=== PATIENT | female | born 1940 | race Caucasian/White ===

== ENCOUNTER → 2016-04-24 | Outpatient (CLI) | payer OTHER, BC ==
[~2016-04-24] MED LIST: ACET325T96 PO; AMLO2.5T PO; ASPCH81X PO; ASPEC81 PO; ASPI-435 PO; ATOR10TA88 PO; ATV5 PO; CALC-354 PO; CALCTAB5 PO; CTP1 PO; CTP1X PO; CTP2 PO; DOCU-94 PO; DOCU100C22 PO; LPT10 PO; METO50TA16 PO; MOML PO; MULT-411 PO; MULTTAB5 PO; OMEG10007 PO; OXYC1TAB3 PO; PANT40TA PO; SNM/25100 PO; SPR25 PO; TPRSR/100 PO
== END | disposition home or self-care (01) ==
LOC: C.LABSPEC 16:17
PROVIDERS: ATTEND Obstetrics & Gynecology
DX: N76.0 Acute vaginitis (principal)

== ENCOUNTER → 2016-04-28 | Outpatient (CLI) | payer OTHER, BC ==
[2016-04-28 18:02] LABS: BLOOD UREA NITROGEN 19 mg/dl (7-18); BUN/CREATININE RATIO 13.8 (10-20); CALCIUM 8.6 mg/dl (8.5-10.1); CARBON DIOXIDE 31 mmol/L (21-32); CHLORIDE 102 mmol/L (98-107); GLUCOSE 118 mg/dl (70-99); POTASSIUM 4.2 mmol/L (3.5-5.1); SODIUM 141 mmol/L (136-145)
[2016-04-28 18:09] LABS: URINE APPEARANCE CLEAR (CLEAR); URINE BILIRUBIN NEG (NEG); URINE COLOR YELLOW; URINE EPITHELIAL CELL AUTO >30 /lpf (0-5); URINE NITRITE NEG (NEG); URINE SPECIFIC GRAVITY 1.019 (1.000-1.030); UROBILINOGEN NEG (NEG)
[2016-04-28 18:13] LABS: MANUAL MICROSCOPIC REQUIRED? NO; REVIEW REQ? NO
== END | disposition home or self-care (01) ==
LOC: C.LABBC 14:32
PROVIDERS: ATTEND Internal Medicine
DX: R10.9 Unspecified abdominal pain (principal); R25.1 Tremor, unspecified

== ENCOUNTER → 2016-05-11 | Day surgery (SDC) | payer OTHER, BC ==
[~2016-05-11] VITALS: Ht 162.6 cm; Wt 53.5 kg
[~2016-05-11] MED LIST changes: +OPTIRAY 320 IV PRN; +SODIUM CHLORIDE 0.9% 150ML 150 ML IV SCH
[2016-05-11 09:50] VITALS: BP 154/69; PULSE 99; TEMP 36.2; O2SAT 93; Ht 162.6 cm; Wt 53.5 kg
--- NOTE | 2016-05-11 13:27 | DIAGNOSTIC IMAGING REPORT ---
CT SCAN OF THE ABDOMEN AND PELVIS COMBO PANCREAS PROTOCOL CLINICAL HISTORY: Follow-up cystic pancreatic lesion. COMPARISON STUDY: Abdominal CT scans dated 06/19/2014 and 01/24/2013. TECHNIQUE: Before and following the IV administration of 119 cc of Optiray 320, CT scan of the abdomen and pelvis is performed from the lung bases to the proximal femora. The abdominal CT is performed utilizing the pancreas protocol. Images are reviewed in the axial, sagittal, and coronal planes. IV contrast was administered without complication. Automated dose control exposure was utilized. The examination is degraded by streak artifact from the patient's arms which could not be elevated above the abdomen. CT DOSE: 1581.11 mGycm FINDINGS: Lung bases: The heart is mildly enlarged and there is trace pericardial fluid. Pacemaker leads are noted. The coronary arteries are densely calcified. Foci of scarring with tree-in-bud nodularity and mild bronchiectasis are noted in the right middle lobe and lingula. Calcified granulomas are present at both lung bases. No lobar consolidation or pleural effusion is identified. A fat-containing Bochdalek hernia is noted on the right. Liver: The contrast-enhanced liver is normal in size, contour, and attenuation. There is no intrahepatic biliary ductal dilatation. Hepatic and portal vasculature: Hepatic arterial anatomy is conventional. The hepatic veins, portal veins, superior mesenteric vein, and splenic vein are patent. Gallbladder: Unremarkable. Spleen: Normal in size and attenuation. Pancreas: There is mild glandular atrophy of the pancreas. The pancreatic duct is normal in caliber. No enhancing lesion is seen on the postcontrast images. There is unchanged appearance of a 7 mm ovoid cystic lesion the pancreatic body seen on image #119 as compared to the 06/19/2014 examination. Adrenal glands: Unremarkable. Kidneys: The contrast enhanced kidneys are atrophic. Postoperative change is suggested on the left. There is mild to moderate right-sided hydronephrosis, similar to prior studies. 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 Numerous nonobstructing calculi are noted in the right kidney, with many seen layering within the right-sided extrarenal pelvis. There are nonobstructing calculi seen in the lower pole of the left kidney. There is no left-sided hydronephrosis. The kidneys enhance symmetrically. A subcentimeter hypodensity in the right upper pole likely represents a cyst but is too small for definitive characterization. Abdominal vasculature: The abdominal aorta is normal in course and caliber noting advanced atherosclerotic calcification. Bowel: The small bowel and colon are normal in course and caliber. There is moderate colonic fecal retention. The appendix is well-visualized and normal. Peritoneum: There is no intraperitoneal free air or abdominal ascites. Lymphadenopathy: None. Pelvic viscera: The bladder is normal as visualized. There are calcified uterine fibroids. A vaginal pessary is in place. There is a 4.1 x 3.8 cm solid and cystic lesion in the right adnexa, likely related to the right ovary. This is seen on axial image #282. Skeletal structures: The skeletal structures are osteopenic. Mild lumbosacral spondylosis is observed. No lytic or blastic lesions are seen. There are healed left pubic ring fractures. IMPRESSION: 1. There is unchanged appearance of a 7 mm ovoid/cystic lesion in the body of the pancreas as compared to the 06/19/2014 examination. The appearance remains typical for a small sidebranch IPMN or less likely a mucinous cystic neoplasm. 2. A solid and cystic lesion in the right adnexa measuring up to 4.1 cm is likely related to the right ovary. The appearance is highly concerning for ovarian neoplasm; however, this has not significantly changed in size dating back to the 01/24/2013 examination. Consider gynecology follow-up. 3. There is unchanged appearance of right hydronephrosis with a UPJ type obstruction. There are bilateral nonobstructing renal calculi. 4. Again seen are postoperative changes from partial left nephrectomy. 5. Moderate colonic fecal retention. 6. There are foci of parenchymal nodularity and scarring with minimal bronchiectasis in the right middle lobe and lingula. The appearance suggests a chronic infectious process such as atypical mycobacterial infection. Consider nonemergent pulmonary follow-up. 7. Additional findings as above. Electronically signed by: Matt Arteaga M.D. 05/11/2016 1:25 PM Dictated Date/Time: 05/11/2016 1:07 PM
== END | disposition home or self-care (01) ==
LOC: EDSTATUS 04-24 10:00 → C.MTU 09:40
PROVIDERS: ATTEND Internal Medicine
DX: K86.89 Other specified diseases of pancreas (principal); N13.0 Hydronephrosis with ureteropelvic junction obstruction; N20.0 Calculus of kidney; N83.201 Unspecified ovarian cyst, right side; R10.9 Unspecified abdominal pain; Z85.528 Personal history of other malignant neoplasm of kidney; M85.80 Other specified disorders of bone density and structure, unspecified site

== ENCOUNTER 2016-05-15 11:04 | Inpatient (IN) | payer OTHER, BC ==
[~2016-05-15] VITALS: Ht 162.6 cm; Wt 53.4 kg
[~2016-05-15 11:04] MED LIST changes: -ACET325T96 PO; -ASPCH81X PO; -ASPI-435 PO; -ATOR10TA88 PO; -CALC-354 PO; -CALCTAB5 PO; -CTP1X PO; -CTP2 PO; -DOCU100C22 PO; -MOML PO; -MULT-411 PO; -OMEG10007 PO; -OPTIRAY 320 IV PRN; -OXYC1TAB3 PO; -PANT40TA PO; -SNM/25100 PO; -SODIUM CHLORIDE 0.9% 150ML 150 ML IV SCH; -SPR25 PO; -TPRSR/100 PO
[2016-05-15] MEDS ORDERED: ASPI-435 PO (11:32)
[2016-05-15] MEDS ORDERED: OMEG10007 PO (11:32)
[2016-05-15 12:16] LABS: BASO % 0.1 %; BASO ABS # 0.01 K/uL (0-0.2); COMPLETE YES; HEMATOCRIT 38.9 % (37-47); IG% 0.2 %; MEAN CELL VOLUME 86.8 fL (80-100); MEAN CORPUSCULAR HEMOGLOBIN 29.7 pg (25-34); MEAN CORPUSCULAR HGB CONC 34.2 g/dl (32-36); MEAN PLATELET VOLUME 11.1 fL (7.4-10.4); NEUT % 86.7 %; PLATELET COUNT 214 K/uL (130-400); RED BLOOD COUNT 4.48 M/uL (4.2-5.4); WHITE BLOOD COUNT 8.73 K/uL (4.8-10.8)
[2016-05-15 12:38] LABS: BUN/CREATININE RATIO 13.8 (10-20); CALCIUM 8.9 mg/dl (8.5-10.1); CREATININE 1.2 mg/dl (0.60-1.20); POTASSIUM 3.6 mmol/L (3.5-5.1); PROTHROMBIN TIME (PATIENT) 10.7 SECONDS (9.0-12.0)
--- NOTE | 2016-05-15 13:47 | DIAGNOSTIC IMAGING REPORT ---
CT OF THE HEAD WITHOUT CONTRAST CLINICAL HISTORY: Fall with head injury. COMPARISON STUDY: Head CT February 10, 2015. CT DOSE: 859.24 mGy.cm TECHNIQUE: Helical axial images of the head were obtained without IV contrast. Automated exposure control was utilized for the study. FINDINGS: No acute intracranial hemorrhage, midline shift or mass effect is present. Ventricular system is normal. Basilar cisterns are patent. There are no extra-axial collections. Diaz-white differentiation is preserved. White matter hypodensity suggests small vessel disease. There are no findings to suggest acute dural sinus thrombosis or acute territorial infarct. A subcentimeter hypodensity within the left basal ganglia is unchanged. There is no calvarial fracture. A tiny air-fluid level within the sphenoid sinuses is noted. IMPRESSION: 1. No acute intracranial findings. 2. No calvarial fracture. Electronically signed by: Akil Cervantes M.D. 05/15/2016 1:46 PM Dictated Date/Time: 05/15/2016 1:44 PM
--- NOTE | 2016-05-15 13:55 | DIAGNOSTIC IMAGING REPORT ---
CT SCAN OF THE CERVICAL SPINE CLINICAL HISTORY: Trauma. Fall. COMPARISON STUDY: CT scan of cervical spine dated 02/10/2015. TECHNIQUE: CT scan of the cervical spine is performed from the skull base to the upper thoracic spine. Images are reviewed in the axial, sagittal, and coronal planes. IV contrast was not administered for this examination. FINDINGS: Skeletal structures: The skeletal structures are osteopenic. There is no evidence of fracture or subluxation involving the cervical spine. Vertebral body height and alignment are maintained. The odontoid process and lateral masses are intact. The atlantoaxial articulation is preserved noting productive degenerative change. The spinous processes appear intact. There is mild to moderate multilevel cervical spondylosis. Facet arthropathy is noted throughout and contributes to multilevel neural foraminal stenosis. Intervertebral discs: There is moderate degenerative disc space narrowing at C5-C6. The remaining disc spaces appear well maintained. Central canal: A posterior disc osteophyte complex at C5-C6 may contribute to mild acquired compromise of the central canal. Soft tissues: The prevertebral and paraspinous soft tissues are within normal limits. There is atherosclerotic calcification of the carotid bulbs. There is a 7 mm nodule in the posterior right lobe of the thyroid gland. Calvarium: The visualized calvarium at the skull base appears intact. Brain parenchyma: Partially visualized brain parenchyma the skull base is within normal limits noting age-related involutional change. Sinuses and mastoids: Trace fluid is present within the sphenoid sinuses. There is a small left mastoid effusion. The right mastoid air cells are well pneumatized. Lung apices: Biapical scarring is observed. Partially imaged apical lung parenchyma is otherwise clear as visualized. IMPRESSION: 1. There is no evidence of fracture or subluxation involving the cervical spine. 2. Osteopenia and spondylotic change as above. Electronically signed by: Matt Arteaga M.D. 05/15/2016 1:54 PM Dictated Date/Time: 05/15/2016 1:49 PM
--- NOTE | 2016-05-15 14:34 | DIAGNOSTIC IMAGING REPORT ---
CHEST ONE VIEW PORTABLE CLINICAL HISTORY: Pain status post Trauma COMPARISON STUDY: 12/19/2014 FINDINGS: The heart is at the upper limits of normal in size. There is a left subclavian dual-chamber central venous pacemaker present. The patient is mildly hyperinflated. There is no focal pulmonary consolidation. There are no pleural effusions. No pneumothorax is visualized.[ IMPRESSION: No active disease in the chest. Electronically signed by: Mihir Woods M.D. 05/15/2016 2:32 PM Dictated Date/Time: 05/15/2016 2:30 PM
--- NOTE | 2016-05-15 14:35 | DIAGNOSTIC IMAGING REPORT ---
SINGLE VIEW PELVIS; 2 VIEWS RIGHT HIP CLINICAL HISTORY: Fall with right hip pain. FINDINGS: An AP portable pelvic radiograph with AP and frog-leg portable views of the right hip are correlated with pelvic CT dated 05/11/2016. The skeletal structures are osteopenic. There is no radiographic evidence of fracture in the hips or bony pelvis. Mild arthritic change is seen in both hips. Mild sclerotic change is noted in the sacroiliac joints. There is contour deformity from a healed left pubic ring fracture. The overlying soft tissues are within normal limits. Advanced atherosclerotic calcification is present in the femoral arteries. There is a nonobstructed abdominal bowel gas pattern noting moderate colonic fecal retention. Residual enteric contrast is noted in the rectosigmoid colon. IMPRESSION: 1. No acute bony abnormality is seen in the hips or pelvis. 2. Osteopenia and mild degenerative change as above. 3. Constipation. Electronically signed by: Matt Arteaga M.D. 05/15/2016 2:33 PM Dictated Date/Time: 05/15/2016 2:31 PM
[2016-05-15 14:59] LABS: URINE APPEARANCE CLOUDY (CLEAR); URINE BILIRUBIN NEG (NEG); URINE COLOR YELLOW; URINE NITRITE NEG (NEG); URINE SPECIFIC GRAVITY 1.014 (1.000-1.030); UROBILINOGEN NEG (NEG); ZZURINE CULT IF INDIC CATH NO
[2016-05-15 15:02] LABS: MANUAL MICROSCOPIC REQUIRED? NO; REVIEW REQ? NO
[2016-05-15] MEDS ORDERED: ACETAMINOPHEN 325 MG TAB PO PRN (15:15)
[2016-05-15] MEDS ORDERED: METOPROLOL TARTRATE 50 MG TAB PO PRN (15:15)
[2016-05-15] MEDS ORDERED: ONDANSETRON INJ 2 MG/ML 2 ML VIAL IV PRN (15:15)
[2016-05-15] MEDS ORDERED: ALUMINUM/MAGNESIUM/SIMETH (MAALOX MAX) 30 ML UDC PO PRN (15:15)
[2016-05-15] MEDS ORDERED: MAGNESIUM HYDROXIDE SUSP 30 ML UDC PO PRN (15:15)
[2016-05-15] MEDS ORDERED: POLYETHYLENE (MIRALAX) 17 GM PACK PO PRN ×2 (15:15→16:00)
--- NOTE | 2016-05-15 15:23 | History and Physical ---
History & Physical Date & Time of Service: May 15, 2016 at 15:10 Chief Complaint: FALL Primary Care Physician: RV. Briggs MD History of Present Illness Source: patient, family Patient is a pleasant 75 y/o female, with PMHx of Parkinson disease, HTN, HDL, CAD, paroxysmal a.fib, s/p pacemaker implant, and GERD, who presented to the ED because of a fall occurring the night of 05/14-05/15. Per patient, she went to bed feeling well. She does not remember falling. She denies any injuries or pain at this time. Family states that patient's Parkinson has been progressing rapidly. She has had multiple falls over the last couple of months. Her dementia has been progressing as well. They do not feel she is safe to live at home alone anymore. Patient denies any fever, chills, sweats, lightheadedness, dizziness, vision changes, CP, palpitations, edema, SOB, wheezing, cough, abdominal pain, nausea, vomiting, diarrhea, urinary symptoms, melena, numbness/tingling, weakness, muscle/joint pain, anxiety/depression, active bleeding, or new skin discoloration/changes. Past Medical/Surgical History Medical Problems: 1. Parkinson disease2 2. HTN 3. HDL 4. CAD 5. Paroxysmal a.fib 6. s/p pacemaker implant 7. GERD Family History No pertinent family history Social History Smoking Status: Former Smoker Drug Use: none Housing status: lives alone Occupational Status: retired Immunizations History of Influenza Vaccine: Yes Influenza Vaccine Date: Nov 26, 2008 History of Tetanus Vaccine?: Yes Tetanus Immunization Date: Nov 27, 2007 History of Pneumococcal: Yes Pneumococcal Date: Nov 27, 2007 History of Hepatitis B Vaccine: No Multi-Drug Resistant Organisms History of MDRO: No Allergies Coded Allergies: Diclofenac (Verified Adverse Reaction, Severe, NAUSEA, 05/15/16) Penicillins (Verified Adverse Reaction, Severe, N/V, 05/15/16) Replaces AUGMENTIN 250 Ciprofloxacin (Verified Adverse Reaction, Unknown, "i get irregular heartbeat.", 05/15/16) Home Medications Scheduled Amlodipine (Norvasc), 2.5 MG PO DAILY Aspirin (Aspirin 81), 162 MG PO DAILY Atorvastatin (Lipitor), 10 MG PO DAILY Calcium Carbonate-Cholecalcife (Caltrate 600+D), 1 TAB PEG BID Clonidine HCl (Clonidine HCl), 1 MG PO BID Clonidine HCl (Clonidine HCl), 0.2 MG PO HS Docusate Sodium (Colace), 200 MG PO QAM Fish Oil (Century-3), 2 CAP PO BID Metoprolol Succinate (Metoprolol Succinate ER), 100 MG PO BID Pantoprazole (Protonix), 40 MG PO DAILY Scheduled PRN Lorazepam (Lorazepam), 0.5 MG PO TID PRN for . Metoprolol Tartrate (Lopressor) (Lopressor), 50 MG PO DAILY PRN for PALPITATIONS Miscellaneous Medications Multiple Vitamins W/ Minerals (Centrum), PO Spironolactone (Spironolactone) Physical Exam Vital Signs Date Time Temp Pulse Resp B/P Pulse Ox O2 Delivery O2 Flow Rate FiO2 05/15/16 12:13 71 05/15/16 11:09 36.6 70 16 116/62 94 Room Air General Appearance: no apparent distress Head: normocephalic, atraumatic Eyes: normal inspection, PERRL ENT: hearing grossly normal Neck: supple Respiratory/Chest: lungs clear, no respiratory distress, no accessory muscle use Cardiovascular: regular rate, rhythm Abdomen/GI: normal bowel sounds, non tender, soft Back: normal inspection Extremities/Musculoskelatal: no calf tenderness, no pedal edema Neurologic/Psych: alert, + pertinent finding (parkinson tremor ) Skin: normal color, warm/dry, no rash Diagnostics Laboratory Results Results Past 24 Hours Test 05/15/16 12:00 05/15/16 14:25 Range/Units White Blood Count 8.73 4.8-10.8 K/uL Red Blood Count 4.48 4.2-5.4 M/uL Hemoglobin 13.3 12.0-16.0 g/dL Hematocrit 38.9 37-47 % Mean Corpuscular Volume 86.8 80-100 fL Mean Corpuscular Hemoglobin 29.7 25-34 pg Mean Corpuscular Hemoglobin Concent 34.2 32-36 g/dl Platelet Count 214 130-400 K/uL Mean Platelet Volume 11.1 7.4-10.4 fL Neutrophils (%) (Auto) 86.7 % Lymphocytes (%) (Auto) 8.0 % Monocytes (%) (Auto) 5.0 % Eosinophils (%) (Auto) 0.0 % Basophils (%) (Auto) 0.1 % Neutrophils # (Auto) 7.56 1.4-6.5 K/uL Lymphocytes # (Auto) 0.70 1.2-3.4 K/uL Monocytes # (Auto) 0.44 0.11-0.59 K/uL Eosinophils # (Auto) 0.00 0-0.5 K/uL Basophils # (Auto) 0.01 0-0.2 K/uL RDW Standard Deviation 41.8 36.4-46.3 fL RDW Coefficient of Variation 13.1 11.5-14.5 % Immature Granulocyte % (Auto) 0.2 % Immature Granulocyte # (Auto) 0.02 0.00-0.02 K/uL Prothrombin Time 10.7 9.0-12.0 SECONDS Prothromb Time International Ratio 1.0 0.9-1.1 Activated Partial Thromboplast Time 25.0 21.0-31.0 SECONDS Partial Thromboplastin Ratio 1.0 Sodium Level 137 136-145 mmol/L Potassium Level 3.6 3.5-5.1 mmol/L Chloride Level 99 98-107 mmol/L Carbon Dioxide Level 28 21-32 mmol/L Anion Gap 10.0 3-11 mmol/L Blood Urea Nitrogen 17 7-18 mg/dl Creatinine 1.20 0.60-1.20 mg/dl Est Creatinine Clear Calc Drug Dose 33.1 ml/min Estimated GFR () 50.5 Estimated GFR (Non- 43.6 BUN/Creatinine Ratio 13.8 10-20 Random Glucose 101 70-99 mg/dl Calcium Level 8.9 8.5-10.1 mg/dl Total Bilirubin 0.5 0.2-1 mg/dl Aspartate Amino Transf (AST/SGOT) 26 15-37 U/L Alanine Aminotransferase (ALT/SGPT) 31 12-78 U/L Alkaline Phosphatase 104 45-117 U/L Total Creatine Kinase 349 26-192 U/L Total Protein 7.5 6.4-8.2 gm/dl Albumin 3.7 3.4-5.0 gm/dl Globulin 3.8 2.5-4.0 gm/dl Albumin/Globulin Ratio 1.0 0.9-2 Urine Color YELLOW Urine Appearance CLOUDY CLEAR Urine pH 7.0 4.5-7.5 Urine Specific [place] 1.014 1.000-1.030 Urine Protein 1+ NEG Urine Glucose (UA) NEG NEG Urine Ketones 1+ NEG Urine Occult Blood 3+ NEG Urine Nitrite NEG NEG Urine Bilirubin NEG NEG Urine Urobilinogen NEG NEG Urine Leukocyte Esterase TRACE NEG Urine WBC (Auto) 1-5 0-5 /hpf Urine RBC (Auto) >30 0-4 /hpf Urine Hyaline Casts (Auto) 0 0-5 /lpf Urine Epithelial Cells (Auto) 5-10 0-5 /lpf Urine Bacteria (Auto) NEG NEG Diagnostic Radiology SINGLE VIEW PELVIS; 2 VIEWS RIGHT HIP CLINICAL HISTORY: Fall with right hip pain. FINDINGS: An AP portable pelvic radiograph with AP and frog-leg portable views of the right hip are correlated with pelvic CT dated 05/11/2016. The skeletal structures are osteopenic. There is no radiographic evidence of fracture in the hips or bony pelvis. Mild arthritic change is seen in both hips. Mild sclerotic change is noted in the sacroiliac joints. There is contour deformity from a healed left pubic ring fracture. The overlying soft tissues are within normal limits. Advanced atherosclerotic calcification is present in the femoral arteries. There is a nonobstructed abdominal bowel gas pattern noting moderate colonic fecal retention. Residual enteric contrast is noted in the rectosigmoid colon. IMPRESSION: 1. No acute bony abnormality is seen in the hips or pelvis. 2. Osteopenia and mild degenerative change as above. 3. Constipation. Electronically signed by: Matt Arteaga M.D. 05/15/2016 2:33 PM Dictated Date/Time: 05/15/2016 2:31 PM The status of this report is Signed. Draft = Not yet reviewed or approved by Radiologist. Signed = Reviewed and approved by Radiologist. CT OF THE HEAD WITHOUT CONTRAST CLINICAL HISTORY: Fall with head injury. COMPARISON STUDY: Head CT February 10, 2015. CT DOSE: 859.24 mGy.cm TECHNIQUE: Helical axial images of the head were obtained without IV contrast. Automated exposure control was utilized for the study. FINDINGS: No acute intracranial hemorrhage, midline shift or mass effect is present. Ventricular system is normal. Basilar cisterns are patent. There are no extra-axial collections. Diaz-white differentiation is preserved. White matter hypodensity suggests small vessel disease. There are no findings to suggest acute dural sinus thrombosis or acute territorial infarct. A subcentimeter hypodensity within the left basal ganglia is unchanged. There is no calvarial fracture. A tiny air-fluid level within the sphenoid sinuses is noted. IMPRESSION: 1. No acute intracranial findings. 2. No calvarial fracture. Electronically signed by: Akil Cervantes M.D. 05/15/2016 1:46 PM Dictated Date/Time: 05/15/2016 1:44 PM The status of this report is Signed. Draft = Not yet reviewed or approved by Radiologist. Signed = Reviewed and approved by Radiologist. CT SCAN OF THE CERVICAL SPINE CLINICAL HISTORY: Trauma. Fall. COMPARISON STUDY: CT scan of cervical spine dated 02/10/2015. TECHNIQUE: CT scan of the cervical spine is performed from the skull base to the upper thoracic spine. Images are reviewed in the axial, sagittal, and coronal planes. IV contrast was not administered for this examination. FINDINGS: Skeletal structures: The skeletal structures are osteopenic. There is no evidence of fracture or subluxation involving the cervical spine. Vertebral body height and alignment are maintained. The odontoid process and lateral masses are intact. The atlantoaxial articulation is preserved noting productive degenerative change. The spinous processes appear intact. There is mild to moderate multilevel cervical spondylosis. Facet arthropathy is noted throughout and contributes to multilevel neural foraminal stenosis. Intervertebral discs: There is moderate degenerative disc space narrowing at C5-C6. The remaining disc spaces appear well maintained. Central canal: A posterior disc osteophyte complex at C5-C6 may contribute to mild acquired compromise of the central canal. Soft tissues: The prevertebral and paraspinous soft tissues are within normal limits. There is atherosclerotic calcification of the carotid bulbs. There is a 7 mm nodule in the posterior right lobe of the thyroid gland. Calvarium: The visualized calvarium at the skull base appears intact. Brain parenchyma: Partially visualized brain parenchyma the skull base is within normal limits noting age-related involutional change. Sinuses and mastoids: Trace fluid is present within the sphenoid sinuses. There is a small left mastoid effusion. The right mastoid air cells are well pneumatized. Lung apices: Biapical scarring is observed. Partially imaged apical lung parenchyma is otherwise clear as visualized. IMPRESSION: 1. There is no evidence of fracture or subluxation involving the cervical spine. 2. Osteopenia and spondylotic change as above. Electronically signed by: Matt Arteaga M.D. 05/15/2016 1:54 PM Dictated Date/Time: 05/15/2016 1:49 PM The status of this report is Signed. Draft = Not yet reviewed or approved by Radiologist. Signed = Reviewed and approved by Radiologist. CHEST ONE VIEW PORTABLE CLINICAL HISTORY: Pain status post Trauma COMPARISON STUDY: 12/19/2014 FINDINGS: The heart is at the upper limits of normal in size. There is a left subclavian dual-chamber central venous pacemaker present. The patient is mildly hyperinflated. There is no focal pulmonary consolidation. There are no pleural effusions. No pneumothorax is visualized.[ IMPRESSION: No active disease in the chest. Electronically signed by: Mihir Woods M.D. 05/15/2016 2:32 PM Dictated Date/Time: 05/15/2016 2:30 PM The status of this report is Signed. Draft = Not yet reviewed or approved by Radiologist. Signed = Reviewed and approved by Radiologist. EKG HUERTAAugust ID:[id number] 15-MAY-2016 11:14:59 [facility] Poor data quality, interpretation may be adversely affected Atrial-paced rhythm Left axis deviation Left bundle branch block Abnormal ECG When compared with ECG of 29-SEP-2013 00:45, Electronic atrial pacemaker has replaced Sinus rhythm QT has lengthened Confirmed by MILY KENNEDY ([id number]) on 05/15/2016 2:02:13 PM 25mm/s 10mm/mV 150Hz 8.0 SP2 12SL 241 HD REBECA: 12 Referred by: Confirmed By: MILY Lucero. rate 72 BPM AR interval 206 ms QRS duration 138 ms QT/QTc 470/514 ms P-R-T axes 56 -60 88 1940 (75 yr) Female Room:C07 Loc:15 Quotation Checker:SHANNAN Lewis ind: Impression Assessment and Plan 75 y/o female, with PMHx of Parkinson disease, HTN, HDL, CAD, paroxysmal a.fib, s/p pacemaker implant, and GERD, who presented to the ED because of a fall occurring the night of 05/14-05/15, with family wanting placement. s/p fall: - Admit med/surg w/ fall precautions - IV NSS @ 80 ml/hr - Consult PT/OT - U/A dirty, pending urine culture - PRP and CPK tomorrow AM HTN: Continue Norvasc 2.5 mg, Clonidine 1 mg BID HDL: Continue Atorvastatin 10 mg A.fib: Continue Metoprolol 100 mg BID and 50 mg PRN CAD: Continue ASA 81 mg GERD: Continue Protonix daily GI Prophylaxis: Maalox PRN, IV Zofran PRN, Colace and/or Milk of Mag PRN DVT prophylaxis: Heparin 5000 units SQ q12 hrs, ANETTE and SCDs Code Status: LEVEL I, FULL Dispo: From home, lives alone- family states patient is not safe to live at home , wants placement- social media marketing specialist consulted Level of Care Med/Surg Resuscitation Status FULL RESUSCITATION VTE Prophylaxis VTE Risk Assessment Done? Y/N: Yes Risk Level: Moderate Given or contraindicated: Unfractionated heparin SQ, T.E.D. Stockings, SCD's
[2016-05-15 16:45] VITALS: BP 156/69; PULSE 77; TEMP 37.3; O2SAT 96
[2016-05-15] MEDS ORDERED: SULFAMETHOXAZOLE/TRIMETHOPRIM DS 800/160MG TAB PO ONE (17:00)
[2016-05-15] MEDS ORDERED: POLYETHYLENE (MIRALAX) 17 GM PACK PO ONE (17:00)
[2016-05-15] MEDS: SODIUM CHLORIDE 0.9% 1000ML 1,000 ML IV SCH (17:34)
[2016-05-15] MEDS: CLONIDINE HCL 0.1 MG TAB PO SCH ×2 (17:34→20:18)
--- NOTE | 2016-05-15 17:51 | EMERGENCY ROOM VISIT NOTE ---
History Report prepared by Gt: Varun Hooks Under the Supervision of: Dr. Villa England D.O. First contact with patient: 12:44 Chief Complaint: FALL Stated Complaint: FALL History of Present Illness The patient is a 75 year old female with a history of Parkinson's disease who presents to the Emergency Room with complaints of an acute fall that occurred sometime last night. The patient's neighbor noticed that her lights were still on this morning which usually indicates that something is wrong. The patient was found on the floor next to her bed this morning. The patient stated to her family that she believes it was getting dark when she fell. She now states that she remembers getting into bed, but cannot remember getting up to go to the bathroom. The patient has some trouble with remembering at baseline. She is not on any blood thinners other than aspirin. The patient complains of some intermittent leg pain, but she does not currently have the pain. Patient denies headache, neck pain, change in vision, fevers, chest pain, shortness of breath, nausea, vomiting, diarrhea, pain with urination, and melena. She does not normally wear oxygen. Her last bowel movement was several days ago, which is normal. She has a past history of cancer but is in remission. She has a pacemaker. The patient's children do not believe that the patient should be living alone. Source of History: patient, family Onset: last night Position: other (global) Quality: other (fall) Timing: other (acute) Associated Symptoms: No SOB, No chest pain, No diarrhea, No fevers, No headache, No melena, No nausea, No neck pain, No urinary symptoms, No vomiting Review of Systems See HPI for pertinent positives & negatives. A total of 10 systems reviewed and were otherwise negative. Past Medical & Surgical Medical Problems: (1) A-fib (2) Fall (3) Reflux Family History No pertinent family history Social History Smoking Status: Former Smoker Drug Use: none Housing Status: lives with family Occupation Status: retired Current/Historical Medications Scheduled Amlodipine (Norvasc), 2.5 MG PO DAILY Aspirin (Aspirin 81), 162 MG PO DAILY Atorvastatin (Lipitor), 10 MG PO DAILY Calcium Carbonate-Cholecalcife (Caltrate 600+D), 1 TAB PEG BID Clonidine HCl (Clonidine HCl), 1 MG PO BID Clonidine HCl (Clonidine HCl), 0.2 MG PO HS Docusate Sodium (Colace), 200 MG PO QAM Fish Oil (Peterson-3), 2 CAP PO BID Metoprolol Succinate (Metoprolol Succinate ER), 100 MG PO BID Pantoprazole (Protonix), 40 MG PO DAILY Scheduled PRN Lorazepam (Lorazepam), 0.5 MG PO TID PRN for . Metoprolol Tartrate (Lopressor) (Lopressor), 50 MG PO DAILY PRN for PALPITATIONS Miscellaneous Medications Multiple Vitamins W/ Minerals (Centrum), PO Spironolactone (Spironolactone) Allergies Coded Allergies: Diclofenac (Verified Adverse Reaction, Severe, NAUSEA, 05/15/16) Penicillins (Verified Adverse Reaction, Severe, N/V, 05/15/16) Replaces AUGMENTIN 250 Ciprofloxacin (Verified Adverse Reaction, Unknown, "i get irregular heartbeat.", 05/15/16) Physical Exam Vital Signs Date Time Temp Pulse Resp B/P Pulse Ox O2 Delivery O2 Flow Rate FiO2 05/15/16 14:00 64 16 122/66 94 05/15/16 12:13 71 05/15/16 11:09 36.6 70 16 116/62 94 Room Air Physical Exam GENERAL: Chronically ill appearing, sitting up in bed, no acute distress. HEAD: normal cephalic, atraumatic EYE EXAM: normal conjunctiva, PERRL and EOM's grossly intact OROPHARYNX: no exudate, no erythema, lips, buccal mucosa, and tongue normal and mucous membranes are moist EARS: TMs clear b/l NECK: supple, no nuchal rigidity, no adenopathy, mild bilateral paraspinal tenderness. CHEST: stable to compression anteriorly and posteriorly LUNGS: clear to auscultation. Normal chest wall mechanics HEART: no murmurs, S1 normal and S2 normal ABDOMEN: abdomen soft, non-tender, normo-active bowel sounds, no masses, no rebound or guarding. PELVIS: stable to compression anteriorly and posteriorly BACK: Back is symmetrical on inspection and there is no deformity, no midline tenderness, no CVA tenderness. UPPER EXTREMITIES: full active and passive range of motion of all joints without tenderness to palpation LOWER EXTREMITIES: full active and passive range of motion of all joints without tenderness to palpation NEURO EXAM: Normal sensorium, cranial nerves II-XII grossly intact, normal speech. GCS: 15. Intermittent shaking of the upper extremities. Medical Decision & Procedures ER Provider Diagnostic Interpretation: Xray results per the radiologist and my interpretation. Other results have been interpreted by the radiologist and reviewed by me. CHEST ONE VIEW PORTABLE CLINICAL HISTORY: Pain status post Trauma COMPARISON STUDY: 12/19/2014 FINDINGS: The heart is at the upper limits of normal in size. There is a left subclavian dual-chamber central venous pacemaker present. The patient is mildly hyperinflated. There is no focal pulmonary consolidation. There are no pleural effusions. No pneumothorax is visualized.[ IMPRESSION: No active disease in the chest. Electronically signed by: Mihir Woods M.D. 05/15/2016 2:32 PM Dictated Date/Time: 05/15/2016 2:[address] SCAN OF THE CERVICAL SPINE CLINICAL HISTORY: Trauma. Fall. COMPARISON STUDY: CT scan of cervical spine dated 02/10/2015. TECHNIQUE: CT scan of the cervical spine is performed from the skull base to the upper thoracic spine. Images are reviewed in the axial, sagittal, and coronal planes. IV contrast was not administered for this examination. FINDINGS: Skeletal structures: The skeletal structures are osteopenic. There is no evidence of fracture or subluxation involving the cervical spine. Vertebral body height and alignment are maintained. The odontoid process and lateral masses are intact. The atlantoaxial articulation is preserved noting productive degenerative change. The spinous processes appear intact. There is mild to moderate multilevel cervical spondylosis. Facet arthropathy is noted throughout and contributes to multilevel neural foraminal stenosis. Intervertebral discs: There is moderate degenerative disc space narrowing at C5-C6. The remaining disc spaces appear well maintained. Central canal: A posterior disc osteophyte complex at C5-C6 may contribute to mild acquired compromise of the central canal. Soft tissues: The prevertebral and paraspinous soft tissues are within normal limits. There is atherosclerotic calcification of the carotid bulbs. There is a 7 mm nodule in the posterior right lobe of the thyroid gland. Calvarium: The visualized calvarium at the skull base appears intact. Brain parenchyma: Partially visualized brain parenchyma the skull base is within normal limits noting age-related involutional change. Sinuses and mastoids: Trace fluid is present within the sphenoid sinuses. There is a small left mastoid effusion. The right mastoid air cells are well pneumatized. Lung apices: Biapical scarring is observed. Partially imaged apical lung parenchyma is otherwise clear as visualized. IMPRESSION: 1. There is no evidence of fracture or subluxation involving the cervical spine. 2. Osteopenia and spondylotic change as above. Electronically signed by: Matt Arteaga M.D. 05/15/2016 1:54 PM Dictated Date/Time: 05/15/2016 1:[address] OF THE HEAD WITHOUT CONTRAST CLINICAL HISTORY: Fall with head injury. COMPARISON STUDY: Head CT February 10, 2015. CT DOSE: 859.24 mGy.cm TECHNIQUE: Helical axial images of the head were obtained without IV contrast. Automated exposure control was utilized for the study. FINDINGS: No acute intracranial hemorrhage, midline shift or mass effect is present. Ventricular system is normal. Basilar cisterns are patent. There are no extra-axial collections. Diaz-white differentiation is preserved. White matter hypodensity suggests small vessel disease. There are no findings to suggest acute dural sinus thrombosis or acute territorial infarct. A subcentimeter hypodensity within the left basal ganglia is unchanged. There is no calvarial fracture. A tiny air-fluid level within the sphenoid sinuses is noted. IMPRESSION: 1. No acute intracranial findings. 2. No calvarial fracture. Electronically signed by: Akil Cervantes M.D. 05/15/2016 1:46 PM Dictated Date/Time: 05/15/2016 1:44 PM SINGLE VIEW PELVIS; 2 VIEWS RIGHT HIP CLINICAL HISTORY: Fall with right hip pain. FINDINGS: An AP portable pelvic radiograph with AP and frog-leg portable views of the right hip are correlated with pelvic CT dated 05/11/2016. The skeletal structures are osteopenic. There is no radiographic evidence of fracture in the hips or bony pelvis. Mild arthritic change is seen in both hips. Mild sclerotic change is noted in the sacroiliac joints. There is contour deformity from a healed left pubic ring fracture. The overlying soft tissues are within normal limits. Advanced atherosclerotic calcification is present in the femoral arteries. There is a nonobstructed abdominal bowel gas pattern noting moderate colonic fecal retention. Residual enteric contrast is noted in the rectosigmoid colon. IMPRESSION: 1. No acute bony abnormality is seen in the hips or pelvis. 2. Osteopenia and mild degenerative change as above. 3. Constipation. Electronically signed by: Matt Arteaga M.D. 05/15/2016 2:33 PM Dictated Date/Time: 05/15/2016 2:31 PM Laboratory Results 05/15/16 12:00 Red Blood Count 4.48, Mean Corpuscular Volume 86.8, Mean Corpuscular Hemoglobin 29.7, Mean Corpuscular Hemoglobin Concent 34.2, Mean Platelet Volume 11.1, Neutrophils (%) (Auto) 86.7, Lymphocytes (%) (Auto) 8.0, Monocytes (%) (Auto) 5.0, Eosinophils (%) (Auto) 0.0, Basophils (%) (Auto) 0.1, Neutrophils # (Auto) 7.56, Lymphocytes # (Auto) 0.70, Monocytes # (Auto) 0.44, Eosinophils # (Auto) 0.00, Basophils # (Auto) 0.01 05/15/16 12:00 Test 05/15/16 12:00 05/15/16 14:25 White Blood Count 8.73 K/uL (4.8-10.8) Red Blood Count 4.48 M/uL (4.2-5.4) Hemoglobin 13.3 g/dL (12.0-16.0) Hematocrit 38.9 % (37-47) Mean Corpuscular Volume 86.8 fL (80-100) Mean Corpuscular Hemoglobin 29.7 pg (25-34) Mean Corpuscular Hemoglobin Concent 34.2 g/dl (32-36) Platelet Count 214 K/uL (130-400) Mean Platelet Volume 11.1 fL (7.4-10.4) Neutrophils (%) (Auto) 86.7 % Lymphocytes (%) (Auto) 8.0 % Monocytes (%) (Auto) 5.0 % Eosinophils (%) (Auto) 0.0 % Basophils (%) (Auto) 0.1 % Neutrophils # (Auto) 7.56 K/uL (1.4-6.5) Lymphocytes # (Auto) 0.70 K/uL (1.2-3.4) Monocytes # (Auto) 0.44 K/uL (0.11-0.59) Eosinophils # (Auto) 0.00 K/uL (0-0.5) Basophils # (Auto) 0.01 K/uL (0-0.2) RDW Standard Deviation 41.8 fL (36.4-46.3) RDW Coefficient of Variation 13.1 % (11.5-14.5) Immature Granulocyte % (Auto) 0.2 % Immature Granulocyte # (Auto) 0.02 K/uL (0.00-0.02) Prothrombin Time 10.7 SECONDS (9.0-12.0) Prothromb Time International Ratio 1.0 (0.9-1.1) Activated Partial Thromboplast Time 25.0 SECONDS (21.0-31.0) Partial Thromboplastin Ratio 1.0 Anion Gap 10.0 mmol/L (3-11) Est Creatinine Clear Calc Drug Dose 33.1 ml/min Estimated GFR () 50.5 Estimated GFR (Non- 43.6 BUN/Creatinine Ratio 13.8 (10-20) Calcium Level 8.9 mg/dl (8.5-10.1) Total Bilirubin 0.5 mg/dl (0.2-1) Aspartate Amino Transf (AST/SGOT) 26 U/L (15-37) Alanine Aminotransferase (ALT/SGPT) 31 U/L (12-78) Alkaline Phosphatase 104 U/L (45-117) Total Creatine Kinase 349 U/L (26-192) Total Protein 7.5 gm/dl (6.4-8.2) Albumin 3.7 gm/dl (3.4-5.0) Globulin 3.8 gm/dl (2.5-4.0) Albumin/Globulin Ratio 1.0 (0.9-2) Urine Color YELLOW Urine Appearance CLOUDY (CLEAR) Urine pH 7.0 (4.5-7.5) Urine Specific [place] 1.014 (1.000-1.030) Urine Protein 1+ (NEG) Urine Glucose (UA) NEG (NEG) Urine Ketones 1+ (NEG) Urine Occult Blood 3+ (NEG) Urine Nitrite NEG (NEG) Urine Bilirubin NEG (NEG) Urine Urobilinogen NEG (NEG) Urine Leukocyte Esterase TRACE (NEG) Urine WBC (Auto) 1-5 /hpf (0-5) Urine RBC (Auto) >30 /hpf (0-4) Urine Hyaline Casts (Auto) 0 /lpf (0-5) Urine Epithelial Cells (Auto) 5-10 /lpf (0-5) Urine Bacteria (Auto) NEG (NEG) Laboratory results per my review. ECG Indication: other (fall) Rate (beats per minute): 72 Rhythm: other (atrial paced rhythm) Findings: LBBB, left axis deviation ED Course ED COURSE: Vital signs were reviewed and were normal. The patients medical record was reviewed The above diagnostic studies were performed and reviewed. ED treatments and interventions as stated above. 1250: The patient was evaluated in room C7. A complete history and physical examination was performed. 1440: [facility] The [facility] will be evaluated. 1445: Upon reevaluation, the patient is stable.I discussed my findings with the patient and she understands and agrees with the treatment plan. Based on the patients age, coexisting illnesses, exam and lab findings the decision to treat as an inpatient was made. The patient remained stable while under my care. The patient will be evaluated for further management. Medical Decision Differential diagnoses include major intracranial, cervical, spinal, thoracic, abdominal, pelvic and neurologic injury. Fracture, contusion, sprain, strain, laceration, abrasions included as well. Patient is a 75-year-old female who presents the ER for recurrent falls and unable to care for self at home. Labs show no significant leukocytosis or anemia. BMP along with LFTs and CK are unremarkable. UA was unremarkable. CT head and cervical spine show no acute fractures. Chest x-ray along with x-ray of the hip and pelvis were unremarkable. Multiple discussions with family and they are unable to take her home. Pacemaker interrogation shows A. fib but otherwise unremarkable. At this time she was discussed with internal medicine for a ambulatory dysfunction. Consults Time Called: 1425 Consulting Physician[facility] Returned Call: [phone]: Spoke with Dr. Willoughby [facility]. The patient will be evaluated. Impression Primary Impression: Ambulatory dysfunction Additional Impression: Fall Scribe Attestation The scribe's documentation has been prepared under my direction and personally reviewed by me in its entirety. I confirm that the note above accurately reflects all work, treatment, procedures, and medical decision making performed by me. Departure Information Dispostion Being Evaluated By Hospitalist Referrals RV. Briggs MD (PCP) Patient Instructions My [facility] Problem Qualifiers Additional Impression: Fall Encounter type: initial encounter Qualified Codes: W19.XXXA - Unspecified fall, initial encounter
[2016-05-15 18:16] VITALS: BP 156/69; PULSE 77; TEMP 37.3; O2SAT 94; Ht 162.6 cm; Wt 53.4 kg
[2016-05-15] MEDS: CEFTRIAXONE SOD INJ 1 GM in DEXTROSE 5% ADD-VANTAGE 50ML 50 ML IV SCH (20:03)
[2016-05-15 20:13] VITALS: BP 139/72; PULSE 72; TEMP 36.8; O2SAT 93
[2016-05-15] MEDS: LORAZEPAM 0.5 MG TAB PO PRN (20:15)
[2016-05-15] MEDS: METOPROLOL SUCC 50MG EXT REL TAB PO SCH (20:16)
[2016-05-15] MEDS: HEPARIN SOD 5000 UNIT/0.5 ML CARP SQ SCH (20:18)
[2016-05-15] MEDS ORDERED: SULFAMETHOXAZOLE/TRIMETHOPRIM DS 800/160MG TAB PO SCH (21:00)
[2016-05-15 23:27] VITALS: BP 121/67; PULSE 64; TEMP 36.8; O2SAT 94
[2016-05-16] MEDS: SODIUM CHLORIDE 0.9% 1000ML 1,000 ML IV SCH ×2 (03:55→16:17)
[2016-05-16 07:17] LABS: HEMATOCRIT 36.7 % (37-47); MEAN CORPUSCULAR HEMOGLOBIN 28.9 pg (25-34); MEAN CORPUSCULAR HGB CONC 33.2 g/dl (32-36); MEAN PLATELET VOLUME 11.7 fL (7.4-10.4); PLATELET COUNT 199 K/uL (130-400); RED BLOOD COUNT 4.22 M/uL (4.2-5.4); WHITE BLOOD COUNT 8.56 K/uL (4.8-10.8)
[2016-05-16 07:47] VITALS: BP 121/76; PULSE 124; TEMP 37.7; O2SAT 90
[2016-05-16 07:53] LABS: BUN/CREATININE RATIO 16.2 (10-20); CALCIUM 8.5 mg/dl (8.5-10.1); CREATININE 1.2 mg/dl (0.60-1.20); POTASSIUM 3.8 mmol/L (3.5-5.1)
[2016-05-16] MEDS: ATORVASTATIN 10 MG TAB PO SCH ×3 (07:55→20:21)
[2016-05-16] MEDS: AMLODIPINE BESYLATE 5 MG TAB PO SCH ×3 (07:56→16:17)
[2016-05-16] MEDS: ASPIRIN 81 MG ECTAB PO SCH (07:56)
[2016-05-16] MEDS: CLONIDINE HCL 0.1 MG TAB PO SCH ×3 (07:58→20:21)
[2016-05-16] MEDS: CEROVITE ADV FORMULA TAB PO SCH (07:58)
[2016-05-16] MEDS: METOPROLOL SUCC 50MG EXT REL TAB PO SCH ×2 (07:59→20:22)
[2016-05-16] MEDS: PANTOprazole SOD 40 MG TAB PO SCH (08:00)
[2016-05-16] MEDS: HEPARIN SOD 5000 UNIT/0.5 ML CARP SQ SCH ×2 (08:02→09:00)
[2016-05-16] MEDS: LORAZEPAM 0.5 MG TAB PO PRN ×3 (08:21→22:59)
[2016-05-16] MEDS ORDERED: SPIRONOLACTONE 25 MG TAB PO SCH (09:00)
[2016-05-16] MEDS ORDERED: NURSING VERBAL MED ORDER ONE (09:30)
[2016-05-16] MEDS ORDERED: ENOXAPARIN 40 MG/0.4 ML SYR SQ ONE (11:00)
--- NOTE | 2016-05-16 11:36 | Hospitalist Progress Note ---
Hospitalist Progress Note Date of Service May 16, 2016. Subjective Pt evaluation today including: conversation w/ patient, conversation w/ family , physical exam, chart review, lab review, review of inpatient medication list Pt has c/o proximal thigh pain, otherwise denies any problems. She cannot recall what happened as far as her fall or being on the floor prior to admission. CK and troponin elevated this AM. Family reports she has had multiple falls over the last year, once required praveen to the posterior head. Constitutional: No fever Cardiovascular: No chest pain Abdomen: No nausea, No pain Musculoskeletal: + muscle pain (thighs) Neurologic: + balance problems (multiple falls), + memory loss, + weakness Skin: No rash All Other Systems: Reviewed and Negative Objective Vital Signs Date Time Temp Pulse Resp B/P Pulse Ox O2 Delivery O2 Flow Rate FiO2 05/16/16 07:47 37.7 124 20 121/76 90 Room Air 05/16/16 00:00 Room Air 05/15/16 23:27 36.8 64 18 121/67 94 Room Air 05/15/16 20:13 36.8 72 20 139/72 93 Room Air 05/15/16 20:00 Room Air 05/15/16 18:16 37.3 77 20 156/69 94 Room Air 05/15/16 16:45 37.3 77 20 156/69 96 Room Air 05/15/16 16:45 64 16 104/64 94 05/15/16 14:00 64 16 122/66 94 05/15/16 12:13 71 Physical Exam General Appearance: no apparent distress, + thin Eyes: normal inspection, sclerae normal Neck: trachea midline Respiratory/Chest: lungs clear, normal breath sounds, no respiratory distress, no accessory muscle use Cardiovascular: no edema, no gallop, no murmur, + irregularly irregular Abdomen: normal bowel sounds, non tender, soft Extremities: non-tender (no ttp over prox thighs but is +TTP over left greater trochanter), normal inspection, no pedal edema, no calf tenderness Neurologic/Psychiatric: alert, oriented x 3, + pertinent finding (masked facies , +cogwheel rigidity arms and legs, gait not tested) Skin: normal color, warm/dry, no rash Laboratory Results Last 24 Hours Test 05/15/16 12:00 05/15/16 14:25 05/16/16 06:45 White Blood Count 8.73 K/uL 8.56 K/uL Red Blood Count 4.48 M/uL 4.22 M/uL Hemoglobin 13.3 g/dL 12.2 g/dL Hematocrit 38.9 % 36.7 % Mean Corpuscular Volume 86.8 fL 87.0 fL Mean Corpuscular Hemoglobin 29.7 pg 28.9 pg Mean Corpuscular Hemoglobin Concent 34.2 g/dl 33.2 g/dl Platelet Count 214 K/uL 199 K/uL Mean Platelet Volume 11.1 fL 11.7 fL Neutrophils (%) (Auto) 86.7 % Lymphocytes (%) (Auto) 8.0 % Monocytes (%) (Auto) 5.0 % Eosinophils (%) (Auto) 0.0 % Basophils (%) (Auto) 0.1 % Neutrophils # (Auto) 7.56 K/uL Lymphocytes # (Auto) 0.70 K/uL Monocytes # (Auto) 0.44 K/uL Eosinophils # (Auto) 0.00 K/uL Basophils # (Auto) 0.01 K/uL RDW Standard Deviation 41.8 fL 43.4 fL RDW Coefficient of Variation 13.1 % 13.6 % Immature Granulocyte % (Auto) 0.2 % Immature Granulocyte # (Auto) 0.02 K/uL Prothrombin Time 10.7 SECONDS Prothromb Time International Ratio 1.0 Activated Partial Thromboplast Time 25.0 SECONDS Partial Thromboplastin Ratio 1.0 Sodium Level 137 mmol/L 140 mmol/L Potassium Level 3.6 mmol/L 3.8 mmol/L Chloride Level 99 mmol/L 104 mmol/L Carbon Dioxide Level 28 mmol/L 28 mmol/L Anion Gap 10.0 mmol/L 8.0 mmol/L Blood Urea Nitrogen 17 mg/dl 19 mg/dl Creatinine 1.20 mg/dl 1.20 mg/dl Est Creatinine Clear Calc Drug Dose 33.1 ml/min 33.1 ml/min Estimated GFR () 50.5 50.5 Estimated GFR (Non- 43.6 43.6 BUN/Creatinine Ratio 13.8 16.2 Random Glucose 101 mg/dl 86 mg/dl Calcium Level 8.9 mg/dl 8.5 mg/dl Total Bilirubin 0.5 mg/dl Aspartate Amino Transf (AST/SGOT) 26 U/L Alanine Aminotransferase (ALT/SGPT) 31 U/L Alkaline Phosphatase 104 U/L Total Creatine Kinase 349 U/L 1334 U/L Total Protein 7.5 gm/dl Albumin 3.7 gm/dl Globulin 3.8 gm/dl Albumin/Globulin Ratio 1.0 Urine Color YELLOW Urine Appearance CLOUDY Urine pH 7.0 Urine Specific [place] 1.014 Urine Protein 1+ Urine Glucose (UA) NEG Urine Ketones 1+ Urine Occult Blood 3+ Urine Nitrite NEG Urine Bilirubin NEG Urine Urobilinogen NEG Urine Leukocyte Esterase TRACE Urine WBC (Auto) 1-5 /hpf Urine RBC (Auto) >30 /hpf Urine Hyaline Casts (Auto) 0 /lpf Urine Epithelial Cells (Auto) 5-10 /lpf Urine Bacteria (Auto) NEG Troponin I 0.279 ng/ml Assessment and Plan 75 y/o female, with PMHx of Parkinson's disease, HTN, HL, CAD, paroxysmal a.fib , s/p pacemaker implant, chronic LBBB, osteoporosis, and GERD, who presented to the ED because of a fall occurring the night of 05/14-05/15, with family wanting placement. Parkinson's disease, multiple falls, ambulatory dysfunction, rhabdomyolysis CK 1100 s/p fall mechanical vs syncope, no recollection of event. CT head/Neck, CXR, Hip /pelvis xrays all neg for acute process - Admit med/surg w/ fall precautions - IV NSS @ 80 ml/hr - Consult PT/OT - U/A dirty, pending urine culture - PRP and CPK tomorrow AM HTN, CAD, elevated troponin suspect demand ischemia, Chronic LBBB, h/o pacer, PAF, HL--> asymptomatic but may have had syncope causing fall. Pacer interrogated in ER and A-fib. Not on anticoagulation presumably for high fall risk. 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 Bai for further eval DVT prophylaxis: Lovenox-she is agreeable to this. refusing TEDs and SCDs Code Status: LEVEL I, FULL Dispo: From home, lives alone- family states patient is not safe to live at home , wants placement and I am in full agreement- social media marketing manager consulted for SNF or rehab placement
[2016-05-16 14:02] LABS: CKMB/CK RATIO 0.3 (0-3.0)
--- NOTE | 2016-05-16 14:10 | ECHOCARDIOGRAM REPORT ---
*NOTICE TO RECEIVING CONSTITUTION PARTY AGENCY This information is strictly Confidential and protected under [place] law. [place] law prohibits you from making any further disclosure of this information unless further disclosure is expressly permitted by the written consent of the person to whom it pertains or is authorized by law. A general authorization for the release of medical or other information is not sufficient for this purpose. Hospital accepts no responsibility if the information is made available to any other person, INCLUDING THE PATIENT. Interpretation Summary * Name: CLARITA HUERTA Study Date: 05/16/2016 02:16 PM BP: 121/76 mmHg * Patient Location: .MS2W\S\W255\S\2 HR: 124 * : 1940 (M/d/yyyy) Gender: Female Height: 64 in * Age: 75 yrs Ethnicity: CA Weight: 117 lb * Ordering Physician: Edie Haider * Performed By: Sarah Harrison * * Reason For Study: SYNCOPE * BSA: 1.6 m2 * -- Conclusions -- * Left ventricular systolic function is normal. * No regional wall motion abnormalities noted. * Ejection Fraction = 55-60%. * There is mild concentric left ventricular hypertrophy. * Aortic valve sclerosis mild, without significant aortic valvular stenosis. * There is mild mitral regurgitation. Procedure Details * A complete two-dimensional transthoracic echocardiogram was performed (2D, M-mode, Doppler and color flow Doppler). Left Ventricle * The left ventricle is normal in size. * There is mild concentric left ventricular hypertrophy. * Ejection Fraction = 55-60%. * Left ventricular systolic function is normal. * No regional wall motion abnormalities noted. Right Ventricle * The right ventricle is normal size. * The right ventricular systolic function is normal as assessed by tricuspid annular plane systolic excursion (TAPSE) (normal >1.5 cm). Atria * Borderline left atrial enlargement. * Right atrium not well visualized. * No ASD detected; PFO is not assessed. Mitral Valve * The mitral valve is grossly normal. * There is no mitral valve stenosis. * There is mild mitral regurgitation. Tricuspid Valve * The tricuspid valve is not well visualized. * There is no tricuspid stenosis. * Significant tricuspid regurgitation is absent. Aortic Valve * The aortic valve is tricuspid. The leaflet thickness if normal. There is no aortic stenosis, and no significant insufficiency. * Aortic valve sclerosis mild, without significant aortic valvular stenosis. * There is no significant aortic regurgitation. Pulmonic Valve * The pulmonic valve is not well visualized. Great Vessels * The aortic root is normal size. * The pulmonary is not well visualized. Pericardium/Pleural * There is no pericardial effusion. Great Vessels * IVC not well seen. MMode 2D Measurements and Calculations IVSd 1.6 cm IVSs 1.9 cm LVIDd 3.5 cm LVIDs 2.5 cm LVPWd 1.0 cm LVPWs 2.1 cm IVS/LVPW 1.5 FS 29.1 % EDV(Teich) 52.5 ml ESV(Teich) 22.7 ml EF(Teich) 56.8 % EDV(cubed) 44.6 ml ESV(cubed) 15.9 ml EF(cubed) 64.3 % % IVS thick 20.1 % % LVPW thick 104.8 % LV mass(C)d 158.6 grams LV mass(C)dI 101.8 grams/m\S\2 LV mass(C)s 220.7 grams LV mass(C)sI 141.7 grams/m\S\2 SV(Teich) 29.8 ml SI(Teich) 19.2 ml/m\S\2 SV(cubed) 28.7 ml SI(cubed) 18.4 ml/m\S\2 ACS 1.5 cm LA dimension 2.8 cm asc Aorta Diam 3.3 cm LVOT diam 1.9 cm LVOT area 2.9 cm\S\2 LVAd ap4 23.5 cm\S\2 LVLd ap4 6.3 cm EDV(MOD-sp4) 71.9 ml EDV(sp4-el) 74.5 ml LVAs ap4 15.0 cm\S\2 LVLs ap4 5.8 cm ESV(MOD-sp4) 32.1 ml ESV(sp4-el) 32.9 ml EF(MOD-sp4) 55.4 % EF(sp4-el) 55.8 % LVAd ap2 21.6 cm\S\2 LVLd ap2 6.2 cm EDV(MOD-sp2) 60.5 ml EDV(sp2-el) 64.0 ml LVAs ap2 12.8 cm\S\2 LVLs ap2 5.3 cm ESV(MOD-sp2) 26.2 ml ESV(sp2-el) 26.0 ml EF(MOD-sp2) 56.7 % EF(sp2-el) 59.4 % LVLd %diff -2.15 % EDV(MOD-bp) 66.4 ml LVLs %diff -9.07 % ESV(MOD-bp) 30.3 ml EF(MOD-bp) 54.4 % SV(MOD-sp4) 39.8 ml SI(MOD-sp4) 25.6 ml/m\S\2 SV(MOD-sp2) 34.3 ml SI(MOD-sp2) 22.0 ml/m\S\2 SV(MOD-bp) 36.1 ml SI(MOD-bp) 23.2 ml/m\S\2 SV(sp4-el) 41.6 ml SI(sp4-el) 26.7 ml/m\S\2 SV(sp2-el) 38.0 ml SI(sp2-el) 24.4 ml/m\S\2 Doppler Measurements and Calculations MV E max annemarie 92.7 cm/sec MV dec time 0.18 sec Ao V2 max 136.1 cm/sec Ao max PG 7.4 mmHg Ao max PG (full) 4.3 mmHg JAME(V,A) 1.9 cm\S\2 JAME(V,D) 1.9 cm\S\2 LV V1 max PG 3.1 mmHg LV V1 mean PG 1.3 mmHg LV V1 max 88.6 cm/sec LV V1 mean 49.4 cm/sec LV V1 VTI 16.0 cm MR max annemarie 211.2 cm/sec MR max PG 17.8 mmHg SV(LVOT) 45.7 ml SI(LVOT) 29.3 ml/m\S\2 PA V2 max 100.0 cm/sec PA max PG 4.1 mmHg TR max annemarie 260.7 cm/sec
[2016-05-16 15:23] VITALS: BP 165/69; PULSE 108; TEMP 37.6; O2SAT 94
[2016-05-16] MEDS: CEFTRIAXONE SOD INJ 1 GM in DEXTROSE 5% ADD-VANTAGE 50ML 50 ML IV SCH (16:15)
[2016-05-16 20:19] VITALS: BP 155/65; PULSE 115
--- NOTE | 2016-05-16 22:56 | CARDIOLOGY CONSULTATION ---
DATE OF CONSULTATION: 05/16/2016 PERTINENT HISTORY: Mrs. Manzo is a 75-year-old white female, admitted yesterday after an apparent fall. This consultation was ordered to assist in her cardiac management. The patient was in her usual state of health until the evening of May 14. She apparently fell to the floor as it was just getting dark. She was found by her son the following morning at approximately 9:30 a.m. She was brought to the Emergency Room for further care. Her pacemaker was interrogated while in the Emergency Room and it noted appropriate pacing and occasional paroxysms of atrial fibrillation. The patient does not experience any recent chest discomfort or dyspnea. She further denies syncope, presyncope, PND, orthopnea, lower extremity edema, and claudication. The patient does carry a history of coronary artery disease and apparently suffered an AL in the remote past. No wall motion abnormalities have been identified on echocardiograms or Persantine stress tests previously. The patient also carries a history of tachycardia/bradycardia syndrome. She had a permanent pacemaker placed in 2009. She has not been on long-term anticoagulation therapy due to her high risk and frequent falls. Currently, the patient is resting comfortably in the bedside chair without complaints. Her family is at the bedside. PAST MEDICAL HISTORY: 1. Possible coronary artery disease -- possible remote AL. 2. Hypertension. 3. Hypercholesterolemia. 4. Tachycardia/bradycardia syndrome. 5. Paroxysmal atrial fibrillation. 6. DDD pacemaker -- 2009. 7. Symptomatic PVCs. 8. Parkinson disease. 9. Dementia. 10. GERD. 11. Left partial nephrectomy -- renal cell carcinoma. 12. Right ovarian mass -- stable. 13. History of bronchiectasis. 14. History of multinodular goiter. 15. Peripheral vascular disease. MEDICATIONS: 1. Toprol-XL 100 mg b.i.d. 2. Norvasc 2.5 mg daily. 3. Aspirin 162 mg daily. 4. Lipitor 10 mg at bedtime. 5. Lovenox 40 mg subQ daily. 6. Clonidine 0.1 mg b.i.d. 7. Protonix 40 mg daily. 8. Ceftriaxone 1 g IV daily. 9. Clonidine 0.2 mg at bedtime. 10. Multivitamin daily. ALLERGIES: 1. PENICILLIN. 2. CIPROFLOXACIN. SOCIAL HISTORY: The patient is a and lives alone. She is a retired nurse. Remote history of tobacco use. Does not use alcohol. FAMILY HISTORY: Noncontributory. REVIEW OF SYSTEMS: A 10-point review of systems is negative except for that described above. PHYSICAL EXAMINATION: GENERAL: This is a thin elderly white female, seated in the bedside chair without complaints. VITAL SIGNS: Blood pressure is 120/76 with a regular pulse of 64. Respiratory rate is 20 and the patient is afebrile at 36.8 degrees Celsius. Saturation is 90% on room air. HEENT: Negative. NECK: Supple with full carotid upstrokes. There are no carotid bruits. Jugular venous pressure is flat at 90 degrees. There is no thyromegaly. CARDIOVASCULAR: Reveals irregular rhythm with normal S1 and fixed split S2. No obvious murmurs. CHEST: Reveals a palpable pacemaker in the left subclavicular region. LUNGS: Clear without rales, rhonchi, or wheeze. ABDOMEN: Soft without bruits. EXTREMITIES: Reveal intact radial artery pulses bilaterally. There is no peripheral edema. LABORATORY DATA: CBC notes hemoglobin 12.2, hematocrit 36.7, white count 8.5, platelet count 199,000. Electrolytes note a sodium of 140, potassium 3.8, chloride 104, bicarb 28, BUN 19, creatinine 1.2, glucose 86. Troponin I level is mildly elevated at 0.279. Initial CK was 349 with followup value of 1334. EKG notes atrial pacing with left bundle branch block and a left axis deviation. Chest x-ray shows no acute disease. IMPRESSION: Mrs. Manzo was admitted after a fall and a prolonged period of time on the floor. Pacemaker interrogation noted only paroxysmal atrial fibrillation. The patient has had no cardiac symptoms and simply suffered a mechanical fall. She has had no recent exertional angina pectoris. PLAN: 1. Continue usual outpatient cardiac medications. 2. Await echocardiogram. 3. Further recommendation depending on her clinical course.
[2016-05-17] VITALS: O2SAT 94
[2016-05-17 00:15] VITALS: BP 132/73; PULSE 79; TEMP 36.5; O2SAT 94
[2016-05-17] MEDS: SODIUM CHLORIDE 0.9% 1000ML 1,000 ML IV SCH ×2 (03:50→16:28)
[2016-05-17 07:27] LABS: HEMATOCRIT 36.9 % (37-47); MEAN CELL VOLUME 87.9 fL (80-100); MEAN CORPUSCULAR HEMOGLOBIN 29.5 pg (25-34); MEAN CORPUSCULAR HGB CONC 33.6 g/dl (32-36); MEAN PLATELET VOLUME 10.9 fL (7.4-10.4); PLATELET COUNT 182 K/uL (130-400); WHITE BLOOD COUNT 7.33 K/uL (4.8-10.8)
[2016-05-17 07:55] LABS: BUN/CREATININE RATIO 17.3 (10-20); CREATININE 1.1 mg/dl (0.60-1.20); POTASSIUM 3.7 mmol/L (3.5-5.1)
[2016-05-17 08:00] VITALS: BP 143/83; PULSE 93; TEMP 37.8; O2SAT 90
[2016-05-17] MEDS ORDERED: ENOXAPARIN 40 MG/0.4 ML SYR SQ SCH (09:00)
[2016-05-17] MEDS: ENOXAPARIN 30 MG/0.3 ML SYR SQ SCH ×2 (09:00→09:11)
[2016-05-17] MEDS: ASPIRIN 81 MG ECTAB PO SCH (09:11)
[2016-05-17] MEDS: CEROVITE ADV FORMULA TAB PO SCH (09:11)
[2016-05-17] MEDS: CLONIDINE HCL 0.1 MG TAB PO SCH ×3 (09:12→20:16)
[2016-05-17] MEDS: METOPROLOL SUCC 50MG EXT REL TAB PO SCH ×2 (09:12→20:16)
[2016-05-17] MEDS: PANTOprazole SOD 40 MG TAB PO SCH (09:12)
--- NOTE | 2016-05-17 11:53 | CARDIOLOGY PROGRESS NOTE ---
DATE: 05/17/2016 SUBJECTIVE: Mrs. Manzo is resting comfortably at the bedside without complaints of chest pain, dyspnea, or palpitations. OBJECTIVE: VITAL SIGNS: Blood pressure is 140/83 with an irregular pulse of 80. Respiratory rate is 18. The patient is afebrile at 36.5 degrees Celsius. Saturation is 94% on room air. NECK: Supple with full carotid upstrokes. There are no carotid bruits. Jugular venous pressure is flat at 90 degrees. There is no thyromegaly. CARDIOVASCULAR: Reveals a regular rhythm with distant heart sounds. S1 is normal with a fixed split S2. No obvious murmurs. CHEST: Reveals palpable pacemaker in the left subclavicular region. LUNGS: Clear without rales, rhonchi, or wheezes. ABDOMEN: Soft without bruits. EXTREMITIES: Reveal intact radial artery pulses bilaterally. There is no peripheral edema. DATA: CBC notes hemoglobin of 12.4, hematocrit 36.9, white count 7.3, platelet count 82,000. Electrolytes note a sodium of 140, potassium 3.7, chloride 105, bicarb 25, BUN 19, creatinine 1.1, glucose 85. Troponin I level down to 0.215. CK peaked at 1355. Echocardiogram noted normal left ventricular systolic function with an ejection fraction of 65%. There is mild left ventricular hypertrophy and mild mitral regurgitation. IMPRESSION AND PLAN: 1. Status post mechanical fall -- with mild rhabdomyolysis. 2. Increased troponin -- likely secondary to her left ventricular hypertrophy with resultant demand ischemia. Minor elevation is trending down. No further evaluation necessary except to continue her beta live, calcium channel live. 3. Possible coronary artery disease -- quiescent. 4. Hypertension -- controlled. 5. Hypercholesterolemia. 6. Tachycardia/bradycardia syndrome -- status post DDD pacemaker in 2009. 7. Paroxysmal atrial fibrillation, no long-term anticoagulants due to her high risk of falling. 8. Parkinson disease.
[2016-05-17 15:33] VITALS: BP 170/75; PULSE 86; TEMP 37.3; O2SAT 90
[2016-05-17] MEDS ORDERED: AMLODIPINE BESYLATE 5 MG TAB PO SCH (16:00)
[2016-05-17 16:10] VITALS: O2SAT 90
[2016-05-17] MEDS: CEFTRIAXONE SOD INJ 1 GM in DEXTROSE 5% ADD-VANTAGE 50ML 50 ML IV SCH (16:26)
[2016-05-17] MEDS: LORAZEPAM 0.5 MG TAB PO PRN ×2 (16:33→22:49)
--- NOTE | 2016-05-17 19:29 | Hospitalist Progress Note ---
Hospitalist Progress Note Date of Service May 17, 2016. Subjective Pt evaluation today including: conversation w/ patient, physical exam, lab review, review of studies, conversation w/ new home sales consultant (Cardiology), review of inpatient medication list Pt has no complaints today. Denies CP or SOB, no more pain in legs or hips. Is rishi po, making urine. All Other Systems: Reviewed and Negative Objective Vital Signs Date Time Temp Pulse Resp B/P Pulse Ox O2 Delivery O2 Flow Rate FiO2 05/17/16 15:33 37.3 86 18 170/75 90 Room Air 05/17/16 08:00 37.8 93 18 143/83 90 Room Air 05/17/16 08:00 90 Room Air 05/17/16 00:15 36.5 79 18 132/73 94 Room Air 05/17/16 00:00 94 Room Air 05/16/16 20:19 115 155/65 05/16/16 20:00 Room Air Physical Exam General Appearance: no apparent distress, + thin Eyes: normal inspection, sclerae normal ENT: hearing grossly normal Neck: trachea midline Respiratory/Chest: lungs clear, normal breath sounds, no respiratory distress, no accessory muscle use Cardiovascular: no edema, no murmur, + irregularly irregular Abdomen: normal bowel sounds, non tender, soft Extremities: normal inspection, no calf tenderness Neurologic/Psychiatric: alert, normal mood/affect, + pertinent finding (masked facies, +cogwheel rigidity arms and legs, gait not tested)) Skin: normal color, warm/dry, no rash Laboratory Results Last 24 Hours Test 05/17/16 07:05 White Blood Count 7.33 K/uL Red Blood Count 4.20 M/uL Hemoglobin 12.4 g/dL Hematocrit 36.9 % Mean Corpuscular Volume 87.9 fL Mean Corpuscular Hemoglobin 29.5 pg Mean Corpuscular Hemoglobin Concent 33.6 g/dl RDW Standard Deviation 45.0 fL RDW Coefficient of Variation 13.9 % Platelet Count 182 K/uL Mean Platelet Volume 10.9 fL Sodium Level 140 mmol/L Potassium Level 3.7 mmol/L Chloride Level 105 mmol/L Carbon Dioxide Level 25 mmol/L Anion Gap 10.0 mmol/L Blood Urea Nitrogen 19 mg/dl Creatinine 1.10 mg/dl Est Creatinine Clear Calc Drug Dose 36.1 ml/min Estimated GFR () 56.1 Estimated GFR (Non- 48.4 BUN/Creatinine Ratio 17.3 Random Glucose 85 mg/dl Calcium Level 8.0 mg/dl Total Creatine Kinase 1043 U/L Assessment and Plan 75 y/o female, with PMHx of Parkinson's disease, HTN, HL, CAD, paroxysmal a.fib , s/p pacemaker implant, chronic LBBB, osteoporosis, and GERD, who presented to the ED because of a fall occurring the night of 05/14-05/15, with family wanting placement. Parkinson's disease, multiple falls, ambulatory dysfunction, rhabdomyolysis CK 1355--> 1043 s/p fall mechanical vs syncope, no recollection of event, was down on the ground potentialy for all night. CT head/Neck, CXR, Hip/pelvis xrays all neg for acute process Interrogation of pacer shows A-fib but no other significant events that could cause syncope. Has had multiple falls over the last year, once requiring praveen to the scalp. Lives alone. - IV NSS @ 80 ml/hr given x 2 days for rhabdo, now stop - Consult PT/OT - U/A dirty, urine culture mixed organisms--> stop Rocephin - PRP and CPK tomorrow AM -plan for [facility] and then transition to AL there HTN, CAD, elevated troponin suspect demand ischemia, Chronic LBBB, h/o pacer, PAF, HL--> asymptomatic but may have had syncope causing fall. Pacer interrogated in ER and A-fib. Not on anticoagulation presumably for high fall risk. Trop trended downward slightly and stable at 0.21 ECHO with mild MR, EF 55-60%, mild LVH, no wall motion abnormalities -Consult to Cardiology appreciated--> no further eval needed - Continue Norvasc 2.5 mg, Clonidine, metoprolol - Continue Atorvastatin 10 mg -continue ASA GERD: Continue Protonix daily Osteoporosis- Vit D 47 on 12/2015 -continue MVI H/o left partial nephrectomy for RCC, Chronic right mild-mod hydronephrosis, Nephrolithiasis- seen on recent CT scan as outpt -stable, follows with Urology routinely Pancreatic cyst/Sidebranch IPMN 7 mm-stable on recent CT Right ovarian solid mass 4.1 cm -stable from previous -is routinely followed by [facility] as per patient Bronchiectasis in RML, lingula on recent CT abd/pel-pt does report today she has been coughing lately -has outpt Pulm appt scheduled with Dr. Bai for further eval -could be from chronic aspiration given Parkinson's -Speech Tx consult and may need Video Swallow DVT prophylaxis: Lovenox Code Status: LEVEL I, FULL Dispo: From home, lives alone- family states patient is not safe to live at home , wants placement and I am in full agreement- social media content manager consulted for SNF or rehab placement
[2016-05-17] MEDS: ATORVASTATIN 10 MG TAB PO SCH (20:16)
[2016-05-18 00:38] VITALS: BP 110/70; PULSE 91; TEMP 37; O2SAT 94
[2016-05-18 06:41] LABS: HEMATOCRIT 36.4 % (37-47); MEAN CELL VOLUME 87.5 fL (80-100); MEAN CORPUSCULAR HEMOGLOBIN 28.6 pg (25-34); MEAN CORPUSCULAR HGB CONC 32.7 g/dl (32-36); PLATELET COUNT 170 K/uL (130-400); RED BLOOD COUNT 4.16 M/uL (4.2-5.4); WHITE BLOOD COUNT 4.76 K/uL (4.8-10.8)
[2016-05-18 07:16] LABS: BUN/CREATININE RATIO 16.6 (10-20); CALCIUM 7.8 mg/dl (8.5-10.1); CREATININE 0.97 mg/dl (0.60-1.20); POTASSIUM 3.7 mmol/L (3.5-5.1)
[2016-05-18 07:52] VITALS: BP 158/74; PULSE 94; TEMP 37.1; O2SAT 93
[2016-05-18] MEDS: ASPIRIN 81 MG ECTAB PO SCH (08:04)
[2016-05-18] MEDS: PANTOprazole SOD 40 MG TAB PO SCH (08:04)
[2016-05-18] MEDS: CLONIDINE HCL 0.1 MG TAB PO SCH (08:05)
[2016-05-18] MEDS: METOPROLOL SUCC 50MG EXT REL TAB PO SCH (08:05)
[2016-05-18] MEDS: ENOXAPARIN 30 MG/0.3 ML SYR SQ SCH (08:06)
[2016-05-18] MEDS: CEROVITE ADV FORMULA TAB PO SCH (08:06)
[2016-05-18] MEDS: LORAZEPAM 0.5 MG TAB PO PRN (08:14)
[2016-05-18 10:10] VITALS: O2SAT 93
--- NOTE | 2016-05-18 10:24 | Hospitalist Progress Note ---
Hospitalist Progress Note Date of Service May 18, 2016. Subjective Pt evaluation today including: conversation w/ patient, conversation w/ family , physical exam, chart review, lab review, review of inpatient medication list Voiding: no voiding problems, no incontinence Patient states she is feeling well. +non-productive cough. Patient denies any fever, chills, sweats, lightheadedness, dizziness, vision changes, CP, palpitations, edema, SOB, wheezing, abdominal pain, nausea, vomiting, diarrhea, urinary symptoms, melena, numbness/tingling, weakness, muscle/joint pain, anxiety/depression, active bleeding, or new skin discoloration/changes. Medications Current Inpatient Medications Medications (Trade) Dose Ordered Sig/Oscar Route Start Time Stop Time Status Last Admin Dose Admin Acetaminophen (Tylenol Tab) 650 mg Q4H PRN PO 05/15/16 15:15 06/14/16 15:14 Al Hydrox/Mg Hydrox/Simethicone (Maalox Max Susp) 15 ml Q4H PRN PO 05/15/16 15:15 06/14/16 15:14 Magnesium Hydroxide (Milk Of Magnesia Susp) 30 ml Q6H PRN PO 05/15/16 15:15 06/14/16 15:14 Polyethylene (Miralax Powder Packet) 17 gm DAILY PRN PO 05/15/16 15:15 06/14/16 15:14 Ondansetron HCl (Zofran Inj) 4 mg Q6H PRN IV 05/15/16 15:15 06/14/16 15:14 Aspirin (Ecotrin Tab) 162 mg DAILY PO 05/16/16 09:00 06/15/16 08:59 05/18/16 08:04 162 MG Clonidine HCl (Catapres Tab) 0.1 mg BID@0900,1700 PO 05/15/16 17:00 06/14/16 16:59 05/18/16 08:05 0.1 MG Lorazepam (Ativan Tab) 0.5 mg TID PRN PO 05/15/16 15:15 06/14/16 15:14 05/18/16 08:14 0.5 MG Metoprolol Tartrate (Lopressor Tab) 50 mg DAILY PRN PO 05/15/16 15:15 06/14/16 15:14 Multivitamins/ Minerals (Multivitamin W/ Minerals Tab) 1 tab DAILY PO 05/16/16 09:00 06/15/16 08:59 05/18/16 08:06 1 TAB Pantoprazole Sodium (Protonix Tab) 40 mg DAILY PO 05/16/16 09:00 06/15/16 08:59 05/18/16 08:04 40 MG Clonidine HCl (Catapres Tab) 0.2 mg HS PO 05/15/16 21:00 06/14/16 20:59 05/17/16 20:16 0.2 MG Metoprolol Succinate (Toprol Xl Tab) 100 mg BID PO 05/15/16 21:00 06/14/16 20:59 05/18/16 08:05 100 MG Atorvastatin Calcium (Lipitor Tab) 10 mg HS PO 05/16/16 21:00 06/15/16 20:59 05/17/16 20:16 10 MG Enoxaparin Sodium (Lovenox Inj) 30 mg DAILY SQ 05/17/16 09:00 06/16/16 08:59 Amlodipine Besylate (Norvasc Tab) 2.5 mg DAILY@1600 PO 05/17/16 16:00 06/16/16 15:59 05/17/16 16:26 2.5 MG Objective Vital Signs Date Time Temp Pulse Resp B/P Pulse Ox O2 Delivery O2 Flow Rate FiO2 05/18/16 10:10 93 Nasal Cannula 2.0 05/18/16 07:52 37.1 94 19 158/74 93 Nasal Cannula 2.0 05/18/16 07:45 Room Air 05/18/16 00:38 37.0 91 18 110/70 94 2.0 05/18/16 00:20 Nasal Cannula 2.0 05/18/16 00:05 Room Air 05/17/16 16:10 90 Room Air 05/17/16 15:33 37.3 86 18 170/75 90 Room Air Physical Exam General Appearance: no apparent distress, + thin Eyes: normal inspection, PERRL ENT: hearing grossly normal Neck: supple Respiratory/Chest: lungs clear, no respiratory distress, no accessory muscle use Cardiovascular: + irregularly irregular Abdomen: normal bowel sounds, non tender, soft Extremities: no pedal edema, no calf tenderness Neurologic/Psychiatric: alert, oriented x 3, + pertinent finding (+tremor ) Skin: normal color, warm/dry, no rash Laboratory Results Last 24 Hours Test 05/18/16 06:31 White Blood Count 4.76 K/uL Red Blood Count 4.16 M/uL Hemoglobin 11.9 g/dL Hematocrit 36.4 % Mean Corpuscular Volume 87.5 fL Mean Corpuscular Hemoglobin 28.6 pg Mean Corpuscular Hemoglobin Concent 32.7 g/dl RDW Standard Deviation 44.5 fL RDW Coefficient of Variation 13.8 % Platelet Count 170 K/uL Mean Platelet Volume 11.0 fL Sodium Level 140 mmol/L Potassium Level 3.7 mmol/L Chloride Level 104 mmol/L Carbon Dioxide Level 27 mmol/L Anion Gap 9.0 mmol/L Blood Urea Nitrogen 16 mg/dl Creatinine 0.97 mg/dl Est Creatinine Clear Calc Drug Dose 40.9 ml/min Estimated GFR () 65.3 Estimated GFR (Non- 56.3 BUN/Creatinine Ratio 16.6 Random Glucose 82 mg/dl Calcium Level 7.8 mg/dl Total Creatine Kinase 572 U/L Assessment and Plan 75 y/o female, with PMHx of Parkinson disease, HTN, HDL, CAD, paroxysmal a.fib, s/p pacemaker implant, and GERD, who presented to the ED because of a fall occurring the night of 05/14-05/15, with family wanting placement. s/p fall, with mild rhabdo, improving: - Admit med/surg w/ fall precautions - CT head/Neck, CXR, Hip/pelvis x-rays all neg for acute process - Interrogation of pacer shows a-fib but no other significant events that could cause syncope - Treat with IV NSS @ 80 ml/hr - Consult PT/OT - U/A dirty, urine culture with +3 organisms--> Rocephin IV x1 dose - PRP and CPK followed HTN: Continue Norvasc 2.5 mg, Clonidine 1 mg BID HDL: Continue Atorvastatin 10 mg A.fib/CAD: - Continue Metoprolol 100 mg BID and 50 mg PRN - Continue ASA 81 mg - ECHO with mild MR, EF 55-60%, mild LVH, no wall motion abnormalities - Consulted cardiology due to mild elevation in troponin, like secondary to demand ischemia GERD: Continue Protonix daily Osteoporosis- Vit D 47 on 12/2015: Continue MVI H/o left partial nephrectomy for RCC, Chronic right mild-mod hydronephrosis, Nephrolithiasis- seen on recent CT scan as outpt - Stable, follows with Urology routinely Pancreatic cyst/Sidebranch IPMN 7 mm-stable on recent CT Right ovarian solid mass 4.1 cm -stable from previous: - Routinely followed by [facility] as per patient Bronchiectasis in RML, lingula on recent CT abd/pel-pt does report today she has been coughing lately: - Has outpt Pulm appt scheduled with Dr. Bai for further eval - Could be from chronic aspiration given Parkinson's - Speech therapy consult, ??may need video swallow GI Prophylaxis: Maalox PRN, IV Zofran PRN, Colace and/or Milk of Mag PRN DVT prophylaxis: Heparin 5000 units SQ q12 hrs, ANETTE and SCDs Code Status: LEVEL I, FULL Dispo: Waiting placement at ?[facility]
--- NOTE | 2016-05-18 10:45 | Clinical Documentation Query ---
CLINICAL DOCUMENTATION QUERY Dr. KIM, In your clinical opinion is this patient being managed for: ( x ) Traumatic rhabdomyolysis , POA ( ) Traumatic rhabdomyolysis , not POA ( ) Other explanation of clinical findings (Please Explain) ( ) Unable to determine (Please Define) ( ) Need to Discuss ( ) Not Agree The medical record reflects the following clinical findings, treatment, and risk factors. Clinical Indicators: 75 yo female presented after a fall. Reportedly spent unknown period of time, perhaps overnight, on the floor. Serial CK's CK 349/1334/1355/1043. Rhabdomyolysis not originally documented in the H/P. Treatment: IV fluids, serial CPK's, PT/OT Risk Factors: fall with unknown period of time on floor Please clarify and document your clinical opinion in the progress notes and discharge summary. Terms such as "probable", "suspected", "likely", "questionable", "possible", or "still to be ruled out" are acceptable. IF IN AGREEMENT, YOU MUST DOCUMENT ABOVE DIAGNOSTIC STATEMENT IN DAILY PROGRESS NOTES AND DISCHARGE SUMMARY. This document is not part of the patient's record. Thank You, Noemi Ackerman RN [phone]
--- NOTE | 2016-05-18 11:46 | Discharge Instructions ---
Discharge Instructions Date of Service May 18, 2016. Admission Reason for Admission: FALL Discharge Discharge Diagnosis / Problem: Fall Discharge Goals Goal(s): Decrease discomfort, Improve function, Increase independence, Therapeutic intervention, Prevent Disease Progression Activity Recommendations Activity Limitations: resume your previous activity . Instructions / Follow-Up Instructions / Follow-Up Resume all home medications as prescribed Please follow-up with [facility] provider within 24-48 hrs Please follow-up/keep all of your subspecialty appointments Speech therapy recommendations: 1. Regular diet 2. Aspiration precautions, straws OK. Fully upright for meals and for 30-60 minutes after meal is completed 3. Pills crushed or whole in a carrier such as applesauce or pudding. Current Hospital Diet Patient's current hospital diet: AHA Diet (Heart Healthy) Discharge Diet Recommended Diet: AHA Diet (Heart Healthy) Procedures Procedures Performed: 1. CXR 2. Cervical spine CT 3. Head CT 4. Hip/pelvic x-ray 5. Echocardiogram 6. Pacemaker interrogation Pending Studies Studies pending at discharge: no Laboratory Results Last 24 Hours Test 05/18/16 06:31 White Blood Count 4.76 K/uL Red Blood Count 4.16 M/uL Hemoglobin 11.9 g/dL Hematocrit 36.4 % Mean Corpuscular Volume 87.5 fL Mean Corpuscular Hemoglobin 28.6 pg Mean Corpuscular Hemoglobin Concent 32.7 g/dl RDW Standard Deviation 44.5 fL RDW Coefficient of Variation 13.8 % Platelet Count 170 K/uL Mean Platelet Volume 11.0 fL Sodium Level 140 mmol/L Potassium Level 3.7 mmol/L Chloride Level 104 mmol/L Carbon Dioxide Level 27 mmol/L Anion Gap 9.0 mmol/L Blood Urea Nitrogen 16 mg/dl Creatinine 0.97 mg/dl Est Creatinine Clear Calc Drug Dose 40.9 ml/min Estimated GFR () 65.3 Estimated GFR (Non- 56.3 BUN/Creatinine Ratio 16.6 Random Glucose 82 mg/dl Calcium Level 7.8 mg/dl Total Creatine Kinase 572 U/L Medical Emergencies . Who to Call and When: Medical Emergencies: If at any time you feel your situation is an emergency, please call 911 immediately. . Non-Emergent Contact Non-Emergency issues call your: Primary Care Provider Call Non-Emergent contact if: you have a fever, your pain is unusual for you, your pain is concerning you, you have any medication questions . . "Provider Documentation" section prepared by Abi Bowles. VTE Core Measure Inpt VTE Proph given/why not?: Unfractionated heparin TOSHA, T.E.Kirsten. Stockings, SCD 's
--- NOTE | 2016-05-18 11:56 | Discharge Summary ---
Discharge Summary Date of Service May 18, 2016. Discharge Summary Admission Date: May 15, 2016 at 15:09 Discharge Date: May 18, 2016 Discharge Disposition: detention facility Principal Diagnosis: Fall Problems/Secondary Diagnoses: 1. Mild rhabdomyolysis 2. HTN 3. HDL 4. A.fib 5. CAD 6. GERD 7. Osteoporosis 8. H/o left partial nephrectomy for RCC 9. Pancreatic cyst/Side branch IPMN 10. Right ovarian solid mass 11. Bronchiectasis Immunizations: Have You Had Influenza Vaccine: Yes Influenza Vaccine Date: Nov 26, 2008 History of Tetanus Vaccine?: Yes Tetanus Immunization Date: Nov 27, 2007 History of Pneumococcal: Yes Pneumococcal Date: Nov 27, 2007 History of Hepatitis B Vaccine: No Procedures: SINGLE VIEW PELVIS; 2 VIEWS RIGHT HIP CLINICAL HISTORY: Fall with right hip pain. FINDINGS: An AP portable pelvic radiograph with AP and frog-leg portable views of the right hip are correlated with pelvic CT dated 05/11/2016. The skeletal structures are osteopenic. There is no radiographic evidence of fracture in the hips or bony pelvis. Mild arthritic change is seen in both hips. Mild sclerotic change is noted in the sacroiliac joints. There is contour deformity from a healed left pubic ring fracture. The overlying soft tissues are within normal limits. Advanced atherosclerotic calcification is present in the femoral arteries. There is a nonobstructed abdominal bowel gas pattern noting moderate colonic fecal retention. Residual enteric contrast is noted in the rectosigmoid colon. IMPRESSION: 1. No acute bony abnormality is seen in the hips or pelvis. 2. Osteopenia and mild degenerative change as above. 3. Constipation. Electronically signed by: Matt Arteaga M.D. 05/15/2016 2:33 PM Dictated Date/Time: 05/15/2016 2:31 PM The status of this report is Signed. Draft = Not yet reviewed or approved by Radiologist. Signed = Reviewed and approved by Radiologist. CT OF THE HEAD WITHOUT CONTRAST CLINICAL HISTORY: Fall with head injury. COMPARISON STUDY: Head CT February 10, 2015. CT DOSE: 859.24 mGy.cm TECHNIQUE: Helical axial images of the head were obtained without IV contrast. Automated exposure control was utilized for the study. FINDINGS: No acute intracranial hemorrhage, midline shift or mass effect is present. Ventricular system is normal. Basilar cisterns are patent. There are no extra-axial collections. Diaz-white differentiation is preserved. White matter hypodensity suggests small vessel disease. There are no findings to suggest acute dural sinus thrombosis or acute territorial infarct. A subcentimeter hypodensity within the left basal ganglia is unchanged. There is no calvarial fracture. A tiny air-fluid level within the sphenoid sinuses is noted. IMPRESSION: 1. No acute intracranial findings. 2. No calvarial fracture. Electronically signed by: Akil Cervantes M.D. 05/15/2016 1:46 PM Dictated Date/Time: 05/15/2016 1:44 PM The status of this report is Signed. Draft = Not yet reviewed or approved by Radiologist. Signed = Reviewed and approved by Radiologist. CT SCAN OF THE CERVICAL SPINE CLINICAL HISTORY: Trauma. Fall. COMPARISON STUDY: CT scan of cervical spine dated 02/10/2015. TECHNIQUE: CT scan of the cervical spine is performed from the skull base to the upper thoracic spine. Images are reviewed in the axial, sagittal, and coronal planes. IV contrast was not administered for this examination. FINDINGS: Skeletal structures: The skeletal structures are osteopenic. There is no evidence of fracture or subluxation involving the cervical spine. Vertebral body height and alignment are maintained. The odontoid process and lateral masses are intact. The atlantoaxial articulation is preserved noting productive degenerative change. The spinous processes appear intact. There is mild to moderate multilevel cervical spondylosis. Facet arthropathy is noted throughout and contributes to multilevel neural foraminal stenosis. Intervertebral discs: There is moderate degenerative disc space narrowing at C5-C6. The remaining disc spaces appear well maintained. Central canal: A posterior disc osteophyte complex at C5-C6 may contribute to mild acquired compromise of the central canal. Soft tissues: The prevertebral and paraspinous soft tissues are within normal limits. There is atherosclerotic calcification of the carotid bulbs. There is a 7 mm nodule in the posterior right lobe of the thyroid gland. Calvarium: The visualized calvarium at the skull base appears intact. Brain parenchyma: Partially visualized brain parenchyma the skull base is within normal limits noting age-related involutional change. Sinuses and mastoids: Trace fluid is present within the sphenoid sinuses. There is a small left mastoid effusion. The right mastoid air cells are well pneumatized. Lung apices: Biapical scarring is observed. Partially imaged apical lung parenchyma is otherwise clear as visualized. IMPRESSION: 1. There is no evidence of fracture or subluxation involving the cervical spine. 2. Osteopenia and spondylotic change as above. Electronically signed by: Matt Arteaga M.D. 05/15/2016 1:54 PM Dictated Date/Time: 05/15/2016 1:49 PM The status of this report is Signed. Draft = Not yet reviewed or approved by Radiologist. Signed = Reviewed and approved by Radiologist. CHEST ONE VIEW PORTABLE CLINICAL HISTORY: Pain status post Trauma COMPARISON STUDY: 12/19/2014 FINDINGS: The heart is at the upper limits of normal in size. There is a left subclavian dual-chamber central venous pacemaker present. The patient is mildly hyperinflated. There is no focal pulmonary consolidation. There are no pleural effusions. No pneumothorax is visualized.[ IMPRESSION: No active disease in the chest. Electronically signed by: Mihir Woods M.D. 05/15/2016 2:32 PM Dictated Date/Time: 05/15/2016 2:30 PM The status of this report is Signed. Draft = Not yet reviewed or approved by Radiologist. Signed = Reviewed and approved by Radiologist. ECHOCARDIOGRAM: Interpretation Summary * Name: CLARITA HUERTA Study Date: 05/16/2016 02:16 PM BP: 121/76 mmHg * [facility] HR: 124 * : 1940 (M/d/yyyy) Gender: Female Height: 64 in * Age: 75 yrs Ethnicity: SD Weight: 117 lb * Ordering Physician: Edie Haider * Performed By: Sarah Harrison * * Reason For Study: SYNCOPE * BSA: 1.6 m2 * -- Conclusions -- * Left ventricular systolic function is normal. * No regional wall motion abnormalities noted. * Ejection Fraction = 55-60%. * There is mild concentric left ventricular hypertrophy. * Aortic valve sclerosis mild, without significant aortic valvular stenosis. * There is mild mitral regurgitation. Procedure Details * A complete two-dimensional transthoracic echocardiogram was performed (2D, M- mode, Doppler and color flow Doppler). Left Ventricle * The left ventricle is normal in size. * There is mild concentric left ventricular hypertrophy. * Ejection Fraction = 55-60%. * Left ventricular systolic function is normal. * No regional wall motion abnormalities noted. Right Ventricle * The right ventricle is normal size. * The right ventricular systolic function is normal as assessed by tricuspid annular plane systolic excursion (TAPSE) (normal >1.5 cm). Atria * Borderline left atrial enlargement. * Right atrium not well visualized. * No ASD detected; PFO is not assessed. Mitral Valve * The mitral valve is grossly normal. * There is no mitral valve stenosis. * There is mild mitral regurgitation. Tricuspid Valve * The tricuspid valve is not well visualized. * There is no tricuspid stenosis. * Significant tricuspid regurgitation is absent. Aortic Valve * The aortic valve is tricuspid. The leaflet thickness if normal. There is no aortic stenosis, and no significant insufficiency. * Aortic valve sclerosis mild, without significant aortic valvular stenosis. * There is no significant aortic regurgitation. Pulmonic Valve * The pulmonic valve is not well visualized. Great Vessels * The aortic root is normal size. * The pulmonary is not well visualized. Pericardium/Pleural * There is no pericardial effusion. Great Vessels * IVC not well seen. MMode 2D Measurements and Calculations IVSd 1.6 cm IVSs 1.9 cm LVIDd 3.5 cm LVIDs 2.5 cm LVPWd 1.0 cm LVPWs 2.1 cm IVS/LVPW 1.5 FS 29.1 % EDV(Teich) 52.5 ml ESV(Teich) 22.7 ml EF(Teich) 56.8 % EDV(cubed) 44.6 ml ESV(cubed) 15.9 ml EF(cubed) 64.3 % % IVS thick 20.1 % % LVPW thick 104.8 % LV mass(C)d 158.6 grams LV mass(C)dI 101.8 grams/m\S\2 LV mass(C)s 220.7 grams LV mass(C)sI 141.7 grams/m\S\2 SV(Teich) 29.8 ml SI(Teich) 19.2 ml/m\S\2 SV(cubed) 28.7 ml SI(cubed) 18.4 ml/m\S\2 ACS 1.5 cm LA dimension 2.8 cm asc Aorta Diam 3.3 cm LVOT diam 1.9 cm LVOT area 2.9 cm\S\2 LVAd ap4 23.5 cm\S\2 LVLd ap4 6.3 cm EDV(MOD-sp4) 71.9 ml EDV(sp4-el) 74.5 ml LVAs ap4 15.0 cm\S\2 LVLs ap4 5.8 cm ESV(MOD-sp4) 32.1 ml ESV(sp4-el) 32.9 ml EF(MOD-sp4) 55.4 % EF(sp4-el) 55.8 % LVAd ap2 21.6 cm\S\2 LVLd ap2 6.2 cm EDV(MOD-sp2) 60.5 ml EDV(sp2-el) 64.0 ml LVAs ap2 12.8 cm\S\2 LVLs ap2 5.3 cm ESV(MOD-sp2) 26.2 ml ESV(sp2-el) 26.0 ml EF(MOD-sp2) 56.7 % EF(sp2-el) 59.4 % LVLd %diff -2.15 % EDV(MOD-bp) 66.4 ml LVLs %diff -9.07 % ESV(MOD-bp) 30.3 ml EF(MOD-bp) 54.4 % SV(MOD-sp4) 39.8 ml SI(MOD-sp4) 25.6 ml/m\S\2 SV(MOD-sp2) 34.3 ml SI(MOD-sp2) 22.0 ml/m\S\2 SV(MOD-bp) 36.1 ml SI(MOD-bp) 23.2 ml/m\S\2 SV(sp4-el) 41.6 ml SI(sp4-el) 26.7 ml/m\S\2 SV(sp2-el) 38.0 ml SI(sp2-el) 24.4 ml/m\S\2 Doppler Measurements and Calculations MV E max annemarie 92.7 cm/sec MV dec time 0.18 sec Ao V2 max 136.1 cm/sec Ao max PG 7.4 mmHg Ao max PG (full) 4.3 mmHg JAME(V,A) 1.9 cm\S\2 JAME(V,D) 1.9 cm\S\2 LV V1 max PG 3.1 mmHg LV V1 mean PG 1.3 mmHg LV V1 max 88.6 cm/sec LV V1 mean 49.4 cm/sec LV V1 VTI 16.0 cm MR max annemarie 211.2 cm/sec MR max PG 17.8 mmHg SV(LVOT) 45.7 ml SI(LVOT) 29.3 ml/m\S\2 PA V2 max 100.0 cm/sec PA max PG 4.1 mmHg TR max annemarie 260.7 cm/sec Created: Initialized: 05/16/16; 1410 <Electronically signed by Joby Mcneil M.D.> Signed: 05/17/16 1000 Joby Mcneil M.D. The status of this report is Signed. Draft = Not yet reviewed or approved by Apartment Rental Clerk. Signed = Reviewed and approved by Apartment Rental Clerk. Consultations: Cardiology- Dr. Mcneil Medication Reconciliation Continued Medications: Amlodipine (Norvasc) 2.5 Mg Tab 2.5 MG PO DAILY, TAB DAILY AT 1600 Aspirin (Aspirin 81) 81 Mg Tab 162 MG PO DAILY Atorvastatin (Lipitor) 10 Mg Tab 10 MG PO DAILY, TAB Calcium Carbonate-Cholecalcife (Caltrate 600+D) 1 Tab Tab 1 TAB PEG BID Clonidine HCl (Clonidine HCl) 0.1 Mg Tab 1 MG PO BID 1 TAB IN AM, 1 TAB AT 5:00 P.M. Clonidine HCl (Clonidine HCl) 0.2 Mg Tab 0.2 MG PO HS Docusate Sodium (Colace) 100 Mg Cap 200 MG PO QAM, #2 Fish Oil ([place]-3) 1 Ea Cap 2 CAP PO BID, CAP Lorazepam (Lorazepam) 0.5 Mg Tab 0.5 MG PO TID PRN for . Metoprolol Succinate (Metoprolol Succinate ER) 100 Mg Tabcr 100 MG PO BID, #180 ONE TAB BID Metoprolol Tartrate (Lopressor) (Lopressor) 50 Mg Tab 50 MG PO DAILY PRN for PALPITATIONS, 0 Refills CAN TAKE 1-2 TBS PO DAILY IFNEEDEF FOR PALPITATIONS Multiple Vitamins W/ Minerals (Centrum) 1 Tab Tab PO, #1 Pantoprazole (Protonix) 40 Mg Tab 40 MG PO DAILY, #30 0 Refills Spironolactone (Spironolactone) 25 Mg Tab #90 TAKE WITH FOOD ONE DAILY Discharge Exam Review of Systems: Constitutional: No chills, No fatigue, No fever, No sweats, No weakness ENT: No hearing loss Respiratory: + cough, No hemoptysis, No shortness of breath, No sputum Cardiovascular: No chest pain, No edema, No palpitations Abdomen: No constipation, No diarrhea, No nausea, No pain, No vomiting Musculoskeletal: No calf pain, No joint pain, No muscle pain, No swelling Genitourinary - Female: No dysuria, No hematuria Neurologic: No numbness/tingling, No weakness Psychiatric: No anxiety, No depression symptoms Hematologic / Lymphatic: No abnormal bleeding/bruising Integumentary: No itch, No new/changing skin lesions, No rash Physical Exam: General Appearance: no apparent distress, + thin Eyes: normal inspection, PERRL ENT: hearing grossly normal Neck: supple Respiratory/Chest: lungs clear, no respiratory distress, no accessory muscle use Cardiovascular: + irregularly irregular (rate controlled) Abdomen / GI: normal bowel sounds, non tender, soft Extremities: no calf tenderness, no pedal edema Neurologic/Psychiatric: alert, normal mood/affect, oriented x 3, + pertinent finding (tremor ) Skin: normal color, warm/dry, no rash Hospital Course 75 y/o female, with PMHx of Parkinson disease, HTN, HDL, CAD, paroxysmal a.fib, s/p pacemaker implant, and GERD, who presented to the ED because of a fall occurring the night of 05/14-05/15, with family wanting placement. s/p fall, with mild rhabdo, improving: - Admit med/surg w/ fall precautions - CT head/Neck, CXR, Hip/pelvis x-rays all neg for acute process - Interrogation of pacer shows a-fib but no other significant events that could cause syncope - Treat with IV NSS @ 80 ml/hr - Consulted PT/OT - U/A dirty, urine culture with +3 organisms--> Rocephin IV x1 dose - PRP and CPK followed HTN: Continue Norvasc 2.5 mg, Clonidine 1 mg BID HDL: Continue Atorvastatin 10 mg A.fib/CAD: - Continue Metoprolol 100 mg BID and 50 mg PRN - Continue ASA 81 mg - ECHO with mild MR, EF 55-60%, mild LVH, no wall motion abnormalities - Consulted cardiology due to mild elevation in troponin, like secondary to demand ischemia. Peak trop 0.279 GERD: Continue Protonix daily Osteoporosis- Vit D 47 on 12/2015: Continue MVI H/o left partial nephrectomy for RCC, Chronic right mild-mod hydronephrosis, Nephrolithiasis- seen on recent CT scan as outpt - Stable, follows with Urology routinely Pancreatic cyst/Sidebranch IPMN 7 mm-stable on recent CT Right ovarian solid mass 4.1 cm -stable from previous: - Routinely followed by [facility] as per patient Bronchiectasis in RML, lingula on recent CT abd/pel-pt does report today she has been coughing lately: - Has outpt Pulm appt scheduled with Dr. Bai for further eval - Could be from chronic aspiration given Parkinson's - Speech therapy consult GI Prophylaxis: Maalox PRN, IV Zofran PRN, Colace and/or Milk of Mag PRN DVT prophylaxis: Heparin 5000 units SQ q12 hrs, ANETTE and SCDs Code Status: LEVEL I, FULL Dispo: Discharge to [facility] Total Time Spent: Greater than 30 minutes This includes examination of the patient, discharge planning, medication reconciliation, and communication with other providers. Discharge Instructions Please refer to the electronic Patient Visit Report (Discharge Instructions) for additional information. Follow-Up Please follow-up with [facility] provider within 5-7 days Please follow-up/keep all of your subspecialty appointments Additional Copies To RV. Briggs MD
[2016-05-18 12:10] VITALS: BP 158/74; PULSE 94; TEMP 37.1; O2SAT 93
[2016-07-22] MEDS ORDERED: TPRSR/100 PO (03:23)
[2016-07-22] MEDS ORDERED: SPR25 PO (03:23)
[2016-07-22] MEDS ORDERED: PANT40TA PO (07:48)
[2016-07-22] MEDS ORDERED: CALC-354 PO (10:12)
[2016-07-22] MEDS ORDERED: ATOR10TA88 PO (11:32)
[2016-07-22] MEDS ORDERED: ATV5 PO (11:32)
[2016-07-22] MEDS ORDERED: CTP1X PO (11:32)
[2016-07-22] MEDS ORDERED: CTP2 PO (11:32)
[2016-07-26] MEDS ORDERED: OXYC1TAB3 PO (13:24)
[2016-07-26] MEDS ORDERED: ATV5 PO (13:24)
[2016-07-26] MEDS ORDERED: SNM/25100 PO (13:24)
== END 2016-05-18 14:37 | DRG 558 ==
LOC: ENRESERVTM → ENRESERVDT → EDBD 11:04 → C.EDC 11:07 → C.MS2W 15:09
PROVIDERS: ADMIT Hospitalist; ATTEND Internal Medicine
DX: M62.82 Rhabdomyolysis (principal); N39.0 Urinary tract infection, site not specified; N13.30 Unspecified hydronephrosis; G20 Parkinson's disease; K21.9 Gastro-esophageal reflux disease without esophagitis; Z87.891 Personal history of nicotine dependence; I10 Essential (primary) hypertension; E78.00 Pure hypercholesterolemia, unspecified; I25.10 Atherosclerotic heart disease of native coronary artery without angina pectoris; Z95.0 Presence of cardiac pacemaker; Y92.009 Unspecified place in unspecified non-institutional (private) residence as the place of occurrence of the external cause; R33.9 Retention of urine, unspecified; M85.80 Other specified disorders of bone density and structure, unspecified site; K59.00 Constipation, unspecified; Z85.528 Personal history of other malignant neoplasm of kidney; Z90.5 Acquired absence of kidney; W19.XXXA Unspecified fall, initial encounter; I44.7 Left bundle-branch block, unspecified

== ENCOUNTER → 2016-06-19 | Outpatient (CLI) | payer OTHER, BC ==
[~2016-06-19] MED LIST changes: +ACET325T96 PO; +ASPCH81X PO; -ASPEC81 PO; +ASPI-435 PO; +ATOR10TA82 PO; +CALC-354 PO; -CTP1 PO; +CTP1X PO; +CTP2 PO; +DOCU100C22 PO; -LPT10 PO; +MOML PO; +MULT-411 PO; +OMEG10007 PO; +OXYC1TAB3 PO; +PANT40TA PO; +SNM/25100 PO; +SPR25 PO; +TPRSR/100 PO
== END | disposition home or self-care (01) ==
LOC: C.LABSPEC 16:25
PROVIDERS: ATTEND Obstetrics & Gynecology
DX: N81.11 Cystocele, midline (principal); N76.0 Acute vaginitis

== ENCOUNTER 2016-07-22 18:08 | Inpatient (IN) | payer OTHER ==
[~2016-07-22] VITALS: Ht 162.6 cm; Wt 48.7 kg
[~2016-07-22 18:08] MED LIST changes: -ACET325T96 PO; -ASPCH81X PO; -DOCU100C22 PO; -MOML PO; -MULT-411 PO; -OXYC1TAB3 PO; -SNM/25100 PO
[2016-07-22 19:17] LABS: BASO % 0.2 %; BASO ABS # 0.02 K/uL (0-0.2); COMPLETE YES; EOS % 1.4 %; HEMATOCRIT 35.6 % (37-47); IG% 0.3 %; LYMPH % 14.3 %; LYMPH ABS # 1.29 K/uL (1.2-3.4); MEAN CELL VOLUME 89.4 fL (80-100); MEAN CORPUSCULAR HEMOGLOBIN 28.6 pg (25-34); MONO % 8.8 %; PLATELET COUNT 273 K/uL (130-400); RED BLOOD COUNT 3.98 M/uL (4.2-5.4)
[2016-07-22 19:18] LABS: URINE APPEARANCE CLOUDY (CLEAR); URINE BILIRUBIN NEG (NEG); URINE COLOR YELLOW; URINE NITRITE NEG (NEG); URINE SPECIFIC GRAVITY 1.016 (1.000-1.030); UROBILINOGEN NEG (NEG)
[2016-07-22 19:21] LABS: MANUAL MICROSCOPIC REQUIRED? NO; REVIEW REQ? YES
--- NOTE | 2016-07-22 19:22 | DIAGNOSTIC IMAGING REPORT ---
HEAD CT NONCONTRAST CT DOSE: 638.56 mGycm HISTORY: Trauma fall TECHNIQUE: Multiaxial CT images of the head were performed without the use of intravenous contrast. Comparison: None. Findings: The paranasal sinuses and mastoid air cells are clear. The calvarium and skull base are intact. The ventricles and sulci are within normal limits. There is no mass, hematoma, midline shift, or acute infarct. Impression: No acute intracranial abnormality. Electronically signed by: Popeye Klein M.D. 07/22/2016 7:20 PM Dictated Date/Time: 07/22/2016 7:19 PM
--- NOTE | 2016-07-22 19:25 | DIAGNOSTIC IMAGING REPORT ---
CERVICAL SPINE CT CT DOSE: 340.84 mGycm HISTORY: Trauma fall TECHNIQUE: Multiaxial CT images of the cervical spine were performed and reformatted in the sagittal and coronal plane without the use of contrast. COMPARISON: None. FINDINGS: No fractures. No subluxation. Prevertebral soft tissues and the C1-C2 interval are intact. No pneumothorax. IMPRESSION: No fractures within the cervical spine. Moderate degenerative change. Electronically signed by: Popeye Klein M.D. 07/22/2016 7:24 PM Dictated Date/Time: 07/22/2016 7:22 PM
[2016-07-22] MEDS ORDERED: MULT-411 PO (19:30)
[2016-07-22] MEDS ORDERED: ASPCH81X PO (19:30)
[2016-07-22] MEDS ORDERED: DOCU100C22 PO (19:30)
[2016-07-22] MEDS ORDERED: MOML PO (19:32)
[2016-07-22] MEDS ORDERED: ACET325T96 PO (19:32)
[2016-07-22 19:35] LABS: ALT/SGPT 31 U/L (12-78); AST/SGOT 20 U/L (15-37); BLOOD UREA NITROGEN 14 mg/dl (7-18); BUN/CREATININE RATIO 13.2 (10-20); CALCIUM 9.2 mg/dl (8.5-10.1); CARBON DIOXIDE 31 mmol/L (21-32); CHLORIDE 103 mmol/L (98-107); GLUCOSE 113 mg/dl (70-99); POTASSIUM 4.1 mmol/L (3.5-5.1); SODIUM 139 mmol/L (136-145)
[2016-07-22] MEDS ORDERED: OXYCODONE HCL IR 5 MG TAB (IMMEDIATE RELEASE) PO STA ×3 (19:37→21:02)
[2016-07-22] MEDS ORDERED: ACETAMINOPHEN 500 MG TAB PO STA (19:37)
[2016-07-22 19:38] LABS: ALKALINE PHOSPHATASE 85 U/L (45-117)
[2016-07-22 19:47] LABS: URINE MUCUS PRESENT (NONE PRSENT)
[2016-07-22 19:48] LABS: ZZURINE CULT IF INDIC CATH YES
--- NOTE | 2016-07-22 20:25 | DIAGNOSTIC IMAGING REPORT ---
LUMBAR SPINE 2 OR 3 VIEWS CLINICAL HISTORY: fall lower back pain trauma. Pain. COMPARISON STUDY: 12/06/2012 FINDINGS: Degenerative change. No acute compression deformity. Generalized osteopenia. IMPRESSION: Degenerative change. Osteopenia. No acute process. Electronically signed by: Popeye Klein M.D. 07/22/2016 8:24 PM Dictated Date/Time: 07/22/2016 8:23 PM
--- NOTE | 2016-07-22 20:26 | DIAGNOSTIC IMAGING REPORT ---
CHEST ONE VIEW PORTABLE CLINICAL HISTORY: fall trauma COMPARISON STUDY: 05/15/2016 FINDINGS: Bipolar cardiac pacemaker. Diaphragms smooth. Lungs are clear. Mild emphysematous change. IMPRESSION: Chronic change. No acute process. Electronically signed by: Popeye Klein M.D. 07/22/2016 8:25 PM Dictated Date/Time: 07/22/2016 8:24 PM
--- NOTE | 2016-07-22 20:28 | DIAGNOSTIC IMAGING REPORT ---
SACRUM COCCYX MIN 2 VIEWS CLINICAL HISTORY: fall trauma COMPARISON STUDY: None FINDINGS: No acute process IMPRESSION: No acute process Electronically signed by: Popeye Klein M.D. 07/22/2016 8:27 PM Dictated Date/Time: 07/22/2016 8:25 PM
--- NOTE | 2016-07-22 20:30 | DIAGNOSTIC IMAGING REPORT ---
PELVIS 1 OR 2 VIEW ROUTINE CLINICAL HISTORY: fall trauma COMPARISON: None. DISCUSSION: The bones and joint spaces appear intact. There is no evidence of fracture, dislocation or bony disease. Moderate generalized degenerative change IMPRESSION: Moderate degenerative change. No acute process. Electronically signed by: Popeye Klein M.D. 07/22/2016 8:28 PM Dictated Date/Time: 07/22/2016 8:28 PM
[2016-07-22] MEDS ORDERED: OXYC1TAB3 PO (21:06)
[2016-07-22] MEDS ORDERED: OXYCODONE IR HOME PACK PO ONE (21:15)
[2016-07-22] MEDS ORDERED: OPTIRAY 320 IV PRN (22:15)
[2016-07-22] MEDS ORDERED: ACETAMINOPHEN 325 MG TAB PO PRN ×2 (22:15→22:45)
[2016-07-22 22:21] LABS: VEN BLOOD GAS BASE EXCESS 4.4 mmol/L; VENOUS BLOOD GAS PCO2 41 mmHg (38.0-50.0); VENOUS BLOOD GAS PO2 59 mmHg
[2016-07-22] MEDS ORDERED: MAGNESIUM HYDROXIDE SUSP 30 ML UDC PO PRN (22:45)
--- NOTE | 2016-07-22 22:58 | DIAGNOSTIC IMAGING REPORT ---
CHEST CTA for PULMONARY ARTERIES CT DOSE: 349.69 mGy.cm HISTORY: Chest pain dyspnea TECHNIQUE: Multiaxial CT images of the chest were performed following the intravenous administration of contrast to evaluate the pulmonary arteries. Maximal intensity projection images were also obtained. COMPARISON STUDY: 02/28/2009 FINDINGS: Moderate atherosclerotic change thoracic aorta. Pulmonary vasculature enhances appropriately. There are no significant filling defects. The peripheral pleura vessels are not well seen due to overlying respiratory artifact. Moderate bibasilar atelectatic change. Several old rib fractures. IMPRESSION: 1. No evidence for pulmonary embolus. 2. Mild bibasilar atelectasis. 3. Moderate cardiomegaly. 4. Moderate degenerative change thoracic spine. Electronically signed by: Popeye Klein M.D. 07/22/2016 10:56 PM Dictated Date/Time: 07/22/2016 10:52 PM
--- NOTE | 2016-07-22 23:01 | History and Physical ---
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 She presented to the ER after falling earlier in the day using her walker and stumbling backwards onto the carpet. She denies any chest pain, shortness of breath or dizziness before the fall but lost her balance. She describes some coccyx area pain after falling. She denies any hip pain or pain in other joints or muscles. She feels she is currently back to her normal self except for the pain in her back and denies any confusion. She reportedly has a diagnosis of Parkinson's disease for over a decade but has always been resistant to taking medication for this as she has been scared about the side effects. She is under Dr Tucker who the family report has been advocating for medications to treat her Parkinson's for quite some time. She now appears more open to the concept of medications given the large risk of falling and potentially breaking a hip (she has fallen multiple times recently). In the ER she had a XR of pelvis, lumbar spine, coccyx, CT head and c spine which showed no acute pathology. She was hypoxic to 85% on room air and therefore had a d-dimer > [address] for PE was negative for PE but does show moderate cardiomegaly, moderate bibasal atelectasis and several old rib fractures. Past Medical/Surgical History Medical Problems: GERD Coronary Artery Disease Cardiac pacemaker for sick sinus syndrome Chronic constipation CKD stage 3 Cystocele History of basal cell carcinoma History of squamous cell carcinoma in situ Hyperlipidemia Hypertension Left bundle-branch block Nephrolithiasis Nontoxic multinodular goiter Osteoporosis PAD (peripheral artery disease) - Intermittent claudication Pancreatic cysts Parkinson's disease Paroxysmal atrial fibrillation Rectocele Hx of renal cell carcinoma s/p partial nephrectomy Family History No pertinent family history Social History Smoking Status: Never Smoker Drug Use: none Housing status: lives alone Occupational Status: retired Immunizations History of Influenza Vaccine: Yes Influenza Vaccine Date: Nov 26, 2008 History of Tetanus Vaccine?: Yes Tetanus Immunization Date: Nov 27, 2007 History of Pneumococcal: Yes Pneumococcal Date: Nov 27, 2007 History of Hepatitis B Vaccine: No Multi-Drug Resistant Organisms History of MDRO: No Allergies Coded Allergies: Diclofenac (Verified Adverse Reaction, Severe, NAUSEA, 05/15/16) Penicillins (Verified Adverse Reaction, Severe, N/V, 05/15/16) Replaces AUGMENTIN 250 Ciprofloxacin (Verified Adverse Reaction, Unknown, "i get irregular heartbeat.", 05/15/16) Home Medications Scheduled Aspirin (Aspirin Chewable), 162 MG PO DAILY Atorvastatin (Lipitor), 10 MG PO Q2D Calcium Carbonate-Cholecalcife (Caltrate 600+D), 1 TAB PO BID Clonidine HCl (Clonidine HCl), 0.1 MG PO BID Clonidine HCl (Clonidine HCl), 0.2 MG PO HS Docusate Sodium (Docqlace), 200 MG PO QAM Levodopa/Carbidopa (Sinemet 25MG/100MG), 0.5 TAB PO BID Lorazepam (Lorazepam), 0.5 MG PO BID Metoprolol Succinate (Metoprolol Succinate ER), 100 MG PO BID Multiple Vitamin (Daily Lauro), 1 TAB PO DAILY Pantoprazole (Protonix), 40 MG PO DAILY Spironolactone (Spironolactone), 25 MG PO Q2D Scheduled PRN Acetaminophen Tab (Tylenol), 650 MG PO Q4H PRN for Pain Magnesium Hydroxide (Milk Of Magnesia), 30 ML PO UD PRN for Constipation Oxycodone Immediate Rel Tab (Roxicodone Ir), 5 MG PO Q6H PRN for Pain Review of Systems Constitutional: + weight loss, No chills, No fever Eyes: No worsening of vision ENT: No hearing loss, No sore throat Respiratory: + cough (with eating), No hemoptysis, No shortness of breath, No wheezing Cardiovascular: No PND, No chest pain, No claudication, No edema, No orthopnea , No palpitations Abdomen: + constipation (chronic), No GI bleeding, No diarrhea, No nausea, No pain, No vomiting Musculoskeletal: + joint pain (back), + muscle pain, No calf pain, No swelling Genitourinary - Female: No dysuria, No urinary frequency Hematologic / Lymphatic: No abnormal bleeding/bruising Integumentary: No itch, No rash Physical Exam Vital Signs Date Time Temp Pulse Resp B/P Pulse Ox O2 Delivery O2 Flow Rate FiO2 07/22/16 21:09 97 Nasal Cannula 2.0 5/10/17 21:09 85 Room Air 07/22/16 21:09 76 18 177/83 97 Nasal Cannula 2.0 07/22/16 20:34 74 168/97 07/22/16 18:15 36.8 184/78 Room Air General Appearance: WD/WN, no apparent distress, + pertinent finding (obvious resting tremor which improves) Head: normocephalic, atraumatic Eyes: PERRL, EOMI (nystagmus present) Neck: trachea midline Respiratory/Chest: chest non-tender, no respiratory distress, no accessory muscle use, + crackles (bibasal) Cardiovascular: regular rate, rhythm, no edema, normal peripheral pulses, + systolic murmur (LUSB soft) Abdomen/GI: normal bowel sounds, non tender, soft Back: no CVA tenderness Extremities/Musculoskelatal: no calf tenderness, normal capillary refill, no pedal edema, + pertinent finding (right leg 1-2 cm shorter than left, no pain on active movement but she has some groin pain on passive internal/external hip rotation and palpation over her right, no central spinal tenderness, no other bone tenderness on palpation) Neurologic/Psych: no motor/sensory deficits (No focal. Obvious resting pin wheeling tremor. Cogwheel rigidity present. Flat facies.), alert, oriented x 3, + depressed affect (flat) Skin: normal color, warm/dry, no rash Diagnostics Laboratory Results Results Past 24 Hours Test 07/22/16 18:55 07/22/16 22:09 Range/Units White Blood Count 9.00 4.8-10.8 K/uL Red Blood Count 3.98 4.2-5.4 M/uL Hemoglobin 11.4 12.0-16.0 g/dL Hematocrit 35.6 37-47 % Mean Corpuscular Volume 89.4 80-100 fL Mean Corpuscular Hemoglobin 28.6 25-34 pg Mean Corpuscular Hemoglobin Concent 32.0 32-36 g/dl Platelet Count 273 130-400 K/uL Mean Platelet Volume 11.0 7.4-10.4 fL Neutrophils (%) (Auto) 75.0 % Lymphocytes (%) (Auto) 14.3 % Monocytes (%) (Auto) 8.8 % Eosinophils (%) (Auto) 1.4 % Basophils (%) (Auto) 0.2 % Neutrophils # (Auto) 6.74 1.4-6.5 K/uL Lymphocytes # (Auto) 1.29 1.2-3.4 K/uL Monocytes # (Auto) 0.79 0.11-0.59 K/uL Eosinophils # (Auto) 0.13 0-0.5 K/uL Basophils # (Auto) 0.02 0-0.2 K/uL RDW Standard Deviation 45.8 36.4-46.3 fL RDW Coefficient of Variation 13.9 11.5-14.5 % Immature Granulocyte % (Auto) 0.3 % Immature Granulocyte # (Auto) 0.03 0.00-0.02 K/uL D-Dimer 04853 0-500 ug/L FEU Urine Color YELLOW Urine Appearance CLOUDY CLEAR Urine pH 8.0 4.5-7.5 Urine Specific [place] 1.016 1.000-1.030 Urine Protein NEG NEG Urine Glucose (UA) NEG NEG Urine Ketones NEG NEG Urine Occult Blood NEG NEG Urine Nitrite NEG NEG Urine Bilirubin NEG NEG Urine Urobilinogen NEG NEG Urine Leukocyte Esterase NEG NEG Urine WBC (Auto) 1-5 0-5 /hpf Urine RBC (Auto) 0-4 0-4 /hpf Urine Hyaline Casts (Auto) 1-5 0-5 /lpf Urine Epithelial Cells (Auto) 5-10 0-5 /lpf Urine Bacteria (Auto) 1+ NEG Urine Crystals AMORPHOUS SEDIMENT NONE PRSENT Urine Mucus PRESENT NONE PRSENT Sodium Level 139 136-145 mmol/L Potassium Level 4.1 3.5-5.1 mmol/L Chloride Level 103 98-107 mmol/L Carbon Dioxide Level 31 21-32 mmol/L Anion Gap 5.0 3-11 mmol/L Blood Urea Nitrogen 14 7-18 mg/dl Creatinine 1.10 0.60-1.20 mg/dl Estimated GFR () 55.7 Estimated GFR (Non- 48.1 BUN/Creatinine Ratio 13.2 10-20 Random Glucose 113 70-99 mg/dl Calcium Level 9.2 8.5-10.1 mg/dl Total Bilirubin 0.3 0.2-1 mg/dl Direct Bilirubin 0.1 0-0.2 mg/dl Aspartate Amino Transf (AST/SGOT) 20 15-37 U/L Alanine Aminotransferase (ALT/SGPT) 31 12-78 U/L Alkaline Phosphatase 85 45-117 U/L Troponin I 0.079 0-0.045 ng/ml Total Protein 7.1 6.4-8.2 gm/dl Albumin 3.2 3.4-5.0 gm/dl Lipase 123 73-393 U/L Venous Blood pH 7.46 7.36-7.41 Venous Blood Partial Pressure CO2 41 38.0-50.0 mmHg Venous Blood Partial Pressure O2 59 mmHg Venous Blood HCO3 29 meq/L Venous Blood Oxygen Saturation 89.0 % Venous Blood Base Excess 4.4 mmol/L Microbiology Results 07/22/16 Urine Culture, Received Pending Diagnostic Radiology CHEST CTA for PULMONARY ARTERIES FINDINGS: Moderate atherosclerotic change thoracic aorta. Pulmonary vasculature enhances appropriately. There are no significant filling defects. The peripheral pleura vessels are not well seen due to overlying respiratory artifact. Moderate bibasilar atelectatic change. Several old rib fractures. IMPRESSION: 1. No evidence for pulmonary embolus 2. Mild bibasilar atelectasis. 3. Moderate cardiomegaly. 4. Moderate degenerative change thoracic spine. Electronically signed by: Popeye Klein M.D. 07/22/2016 10:56 PM Dictated Date/Time: 07/22/2016 10:[address] FINDINGS: No fractures. No subluxation. Prevertebral soft tissues and the C1-C2 interval are intact. No pneumothorax. IMPRESSION: No fractures within the cervical spine. Moderate degenerative change. Electronically signed by: Popeye Klein M.D. 07/22/2016 7:24 PM Dictated Date/Time: 07/22/2016 7:22 PM CHEST ONE VIEW PORTABLE FINDINGS: Bipolar cardiac pacemaker. Diaphragms smooth. Lungs are clear. Mild emphysematous change. IMPRESSION: Chronic change. No acute process. Electronically signed by: Popeye Klein M.D. 07/22/2016 8:25 PM Dictated Date/Time: 07/22/2016 8:24 PM SACRUM COCCYX MIN 2 VIEWS FINDINGS: No acute process IMPRESSION: No acute process Electronically signed by: Popeye Klein M.D. 07/22/2016 8:27 PM Dictated Date/Time: 07/22/2016 8:[address] NONCONTRAST Findings: The paranasal sinuses and mastoid air cells are clear. The calvarium and skull base are intact. The ventricles and sulci are within normal limits. There is no mass, hematoma, midline shift, or acute infarct. Impression: No acute intracranial abnormality. Electronically signed by: Popeye Klein M.D. 07/22/2016 7:20 PM Dictated Date/Time: 07/22/2016 7:19 PM EKG Difficult to interpret EKG given underlying tremor but appears sinus with LBBB present. Appears similar to previous EKG on 05/15/16 but no longer atrial paced Impression Assessment and Plan 76 year old female with untreated Parkinson's disease presents with fall. Fall - due to poor balance and immobility secondary to untreated Parkinson's disease. No current infective cause found. - no substantial injuries from the fall although her right leg is minimally shorter than her left she does not appear to have pain on active movement. If she is unable to mobilize on this leg however have a low tolerance to consider additional imaging (CT/MRI) Hypoxia - possible aspiration pneumonitis vs. atelectasis post fall vs. chronic bronchiectasis - CT chest clear of infection or PE - known diagnosis of bronchiectasis and suspected aspirations - incentive spirometry - NPO with IVF and Speech consult - aim sats O2 >92% Elevated troponin - coronary artery disease (ASA, atorvastatin, metoprolol) - trend overnight - will get echo if dynamic EKG changes - no chest pain or shortness of breath to suggest ACS - troponin lower than when she had a previous fall back in May Parkinsons Disease - Consult neurology - Dr Tucker Constipation - after cleared to eat and drink I would try some milk of magnesia which has helped her in the past. VTE Prophylaxis - heparin 5000 units Q12H Code - DNR as per patient wishes Disposition - Admit to telemetry Level of Care Telemetry Advanced Directives Existing Advance Directive: Yes Existing Living Will: Yes Resuscitation Status FULL RESUSCITATION VTE Prophylaxis VTE Risk Assessment Done? Y/N: Yes Risk Level: Moderate Resident Tracking Resident Involvement: Resident Care Provided Care Provided: Adult Hospital Medicine Assessment and Plan Attending Addendum: I have physically seen and examined this patient, have directed their medical care, have supervised the medical residents activities, and agree with the H&P as noted above, with the following changes: NONE
[2016-07-22 23:45] VITALS: BP 208/81; PULSE 87; TEMP 36.9; O2SAT 94; Ht 162.6 cm; Wt 48.7 kg
--- NOTE | 2016-07-23 00:19 | EMERGENCY ROOM VISIT NOTE ---
History Report prepared by Gt: Francisca Nichols Under the Supervision of: Dr. Villa England D.O. First contact with patient: 18:21 Chief Complaint: FALL Stated Complaint: FELL THIS MORNING, HURT HEAD AND LOWER BACK History of Present Illness The patient is a 76 year old female who presents to the Emergency Room with complaints of a sudden fall this morning occurring 8 hours [employer] SOFTWARE [employer]. The patient states that when she was walking with her walker today she fell backwards and hit her head. She states that she does not think she lost consciousness. She states that she yelled for help and once the ambulance arrived she was helped up and was seen to make sure she could walk. The patient states she did not go to the ED after being initially evaluated. The patient states that currently she has head pain in the back of her head, and buttock pain, back pain and hip pain. The patient states that she had a fall 5 days ago but does not remember how it occurred. The patient denies any burning or pain with urination, shortness of breath or chest pain. The patient's family states that the patient has been experiencing falls since July 15, 2016. They states that they are not sure why the patient has been falling more often and are not sure if it is related to her Parkinson's. They state that the patient has had more of a mental status change recently and is not as sharp in her memory as usual. They state that the patient was also grouchier today than usual as well as has slower speech since the fall. Source of History: patient, family Onset: 8 hours [employer] SOFTWARE ENGINE[employer] Position: other (global) Timing: other (sudden) Associated Symptoms: + back pain, No LOC, No SOB, No chest pain Note: Associated symptoms: change in mental status, not as sharp in memory, grouchier , slower speech, buttock pain, hip pain, head pain in back of head. Patient denies pain or burning with urination. Review of Systems See HPI for pertinent positives & negatives. A total of 10 systems reviewed and were otherwise negative. Past Medical & Surgical Medical Problems: (1) A-fib (2) Fall (3) Hypoxia (4) Parkinson disease (5) Reflux Family History No pertinent family history Social History Smoking Status: Never Smoker Drug Use: none Housing Status: lives with family Occupation Status: retired Current/Historical Medications Scheduled Aspirin (Aspirin Chewable), 162 MG PO DAILY Atorvastatin (Lipitor), 10 MG PO Q2D Calcium Carbonate-Cholecalcife (Caltrate 600+D), 1 TAB PO BID Clonidine HCl (Clonidine HCl), 0.1 MG PO BID Clonidine HCl (Clonidine HCl), 0.2 MG PO HS Docusate Sodium (Docqlace), 200 MG PO QAM Lorazepam (Lorazepam), 0.5 MG PO BID Metoprolol Succinate (Metoprolol Succinate ER), 100 MG PO BID Multiple Vitamin (Daily Lauro), 1 TAB PO DAILY Pantoprazole (Protonix), 40 MG PO DAILY Spironolactone (Spironolactone), 25 MG PO Q2D Scheduled PRN Acetaminophen Tab (Tylenol), 650 MG PO Q4H PRN for Pain Magnesium Hydroxide (Milk Of Magnesia), 30 ML PO UD PRN for Constipation Oxycodone Immediate Rel Tab (Roxicodone Ir), 5 MG PO Q6H PRN for Pain Allergies Coded Allergies: Diclofenac (Verified Adverse Reaction, Severe, NAUSEA, 05/15/16) Penicillins (Verified Adverse Reaction, Severe, N/V, 05/15/16) Replaces AUGMENTIN 250 Ciprofloxacin (Verified Adverse Reaction, Unknown, "i get irregular heartbeat.", 05/15/16) Physical Exam Vital Signs Date Time Temp Pulse Resp B/P Pulse Ox O2 Delivery O2 Flow Rate FiO2 07/22/16 23:54 83 18 173/95 96 07/22/16 22:37 91 18 177/81 96 Room Air 07/22/16 21:09 97 Nasal Cannula 2.0 07/22/16 21:09 85 Room Air 07/22/16 21:09 76 18 177/83 97 Nasal Cannula 2.0 07/22/16 20:34 74 168/97 07/22/16 18:15 36.8 184/78 Room Air Physical Exam GENERAL: Sitting up in bed, disheveled, malnourished and cachectic HEAD: normal cephalic, atraumatic EYE EXAM: normal conjunctiva, PERRL and EOM's grossly intact OROPHARYNX: no exudate, no erythema, lips, buccal mucosa, and tongue normal and mucous membranes are moist NOSE: no septal hematoma EARS: TMs clear b/l NECK: supple, no nuchal rigidity, no adenopathy, non-tender CHEST: stable to compression anteriorly and posteriorly LUNGS: clear to auscultation. Normal chest wall mechanics HEART: no murmurs, S1 normal and S2 normal ABDOMEN: abdomen soft, non-tender, normo-active bowel sounds, no masses, no rebound or guarding. PELVIS: stable to compression anteriorly and posteriorly, pain at sacrum tracing to coccyx. BACK: Back is symmetrical on inspection and there is no deformity, no midline tenderness, no CVA tenderness. UPPER EXTREMITIES: full active and passive range of motion of all joints without tenderness to palpation LOWER EXTREMITIES: full active and passive range of motion of all joints without tenderness to palpation SKIN: faint abrasion over bilateral knees. NEURO EXAM: Alert, orbited to person, place and time. Resting tremor in upper extremities with rigidity. no gross weakness of arms, no gross weakness of legs. GCS: 15. Medical Decision & Procedures ER Provider Diagnostic Interpretation: CT:Per my review, radiologist interpretation. HEAD CT NONCONTRAST CT DOSE: 638.56 mGycm HISTORY: Trauma fall TECHNIQUE: Multiaxial CT images of the head were performed without the use of intravenous contrast. Comparison: None. Findings: The paranasal sinuses and mastoid air cells are clear. The calvarium and skull base are intact. The ventricles and sulci are within normal limits. There is no mass, hematoma, midline shift, or acute infarct. Impression: No acute intracranial abnormality. Electronically signed by: Popeye Klein M.D. 07/22/2016 7:20 PM Dictated Date/Time: 07/22/2016 7:[address] DOSE: 340.84 mGycm HISTORY: Trauma fall TECHNIQUE: Multiaxial CT images of the cervical spine were performed and reformatted in the sagittal and coronal plane without the use of contrast. COMPARISON: None. FINDINGS: No fractures. No subluxation. Prevertebral soft tissues and the C1-C2 interval are intact. No pneumothorax. IMPRESSION: No fractures within the cervical spine. Moderate degenerative change. Electronically signed by: Popeye Klein M.D. 07/22/2016 7:24 PM Dictated Date/Time: 07/22/2016 7:22 PM Laboratory Results 07/22/16 18:55 Red Blood Count 3.98, Mean Corpuscular Volume 89.4, Mean Corpuscular Hemoglobin 28.6, Mean Corpuscular Hemoglobin Concent 32.0, Mean Platelet Volume 11.0, Neutrophils (%) (Auto) 75.0, Lymphocytes (%) (Auto) 14.3, Monocytes (%) (Auto) 8.8, Eosinophils (%) (Auto) 1.4, Basophils (%) (Auto) 0.2, Neutrophils # (Auto) 6.74, Lymphocytes # (Auto) 1.29, Monocytes # (Auto) 0.79, Eosinophils # (Auto) 0.13, Basophils # (Auto) 0.02 07/22/16 18:55 Test 07/22/16 18:55 07/22/16 22:09 07/23/16 00:00 White Blood Count 9.00 K/uL (4.8-10.8) Red Blood Count 3.98 M/uL (4.2-5.4) Hemoglobin 11.4 g/dL (12.0-16.0) Hematocrit 35.6 % (37-47) Mean Corpuscular Volume 89.4 fL (80-100) Mean Corpuscular Hemoglobin 28.6 pg (25-34) Mean Corpuscular Hemoglobin Concent 32.0 g/dl (32-36) Platelet Count 273 K/uL (130-400) Mean Platelet Volume 11.0 fL (7.4-10.4) Neutrophils (%) (Auto) 75.0 % Lymphocytes (%) (Auto) 14.3 % Monocytes (%) (Auto) 8.8 % Eosinophils (%) (Auto) 1.4 % Basophils (%) (Auto) 0.2 % Neutrophils # (Auto) 6.74 K/uL (1.4-6.5) Lymphocytes # (Auto) 1.29 K/uL (1.2-3.4) Monocytes # (Auto) 0.79 K/uL (0.11-0.59) Eosinophils # (Auto) 0.13 K/uL (0-0.5) Basophils # (Auto) 0.02 K/uL (0-0.2) RDW Standard Deviation 45.8 fL (36.4-46.3) RDW Coefficient of Variation 13.9 % (11.5-14.5) Immature Granulocyte % (Auto) 0.3 % Immature Granulocyte # (Auto) 0.03 K/uL (0.00-0.02) D-Dimer 14056 ug/L FEU (0-500) Urine Color YELLOW Urine Appearance CLOUDY (CLEAR) Urine pH 8.0 (4.5-7.5) Urine Specific [place] 1.016 (1.000-1.030) Urine Protein NEG (NEG) Urine Glucose (UA) NEG (NEG) Urine Ketones NEG (NEG) Urine Occult Blood NEG (NEG) Urine Nitrite NEG (NEG) Urine Bilirubin NEG (NEG) Urine Urobilinogen NEG (NEG) Urine Leukocyte Esterase NEG (NEG) Urine WBC (Auto) 1-5 /hpf (0-5) Urine RBC (Auto) 0-4 /hpf (0-4) Urine Hyaline Casts (Auto) 1-5 /lpf (0-5) Urine Epithelial Cells (Auto) 5-10 /lpf (0-5) Urine Bacteria (Auto) 1+ (NEG) Urine Crystals AMORPHOUS SEDIMENT (NONE Urine Mucus PRESENT (NONE PRSENT) Anion Gap 5.0 mmol/L (3-11) Estimated GFR () 55.7 Estimated GFR (Non- 48.1 BUN/Creatinine Ratio 13.2 (10-20) Calcium Level 9.2 mg/dl (8.5-10.1) Total Bilirubin 0.3 mg/dl (0.2-1) Direct Bilirubin 0.1 mg/dl (0-0.2) Aspartate Amino Transf (AST/SGOT) 20 U/L (15-37) Alanine Aminotransferase (ALT/SGPT) 31 U/L (12-78) Alkaline Phosphatase 85 U/L (45-117) Total Protein 7.1 gm/dl (6.4-8.2) Albumin 3.2 gm/dl (3.4-5.0) Lipase 123 U/L (73-393) Venous Blood pH 7.46 (7.36-7.41) Venous Blood Partial Pressure CO2 41 mmHg (38.0-50.0) Venous Blood Partial Pressure O2 59 mmHg Venous Blood HCO3 29 meq/L Venous Blood Oxygen Saturation 89.0 % Venous Blood Base Excess 4.4 mmol/L Laboratory results per my review. Medications Administered Medications (Trade) Dose Ordered Sig/Oscar Route Start Time Stop Time Status Last Admin Dose Admin Oxycodone HCl (Roxicodone Immediate Rel Tab) 5 mg NOW STAT PO 07/22/16 19:37 07/22/16 19:38 DC 07/22/16 19:37 5 MG Acetaminophen (Tylenol Tab) 500 mg NOW STAT PO 07/22/16 19:37 07/22/16 19:38 DC 07/22/16 19:37 500 MG ECG Indication: other (fall ) Rate (beats per minute): 82 Rhythm: sinus rhythm Findings: LBBB, PVC (multiple), Q waves (Septal), left axis deviation, other ( Poor baseline) Comparison ECG Date: May 15, 2016 Change: no significant change ED Course ED COURSE: Vital signs were reviewed and showed hypertensive and hypoxic The patients medical record was reviewed The above diagnostic studies were performed and reviewed. ED treatments and interventions as stated above. 1823: The patient was evaluated in room C1B. A complete history and physical examination was performed. 1904: I revaluated the patient and she was going to have her CT scan. 1936: Ordered Tylenol Tab 500 mg PO, Oxycodone HCl 5 mg PO. 1958: I spoke to Florentino from retirement and he states that the patient has been having more tremors recently and believes her falls are related to her progressing Parkinson's. 2001: I updated the family regarding the results for the patient. 2100: Ordered Oxycodone HCl 5 mg PO. 2110: I reevaluated the patient and she was hypoxic on room and but denies any chest pain or shortness of breath. 2119: I discussed the case with Dr. Ventura [facility]. He agreed to evaluate the patient for further management and care. 2057: Upon reevaluation, the patient is resting comfortably.I discussed my findings with the patient and her family and they understand and agree with the treatment plan. Based on the patients age, coexisting illnesses, exam and lab findings the decision to treat as an inpatient was made.The patient remained stable while under my care.The patient will be evaluated for further management Medical Decision Differential diagnoses include major intracranial, cervical, spinal, thoracic, abdominal, pelvic and neurologic injury. Fracture, contusion, sprain, strain, laceration, abrasions included as well. Patient is a 76-year-old female who presents the ER for recurrent falls from the retirement. She has no complaints with the exception of pain on her coccyx and denies any chest pain or shortness of breath. CT of the head and neck were negative. X-rays of the lumbar spine, pelvis and sacrum and coccyx were negative. Labs including CBC, BMP, LFTs and lipase were negative. Pulse ox did reveal that she was hypoxic and troponin and d-dimer were added on. She had a of a troponin 0.079. D-dimer was elevated and CT PE was performed which showed atelectasis but no PEs. Patient/family were updated at bedside. She was placed on nasal cannula and admitted to internal medicine for further workup. Consults Time Called: 2114 Consulting Physician: Dr. Audrey JOENS Hospitalist Returned Call: [phone] I discussed the case with Dr. Audrey JONES Hospitalist. He agreed to evaluate the patient for further management and care. Impression Primary Impression: Hypoxic Additional Impression: Recurrent falls Scribe Attestation The scribe's documentation has been prepared under my direction and personally reviewed by me in its entirety. I confirm that the note above accurately reflects all work, treatment, procedures, and medical decision making performed by me. Departure Information Dispostion Being Evaluated By Hospitalist Prescriptions Oxycodone Immediate Rel Tab (ROXICODONE IR) 5 Mg Tab 5 MG PO Q6H Y for Pain, #20 TAB Prov: Villa England, DO 07/22/16 Referrals No Doctor, Assigned (PCP) Patient Instructions My [facility] Problem Qualifiers
[2016-07-23] MEDS: METOPROLOL TARTRATE 1 MG/ML VIAL IV. SCH ×5 (01:00→16:55)
[2016-07-23] MEDS: OXYCODONE HCL IR 5 MG TAB (IMMEDIATE RELEASE) PO PRN ×3 (02:08→14:44)
[2016-07-23 04:15] VITALS: BP 170/78; PULSE 68; TEMP 36.7; O2SAT 99
[2016-07-23] MEDS ORDERED: SODIUM CHLORIDE 0.9% 1000ML 1,000 ML IV SCH (06:15)
[2016-07-23] MEDS: CLONIDINE HCL 0.1 MG TAB PO SCH ×3 (06:41→20:38)
[2016-07-23 06:51] LABS: BASO % 0.5 %; BASO ABS # 0.04 K/uL (0-0.2); COMPLETE YES; EOS % 6.8 %; HEMATOCRIT 35.7 % (37-47); IG% 0.2 %; LYMPH % 14.5 %; LYMPH ABS # 1.19 K/uL (1.2-3.4); MEAN CELL VOLUME 89.5 fL (80-100); MEAN CORPUSCULAR HEMOGLOBIN 28.8 pg (25-34); MEAN CORPUSCULAR HGB CONC 32.2 g/dl (32-36); MEAN PLATELET VOLUME 11.2 fL (7.4-10.4); MONO % 12.6 %; NEUT % 65.4 %; PLATELET COUNT 259 K/uL (130-400); RED BLOOD COUNT 3.99 M/uL (4.2-5.4); WHITE BLOOD COUNT 8.18 K/uL (4.8-10.8)
[2016-07-23 07:25] LABS: BUN/CREATININE RATIO 10.1 (10-20); CALCIUM 8.5 mg/dl (8.5-10.1); CREATININE 1.1 mg/dl (0.60-1.20); POTASSIUM 3.7 mmol/L (3.5-5.1)
[2016-07-23 07:34] VITALS: BP 189/72; PULSE 64; TEMP 36.7; O2SAT 96
[2016-07-23] MEDS: MULTIVITAMIN TAB PO SCH (08:16)
[2016-07-23] MEDS: PANTOprazole SOD 40 MG TAB PO SCH (08:16)
[2016-07-23] MEDS: CALCIUM 600MG + VIT D 400 IU TAB PO SCH ×2 (08:16→20:38)
[2016-07-23] MEDS: DOCUSATE SODIUM 100 MG CAP PO SCH (08:16)
[2016-07-23] MEDS ORDERED: ASPIRIN 81 MG ECTAB PO SCH (09:00)
[2016-07-23 10:40] LABS: PARTIAL THROMBOPLASTIN RATIO 1.1; PROTHROMBIN TIME (PATIENT) 11.1 SECONDS (9.0-12.0)
[2016-07-23] MEDS: HEPARIN SOD 5000 UNIT/0.5 ML CARP SQ SCH ×2 (11:00→20:35)
[2016-07-23 11:43] VITALS: BP 187/67; PULSE 80; TEMP 36.8; O2SAT 95
--- NOTE | 2016-07-23 14:20 | Neurology Consultation ---
Neurology Consultation Date of Consultation: July 23, 2016. 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 She presented to the ER after falling earlier in the day using her walker and stumbling backwards onto the carpet. She has some coccyx area pain after falling. She states she made an appointment with Dr Tucker for July 28 because she wanted to talk to him about starting Sinemet. He had recommended this in the past but she was worried about the side effects. She states she is much worse than previous and having more falls and would like to start medications. She is currently walking from the commode to the bed. She has 2 person assistance and is unsteady but car pick up driver her feet when asked to. She was diagnosed with tremor 20-25 years ago but as she aged it became clear it was Parkinson's tremor denies CP, SOB, abdominal pain, one sided numbness tingling weakness, swallow difficulties, occasional food stuck in throat, able to take her pills with applesauce. + constipation, denies incontinence with bladder accept when she is too slow getting to the bathroom. No hallucinations, weight loss. Past Medical/Surgical History Medical Problems: (1) Ambulatory dysfunction Status: Acute (2) Contusion of buttock Status: Acute (3) Hypoxic Status: Acute (4) Recurrent falls Status: Acute Social History Drug Use: none Housing Status: lives with family Occupation Status: retired Allergies Coded Allergies: Diclofenac (Verified Adverse Reaction, Severe, NAUSEA, 05/15/16) Penicillins (Verified Adverse Reaction, Severe, N/V, 05/15/16) Replaces AUGMENTIN 250 Ciprofloxacin (Verified Adverse Reaction, Unknown, "i get irregular heartbeat.", 05/15/16) Current Inpatient Medications Current Inpatient Medications Medications (Trade) Dose Ordered Sig/Oscar Route Start Time Stop Time Status Last Admin Dose Admin Ioversol (Optiray 320) 111 ml UD PRN IV 07/22/16 22:15 07/26/16 22:14 Acetaminophen (Tylenol Tab) 650 mg Q4H PRN PO 07/22/16 22:15 08/21/16 22:14 Aspirin (Ecotrin Tab) 81 mg QAM PO 07/23/16 09:00 08/22/16 08:59 07/23/16 08:16 81 MG Atorvastatin Calcium (Lipitor Tab) 10 mg Q2D PO 07/24/16 09:00 08/23/16 08:59 Clonidine HCl (Catapres Tab) 0.1 mg BID@0700,1600 PO 07/23/16 07:00 08/22/16 06:59 07/23/16 06:41 0.1 MG Docusate Sodium (coLACE CAP) 200 mg QAM PO 07/23/16 09:00 08/22/16 08:59 07/23/16 08:16 200 MG Magnesium Hydroxide (Milk Of Magnesia Susp) 30 ml UD PRN PO 07/22/16 22:45 08/21/16 22:44 Multivitamins (Multivitamin Tab) 1 tab DAILY PO 07/23/16 09:00 08/22/16 08:59 07/23/16 08:16 1 TAB Oxycodone HCl (Roxicodone Immediate Rel Tab) 5 mg Q6H PRN PO 07/22/16 22:45 08/05/16 22:44 07/23/16 06:49 5 MG Pantoprazole Sodium (Protonix Tab) 40 mg DAILY PO 07/23/16 09:00 08/22/16 08:59 07/23/16 08:16 40 MG Spironolactone (Aldactone Tab) 25 mg Q2D PO 07/24/16 09:00 08/23/16 08:59 Calcium/Vitamin D (Caltrate Plus Tab) 1 tab BID PO 07/23/16 09:00 08/22/16 08:59 07/23/16 08:16 1 TAB Clonidine HCl (Catapres Tab) 0.2 mg QPM PO 07/23/16 21:00 08/22/16 20:59 Metoprolol Succinate (Toprol Xl Tab) 100 mg BID PO 07/23/16 09:00 08/22/16 08:59 Future Hold Metoprolol Tartrate (Lopressor Iv) 5 mg Q4 IV. 07/23/16 00:45 08/22/16 00:44 07/23/16 12:26 5 MG Heparin Sodium (Porcine) 5000 unit 5,000 unit Q12 SQ 07/23/16 11:00 08/22/16 10:59 Sodium Chloride (Nss 1000ml) 1,000 ml @ 75 mls/hr [id number] IV 07/23/16 06:15 08/22/16 06:14 07/23/16 06:48 75 MLS/HR Physical Exam Vital Signs (Past 24 Hrs): Date Time Temp Pulse Resp B/P Pulse Ox O2 Delivery O2 Flow Rate FiO2 07/23/16 12:26 70 187/70 07/23/16 12:00 Room Air 07/23/16 11:43 36.8 80 18 187/67 95 Nasal Cannula 2.0 07/23/16 08:15 64 189/70 07/23/16 08:00 Nasal Cannula 1.0 07/23/16 07:34 36.7 64 18 189/72 96 Nasal Cannula 2.0 07/23/16 04:18 82 170/78 07/23/16 04:15 36.7 68 18 170/78 99 Nasal Cannula 2.0 07/23/16 04:00 Nasal Cannula 1.5 07/23/16 01:00 84 179/83 07/23/16 00:00 Nasal Cannula 2.0 07/22/16 23:54 83 18 173/95 96 07/22/16 23:45 36.9 87 20 208/81 94 Nasal Cannula 2.0 07/22/16 22:37 91 18 177/81 96 Room Air 07/22/16 21:09 97 Nasal Cannula 2.0 07/22/16 21:09 85 Room Air 07/22/16 21:09 76 18 177/83 97 Nasal Cannula 2.0 07/22/16 20:34 74 168/97 07/22/16 18:15 36.8 184/78 Room Air Physical Exam: Constitutional: appearance pale ill appearing, mask facies Ears, Nose, Mouth and Throat: mucous membranes moist, no injection and skin normal, eyes normal Cardiovascular: regular Respiratory: clear to auscultation (CTA) and no rales, rhonchi or wheeze Musculoskeletal: no peripheral edema and good distal pulses Skin: no stigmata of neurocutaneous disease noted and normal and intact Eyes: extraocular muscles intact (EOMI) and pupils equal, round and reactive to light (PERRL) NEUROLOGIC EXAMINATION: Mental status: Alert and interactive Oriented location Oriented to person Speech fluent with no evidence of aphasia, weak voice projection Cranial Nerves smile and eye brow raise symmetric, tongue midline Reflexes: Deep tendon reflexes were symmetrical and graded 2/5. Plantar responses were flexor. Sensory: intact to light, cool and vibration Coordination: finger to nose without bipass, spill over essential tremor, resting tremor and cogwheeling Gait/Stance: Posture lying in bed, was transferred from commode to bed. large coccus wound from fall, difficulty positioning self in bed Motor: Negative for pronator drift of out stretched arms with eyes closed. Strength: generalize weakness 4/5 hand refueler, biceps triceps bilaterally, hip flex against gravity not resistance, plantar flex ext bilaterally 5/5 Laboratory Results Past 24 Hours: 07/23/16 06:21 Red Blood Count 3.99, Mean Corpuscular Volume 89.5, Mean Corpuscular Hemoglobin 28.8, Mean Corpuscular Hemoglobin Concent 32.2, Mean Platelet Volume 11.2, Neutrophils (%) (Auto) 65.4, Lymphocytes (%) (Auto) 14.5, Monocytes (%) (Auto) 12.6, Eosinophils (%) (Auto) 6.8, Basophils (%) (Auto) 0.5, Neutrophils # (Auto ) 5.34, Lymphocytes # (Auto) 1.19, Monocytes # (Auto) 1.03, Eosinophils # (Auto ) 0.56, Basophils # (Auto) 0.04 07/23/16 06:21 Test 07/22/16 18:55 07/22/16 22:09 07/23/16 06:21 07/23/16 10:15 D-Dimer 40452 ug/L FEU (0-500) Urine Color YELLOW Urine Appearance CLOUDY (CLEAR) Urine pH 8.0 (4.5-7.5) Urine Specific [place] 1.016 (1.000-1.030) Urine Protein NEG (NEG) Urine Glucose (UA) NEG (NEG) Urine Ketones NEG (NEG) Urine Occult Blood NEG (NEG) Urine Nitrite NEG (NEG) Urine Bilirubin NEG (NEG) Urine Urobilinogen NEG (NEG) Urine Leukocyte Esterase NEG (NEG) Urine WBC (Auto) 1-5 /hpf (0-5) Urine RBC (Auto) 0-4 /hpf (0-4) Urine Hyaline Casts (Auto) 1-5 /lpf (0-5) Urine Epithelial Cells (Auto) 5-10 /lpf (0-5) Urine Bacteria (Auto) 1+ (NEG) Urine Crystals AMORPHOUS SEDIMENT (NONE Urine Mucus PRESENT (NONE PRSENT) Total Bilirubin 0.3 mg/dl (0.2-1) Direct Bilirubin 0.1 mg/dl (0-0.2) Aspartate Amino Transf (AST/SGOT) 20 U/L (15-37) Alanine Aminotransferase (ALT/SGPT) 31 U/L (12-78) Alkaline Phosphatase 85 U/L (45-117) Total Protein 7.1 gm/dl (6.4-8.2) Albumin 3.2 gm/dl (3.4-5.0) Lipase 123 U/L (73-393) Venous Blood pH 7.46 (7.36-7.41) Venous Blood Partial Pressure CO2 41 mmHg (38.0-50.0) Venous Blood Partial Pressure O2 59 mmHg Venous Blood HCO3 29 meq/L Venous Blood Oxygen Saturation 89.0 % Venous Blood Base Excess 4.4 mmol/L White Blood Count 8.18 K/uL (4.8-10.8) Red Blood Count 3.99 M/uL (4.2-5.4) Hemoglobin 11.5 g/dL (12.0-16.0) Hematocrit 35.7 % (37-47) Mean Corpuscular Volume 89.5 fL (80-100) Mean Corpuscular Hemoglobin 28.8 pg (25-34) Mean Corpuscular Hemoglobin Concent 32.2 g/dl (32-36) Platelet Count 259 K/uL (130-400) Mean Platelet Volume 11.2 fL (7.4-10.4) Neutrophils (%) (Auto) 65.4 % Lymphocytes (%) (Auto) 14.5 % Monocytes (%) (Auto) 12.6 % Eosinophils (%) (Auto) 6.8 % Basophils (%) (Auto) 0.5 % Neutrophils # (Auto) 5.34 K/uL (1.4-6.5) Lymphocytes # (Auto) 1.19 K/uL (1.2-3.4) Monocytes # (Auto) 1.03 K/uL (0.11-0.59) Eosinophils # (Auto) 0.56 K/uL (0-0.5) Basophils # (Auto) 0.04 K/uL (0-0.2) RDW Standard Deviation 45.8 fL (36.4-46.3) RDW Coefficient of Variation 13.9 % (11.5-14.5) Immature Granulocyte % (Auto) 0.2 % Immature Granulocyte # (Auto) 0.02 K/uL (0.00-0.02) Anion Gap 4.0 mmol/L (3-11) Est Creatinine Clear Calc Drug Dose 32.3 ml/min Estimated GFR () 55.7 Estimated GFR (Non- 48.1 BUN/Creatinine Ratio 10.1 (10-20) Calcium Level 8.5 mg/dl (8.5-10.1) Troponin I 0.055 ng/ml (0-0.045) Prothrombin Time 11.1 SECONDS (9.0-12.0) Prothromb Time International Ratio 1.0 (0.9-1.1) Activated Partial Thromboplast Time 28.9 SECONDS (21.0-31.0) Partial Thromboplastin Ratio 1.[address]- No fractures within the cervical spine. Moderate degenerative change. CT head- Findings: The paranasal sinuses and mastoid air cells are clear. The calvarium and skull base are intact. The ventricles and sulci are within normal limits. There is no mass, hematoma, midline shift, or acute infarct. Impression 76 year old female s/p fall from tripping on carpet- baseline walker with parkinson's disease not on medications Plan 1. no fracture noted on plan film imaging or PE on CT chest 2. CT head and neck no fracture or hemorrhage 3. cardiology -patient request that cardiology is notified if Sinemet is started 4. will need to start very slowly if Sinemet is offered 5. primary team for increased troponin and d dimmer 6. PT/OT/speech -will need eval 7. may benefit from [facility] 8. further recommendations to follow I have seen and discussed above patient with Dr Araceli Mcmillan, neurology Pt of Dr Tucker's with hx of ET then longstanding sx of PD for which pt was reluctant to take meds. Etiology of fall unknown but likely related to PD. Daughter does confirm there are some cognitive issues. Pt awake alert, mildly cognitively slow. Typical masked facies, prominent resting tremor R>L also with intention tremor. Pt is very bradykinetic, with tendency to turn en bloc. Gait is shuffling with postural instability. Imp PD with ET, start Sinemet with meals , monitor for increased confusion, hallucinations. Pt already admits to nausea so will need to monitor. Dr Tucker will see pt tomorrow. MEAGHAN Mcmillan MD
[2016-07-23 15:30] VITALS: BP 159/62; PULSE 82; TEMP 36.9; O2SAT 90
[2016-07-23] MEDS ORDERED: ONDANSETRON INJ 2 MG/ML 2 ML VIAL ONE (16:52)
[2016-07-23] MEDS ORDERED: NURSING VERBAL MED ORDER ONE ×2 (17:00→20:00)
[2016-07-23] MEDS ORDERED: ONDANSETRON INJ 2 MG/ML 2 ML VIAL IV PRN (17:00)
[2016-07-23 18:50] VITALS: BP 165/73; PULSE 84; TEMP 37.2; O2SAT 92
--- NOTE | 2016-07-23 19:27 | Family Medicine Progress Note ---
Progress Note Date of Service July 23, 2016. Subjective 76-year-old female with past medical history of untreated Parkinson disease presented to the ER with after she fell while using her walker . She had denied any palpitations, dizziness or chest pain prior to the fall In the ER she had a XR of pelvis, lumbar spine, coccyx, CT head and c spine which showed no acute pathology. She was hypoxic to 85% on room air and therefore had a d-dimer > [address] for PE was negative for PE but does show moderate cardiomegaly, moderate bibasal atelectasis and several old rib fractures. Complains about pain in the sacral area but denies any confusion, chest pain, shortness of breath, palpitations Constitutional: No chills, No fever Eyes: No worsening of vision Respiratory: No cough, No shortness of breath, No sputum, No wheezing Cardiovascular: No chest pain Abdomen: No pain Musculoskeletal: + joint pain (sacral area) Female : No dysuria Psychiatric: No depression symptoms Heme: No abnormal bleeding/bruising Medications Current Inpatient Medications Medications (Trade) Dose Ordered Sig/Oscar Route Start Time Stop Time Status Last Admin Dose Admin Ioversol (Optiray 320) 111 ml UD PRN IV 07/22/16 22:15 07/26/16 22:14 Acetaminophen (Tylenol Tab) 650 mg Q4H PRN PO 07/22/16 22:15 08/21/16 22:14 Atorvastatin Calcium (Lipitor Tab) 10 mg Q2D PO 07/24/16 09:00 08/23/16 08:59 07/24/16 07:36 10 MG Clonidine HCl (Catapres Tab) 0.1 mg BID@0700,1600 PO 07/23/16 07:00 08/22/16 06:59 07/24/16 16:10 0.1 MG Docusate Sodium (coLACE CAP) 200 mg QAM PO 07/23/16 09:00 08/22/16 08:59 07/24/16 07:35 200 MG Magnesium Hydroxide (Milk Of Magnesia Susp) 30 ml UD PRN PO 07/22/16 22:45 08/21/16 22:44 Multivitamins (Multivitamin Tab) 1 tab DAILY PO 07/23/16 09:00 08/22/16 08:59 07/24/16 07:33 1 TAB Oxycodone HCl (Roxicodone Immediate Rel Tab) 5 mg Q6H PRN PO 07/22/16 22:45 08/05/16 22:44 07/23/16 14:44 5 MG Pantoprazole Sodium (Protonix Tab) 40 mg DAILY PO 07/23/16 09:00 08/22/16 08:59 07/24/16 07:36 40 MG Spironolactone (Aldactone Tab) 25 mg Q2D PO 07/24/16 09:00 08/23/16 08:59 07/24/16 07:34 25 MG Calcium/Vitamin D (Caltrate Plus Tab) 1 tab BID PO 07/23/16 09:00 08/22/16 08:59 07/24/16 07:32 1 TAB Clonidine HCl (Catapres Tab) 0.2 mg QPM PO 07/23/16 21:00 08/22/16 20:59 07/23/16 20:38 0.2 MG Metoprolol Succinate (Toprol Xl Tab) 100 mg BID PO 07/23/16 09:00 08/22/16 08:59 Future hold 07/24/16 07:32 100 MG Heparin Sodium (Porcine) (Heparin Sq 5000 Unit/0.5ml) 5,000 unit Q12 SQ 07/23/16 11:00 08/22/16 10:59 Ondansetron HCl (Zofran Inj) 4 mg Q8H PRN IV 07/23/16 17:00 08/22/16 16:59 Aspirin (Ecotrin Tab) 162 mg QAM PO 07/24/16 09:00 08/23/16 08:59 07/24/16 07:35 162 MG Lorazepam (Ativan Tab) 0.5 mg BID PO 07/23/16 21:00 08/22/16 20:59 07/24/16 07:42 0.5 MG Carbidopa/Levodopa (Sinemet 25/ 100MG Tab) 1 tab BIDM PO 07/23/16 19:30 08/22/16 19:29 Objective Vital Signs Date Time Temp Pulse Resp B/P Pulse Ox O2 Delivery O2 Flow Rate FiO2 07/24/16 16:36 Room Air 07/24/16 15:12 37.2 69 20 185/87 99 Nasal Cannula 2.0 07/24/16 12:00 Room Air 07/24/16 11:29 94 Room Air 07/24/16 11:21 37.0 60 18 95 2.0 07/24/16 08:00 93 Room Air 07/24/16 07:42 37.1 60 20 168/64 95 Nasal Cannula 2.0 07/24/16 04:10 92 Room Air 07/24/16 03:57 37.0 85 22 186/85 92 Nasal Cannula 2.0 07/24/16 00:00 100 Room Air 07/23/16 23:33 36.9 69 20 125/65 100 Nasal Cannula 2.0 07/23/16 20:00 Room Air 07/23/16 18:50 37.2 84 18 165/73 92 Nasal Cannula 2.0 Physical Exam General Appearance: WD/WN, no apparent distress Eyes: normal inspection ENT: normal ENT inspection, hearing grossly normal Neck: supple Respiratory/Chest: chest non-tender, lungs clear, normal breath sounds, no respiratory distress, no accessory muscle use Cardiovascular: regular rate, rhythm, no edema Abdomen: normal bowel sounds, non tender Neurologic/Psychiatric: + pertinent finding (tremor) Skin: normal color Laboratory Results 07/24/16 10:38 Test 07/24/16 10:38 Red Blood Count 4.27 M/uL (4.2-5.4) Mean Corpuscular Volume 90.2 fL (80-100) Mean Corpuscular Hemoglobin 28.8 pg (25-34) Mean Corpuscular Hemoglobin Concent 31.9 g/dl (32-36) RDW Standard Deviation 46.1 fL (36.4-46.3) RDW Coefficient of Variation 14.0 % (11.5-14.5) Mean Platelet Volume 10.2 fL (7.4-10.4) Troponin I 0.039 ng/ml (0-0.045) Assessment and Plan 76 year old female with untreated Parkinson's disease presents with fall. Fall - Likely secondary to untreated Parkinson's disease - Pelvis x-ray:IMPRESSION: Moderate degenerative change. No acute process. - Lumbar spine x-ray: : Degenerative change. Osteopenia. No acute process. - Coccyx x-ray: no acute changes - Chest x-ray: no acute changes - Head CT: Negative - Lumbar spine CT:No fractures within the cervical spine. Moderate degenerative change. - PT/OT - Neurology consult for untreated Parkinson's Hypoxia: - D-dimer elevated - Chest CTA: . No evidence for pulmonary embolus. 2. Mild bibasilar atelectasis. 3. Moderate cardiomegaly. - Speech consult Coronary artery disease: - Troponins trended overnight with downward trend - Continue aspirin, atorvastatin, metoprolol Parkinsons Disease - Consult neurology - Dr Tucker VTE Prophylaxis - heparin 5000 units Q12H DO NOT RESUSCITATE Disposition: Telemetry Reviewed: Pt Seen/Exam by Me History Resident Physician Supervision Note: I interviewed and examined the patient. Discussed with Dr. Wu and agree with findings and plan as documented in the note. Any exceptions or clarifications are listed here: Patient states she is feeling better. No complaints of pain. She is willing to start on treatment for Parkinson's nail needs placement at rehabilitation. She is open to going to [facility] as her first choice. Seen by speech and recommending video swallow to be arranged for tomorrow. She is off oxygen and no longer hypoxic Telemetry and vitals reviewed No acute distress, thin elderly female Regular rate and rhythm, 1/6 systolic murmur heard best at the left lower sternal border Abdomen soft nontender positive bowel sounds Extremities no edema 76-year-old female with history of Parkinson's disease, paroxysmal A. fib, pacemaker in situ, HTN, HL, CAD, chronic LBBB, osteoporosis, and GERD, who presented to the ED because of a fall and found to have acute hypoxemic respiratory failure in the ER. The fall is mechanical secondary to ambulatory dysfunction from Parkinson's disease. Parkinson's disease, multiple falls, ambulatory dysfunction- PT OT evaluations and SNF placement, appreciate neurology input as far as beginning treatment for Parkinson's Acute hypoxemic respiratory failure-brief, likely related to atelectasis with possible underlying lung disease although CT of the chest fairly unremarkable- resolved HTN, CAD, elevated troponin suspect demand ischemia, Chronic LBBB, h/o pacer, PAF, HL--> asymptomatic, Not on anticoagulation presumably for high fall risk. -trended cardiac markers and mildly elevated but stable - ECHO is from May 2016 with preserved ejection fraction and no wall motion abnormalities - Continue Clonidine, metoprolol, spironolactone - Continue Atorvastatin 10 mg -continue ASA GERD: Continue Protonix daily Osteoporosis- Vit D 47 on 12/2015 -continue MVI H/o left partial nephrectomy for RCC, Chronic right mild-mod hydronephrosis, Nephrolithiasis- seen on recent CT scan as outpt -stable, follows with Urology routinely Pancreatic cyst/Sidebranch IPMN 7 mm-stable on recent CT Right ovarian solid mass 4.1 cm -stable from previous -Is followed by [facility] Bronchiectasis in RML, lingula on recent CT abd/pel earlier this year- asymptomatic -Followed by pulmonary supposedly as an outpatient DVT prophylaxis: Heparin subcutaneous Dispo: SNF placement Documented By: Edie Haider Resident Tracking Resident Involvement: Resident Care Provided Care Provided: Adult Hospital Medicine
[2016-07-23] MEDS: CARBIDOPA/LEVODOPA 25/100MG TAB PO SCH (19:30)
[2016-07-23] MEDS: LORAZEPAM 0.5 MG TAB PO SCH (20:38)
[2016-07-23] MEDS: METOPROLOL SUCC 50MG EXT REL TAB PO SCH (21:51)
[2016-07-23 23:33] VITALS: BP 125/65; PULSE 69; TEMP 36.9; O2SAT 100
[2016-07-24] VITALS (12 sets, daily range): BP systolic 147–186; BP diastolic 64–87; PULSE 60–85; TEMP 36.2–37.2; O2SAT 92–100
[2016-07-24] MEDS: CARBIDOPA/LEVODOPA 25/100MG TAB PO SCH ×3 (07:30→16:11)
[2016-07-24] MEDS: METOPROLOL SUCC 50MG EXT REL TAB PO SCH ×2 (07:32→20:21)
[2016-07-24] MEDS: CALCIUM 600MG + VIT D 400 IU TAB PO SCH ×2 (07:32→20:20)
[2016-07-24] MEDS: MULTIVITAMIN TAB PO SCH (07:33)
[2016-07-24] MEDS: CLONIDINE HCL 0.1 MG TAB PO SCH ×3 (07:33→20:21)
[2016-07-24] MEDS: SPIRONOLACTONE 25 MG TAB PO SCH (07:34)
[2016-07-24] MEDS: ASPIRIN 81 MG ECTAB PO SCH (07:35)
[2016-07-24] MEDS: DOCUSATE SODIUM 100 MG CAP PO SCH (07:35)
[2016-07-24] MEDS: ATORVASTATIN 10 MG TAB PO SCH (07:36)
[2016-07-24] MEDS: PANTOprazole SOD 40 MG TAB PO SCH (07:36)
[2016-07-24] MEDS: HEPARIN SOD 5000 UNIT/0.5 ML CARP SQ SCH ×3 (07:38→20:20)
[2016-07-24] MEDS: LORAZEPAM 0.5 MG TAB PO SCH ×2 (07:42→20:21)
--- NOTE | 2016-07-24 08:33 | Clinical Documentation Query ---
[facility] : CLINICAL DOCUMENTATION QUERY Patient is a 76 year old female admitted for evaluation and treatment of untreated Parkinson's disease and repeated falls. ED provider exam notes patient is "malnourished and cachectic". Attending physician documented "weight loss". She has lost 4.9 Kg representing 9.2% of original body weight since 05/18/16. BMI is only 18.4 Kg/m*m. Intake < 50% at meals per census taker consultation. She is to be provided supplements, MVI & Ca++ w/Vitamin D, feeding assistance as needed, and daily weights. Per provided clinical indicators, as appropriate, please consider documentation as suggested below as this directly impacts DRG assignment. Thank you. In your clinical opinion is this patient being managed for: ( x ) Severe protein-calorie malnutrition ( ) Other explanation of clinical findings (Please Explain) ( ) Unable to determine (Please Define) ( ) Need to Discuss ( ) Not Agree The medical record reflects the following clinical findings, treatment, and risk factors. Clinical Indicators: As above, ED provider exam notes patient is "malnourished and cachectic". Attending physician documented "weight loss". She has lost 4.9 Kg representing 9.2% of original body weight since 05/18/16. BMI is only 18.4 Kg/m*m. Intake < 50% at meals per census taker consultation. Treatment: She is to be provided supplements, MVI & Ca++ w/Vitamin D, feeding assistance as needed, and daily weights Risk Factors: Age, Parkinson's disease Please clarify and document your clinical opinion in the progress notes and discharge summary. Terms such as "probable", "suspected", "likely", "questionable", "possible", or "still to be ruled out" are acceptable. IF IN AGREEMENT, YOU MUST DOCUMENT ABOVE DIAGNOSTIC STATEMENT IN DAILY PROGRESS NOTES AND DISCHARGE SUMMARY. This document is not part of the patient's record. Thank You, Onel Dunne, SADE [phone]
--- NOTE | 2016-07-24 08:34 | Clinical Documentation Query ---
Dr. [facility] : CLINICAL DOCUMENTATION QUERY Patient is a 76 year old female admitted for evaluation and treatment of untreated Parkinson's disease and repeated falls. ED provider exam notes patient is "malnourished and cachectic". Attending physician documented "weight loss". She has lost 4.9 Kg representing 9.2% of original body weight since 05/18/16. BMI is only 18.4 Kg/m*m. Intake < 50% at meals per inseminator consultation. She is to be provided supplements, MVI & Ca++ w/Vitamin D, feeding assistance as needed, and daily weights. Per provided clinical indicators, as appropriate, please consider documentation as suggested below as this directly impacts DRG assignment. Thank you. In your clinical opinion is this patient being managed for: ( ) Severe protein-calorie malnutrition ( ) Other explanation of clinical findings (Please Explain) ( ) Unable to determine (Please Define) ( ) Need to Discuss ( ) Not Agree The medical record reflects the following clinical findings, treatment, and risk factors. Clinical Indicators: As above, ED provider exam notes patient is "malnourished and cachectic". Attending physician documented "weight loss". She has lost 4.9 Kg representing 9.2% of original body weight since 05/18/16. BMI is only 18.4 Kg/m*m. Intake < 50% at meals per inseminator consultation. Treatment: She is to be provided supplements, MVI & Ca++ w/Vitamin D, feeding assistance as needed, and daily weights Risk Factors: Age, Parkinson's disease Please clarify and document your clinical opinion in the progress notes and discharge summary. Terms such as "probable", "suspected", "likely", "questionable", "possible", or "still to be ruled out" are acceptable. IF IN AGREEMENT, YOU MUST DOCUMENT ABOVE DIAGNOSTIC STATEMENT IN DAILY PROGRESS NOTES AND DISCHARGE SUMMARY. This document is not part of the patient's record. Thank You, Onel Dunne, RN [phone]
[2016-07-24 10:46] LABS: HEMATOCRIT 38.5 % (37-47); MEAN CELL VOLUME 90.2 fL (80-100); MEAN CORPUSCULAR HEMOGLOBIN 28.8 pg (25-34); MEAN CORPUSCULAR HGB CONC 31.9 g/dl (32-36); MEAN PLATELET VOLUME 10.2 fL (7.4-10.4); PLATELET COUNT 295 K/uL (130-400); RED BLOOD COUNT 4.27 M/uL (4.2-5.4); WHITE BLOOD COUNT 8.89 K/uL (4.8-10.8)
--- NOTE | 2016-07-24 11:56 | DIAGNOSTIC IMAGING REPORT ---
VIDEO SWALLOW HISTORY: Parkinson's disease. Dysphagia. TECHNIQUE: Video fluoroscopic evaluation of swallowing was performed in the AP and lateral projections by the speech pathology staff. The patient is fed nectar-thick and thin liquid barium, a barium coated wafer, and barium pudding. FLUOROSCOPY TIME: 3.1 minutes. COMPARISON STUDY: None. FINDINGS: With swallowing thin liquid barium, there is delayed initiation of swallow and piriform sinus retention. There is no aspiration or penetration. There is no aspiration or penetration with slight nectar thick liquids. When swallowing pudding there was no aspiration but there is heavy vallecular retention. When swallowing a cracker with paste, there was no aspiration or penetration. There is disordered esophageal motility. IMPRESSION: 1. No aspiration or penetration identified. Disordered esophageal motility. Vallecular and piriform sinus retention 2. Please see the speech pathologist report for detailed findings and recommendations. Electronically signed by: Mihir Woods M.D. 07/24/2016 11:55 AM Dictated Date/Time: 07/24/2016 11:53 AM
--- NOTE | 2016-07-24 14:21 | Neurology Progress Notes ---
Neurology Progress Note Date of Service July 24, 2016. 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 She presented to the ER after falling earlier in the day using her walker and stumbling backwards onto the carpet. She has some coccyx area pain after falling. She states she made an appointment with Dr Tucker for July 28 because she wanted to talk to him about starting Sinemet. He had recommended this in the past but she was worried about the side effects. She states she is much worse than previous and having more falls and would like to start medications. She is currently walking from the commode to the bed. She has 2 person assistance and is unsteady but grape picker her feet when asked to. She was diagnosed with tremor 20-25 years ago but as she aged it became clear it was Parkinson's tremor denies CP, SOB, abdominal pain, one sided numbness tingling weakness, swallow difficulties, occasional food stuck in throat, able to take her pills with applesauce. + constipation, She stated she would start Sinemet when seen yesterday but today she states she refused it. She wants to talk to Dr Tucker and her cardiology first. Her son is in the room and concerned about her falls. he thinks she should start the medications but discussed it is up to her. denies incontinence with bladder accept when she is too slow getting to the bathroom. No hallucinations, weight loss. Objective Date Time Temp Pulse Resp B/P Pulse Ox O2 Delivery O2 Flow Rate FiO2 07/24/16 11:29 94 Room Air 07/24/16 11:21 37.0 60 18 95 2.0 07/24/16 08:00 93 Room Air 07/24/16 07:42 37.1 60 20 168/64 95 Nasal Cannula 2.0 07/24/16 04:10 92 Room Air 07/24/16 03:57 37.0 85 22 186/85 92 Nasal Cannula 2.0 07/24/16 00:00 100 Room Air 07/23/16 23:33 36.9 69 20 125/65 100 Nasal Cannula 2.0 07/23/16 20:00 Room Air 07/23/16 18:50 37.2 84 18 165/73 92 Nasal Cannula 2.0 07/23/16 16:55 82 159/62 07/23/16 16:00 Room Air 07/23/16 15:30 36.9 82 18 159/62 90 Room Air Last 24 Hours Test 07/24/16 10:38 White Blood Count 8.89 K/uL Red Blood Count 4.27 M/uL Hemoglobin 12.3 g/dL Hematocrit 38.5 % Mean Corpuscular Volume 90.2 fL Mean Corpuscular Hemoglobin 28.8 pg Mean Corpuscular Hemoglobin Concent 31.9 g/dl RDW Standard Deviation 46.1 fL RDW Coefficient of Variation 14.0 % Platelet Count 295 K/uL Mean Platelet Volume 10.2 fL Troponin I 0.039 ng/ml Imaging: no new imaging Exam: Physical Exam: Constitutional: appearance thin pale Ears, Nose, Mouth and Throat: mucous membranes moist, no injection and skin normal, eyes decrease blink, mask facies Cardiovascular: irregular irregular Respiratory: clear to auscultation (CTA) and no rales, rhonchi or wheeze Musculoskeletal: no peripheral edema Skin: no stigmata of neurocutaneous disease noted and normal and intact Eyes: extraocular muscles intact (EOMI) and pupils equal, round and reactive to light (PERRL) NEUROLOGIC EXAMINATION: Mental status: Alert and interactive Oriented to full date and location Oriented to person Speech fluent with no evidence of aphasia Cranial Nerves smile eye brow raise symmetric, tongue midline coordination: finger to nose without bi pass, resting tremor bi laterally right > left Gait/Stance: Posture sitting bedside Motor: Negative for pronator drift of out stretched arms with eyes closed. Strength: biceps triceps hand hearing aid fitter 5/5 bilaterally, hip flex 4+/5 Current Inpatient Medications Medications (Trade) Dose Ordered Sig/Oscar Route Start Time Stop Time Status Last Admin Dose Admin Ioversol (Optiray 320) 111 ml UD PRN IV 07/22/16 22:15 07/26/16 22:14 Acetaminophen (Tylenol Tab) 650 mg Q4H PRN PO 07/22/16 22:15 08/21/16 22:14 Atorvastatin Calcium (Lipitor Tab) 10 mg Q2D PO 07/24/16 09:00 08/23/16 08:59 07/24/16 07:36 10 MG Clonidine HCl (Catapres Tab) 0.1 mg BID@0700,1600 PO 07/23/16 07:00 08/22/16 06:59 07/24/16 07:33 0.1 MG Docusate Sodium (coLACE CAP) 200 mg QAM PO 07/23/16 09:00 08/22/16 08:59 07/24/16 07:35 200 MG Magnesium Hydroxide (Milk Of Magnesia Susp) 30 ml UD PRN PO 07/22/16 22:45 08/21/16 22:44 Multivitamins (Multivitamin Tab) 1 tab DAILY PO 07/23/16 09:00 08/22/16 08:59 07/24/16 07:33 1 TAB Oxycodone HCl (Roxicodone Immediate Rel Tab) 5 mg Q6H PRN PO 07/22/16 22:45 08/05/16 22:44 07/23/16 14:44 5 MG Pantoprazole Sodium (Protonix Tab) 40 mg DAILY PO 07/23/16 09:00 08/22/16 08:59 07/24/16 07:36 40 MG Spironolactone (Aldactone Tab) 25 mg Q2D PO 07/24/16 09:00 08/23/16 08:59 07/24/16 07:34 25 MG Calcium/Vitamin D (Caltrate Plus Tab) 1 tab BID PO 07/23/16 09:00 08/22/16 08:59 07/24/16 07:32 1 TAB Clonidine HCl (Catapres Tab) 0.2 mg QPM PO 07/23/16 21:00 08/22/16 20:59 07/23/16 20:38 0.2 MG Metoprolol Succinate (Toprol Xl Tab) 100 mg BID PO 07/23/16 09:00 08/22/16 08:59 Future hold 07/24/16 07:32 100 MG Heparin Sodium (Porcine) (Heparin Sq 5000 Unit/0.5ml) 5,000 unit Q12 SQ 07/23/16 11:00 08/22/16 10:59 Ondansetron HCl (Zofran Inj) 4 mg Q8H PRN IV 07/23/16 17:00 08/22/16 16:59 Aspirin (Ecotrin Tab) 162 mg QAM PO 07/24/16 09:00 08/23/16 08:59 07/24/16 07:35 162 MG Lorazepam (Ativan Tab) 0.5 mg BID PO 07/23/16 21:00 08/22/16 20:59 07/24/16 07:42 0.5 MG Carbidopa/Levodopa (Sinemet 25/ 100MG Tab) 1 tab BIDM PO 07/23/16 19:30 08/22/16 19:29 Impression 76 year old female s/p fall from tripping on carpet- baseline walker with parkinson's disease not on medications Plan 1. no fracture noted on plan film imaging or PE on CT chest 2. CT head and neck no fracture or hemorrhage 3. cardiology -patient request that cardiology is notified if Sinemet is started 4. will need to start very slowly if Sinemet is offered- Dr Tucker will offer 25 /100 mg 1/2 tab bid to start 5. primary team for increased troponin and d dimmer 6. PT/OT/speech -will need eval 7. may benefit from [facility] Will follow neurology clinic with Dr Tucker as out patient I have seen and discussed above patient with Dr Cristian Tucker, neurology I have seen this woman for years and have repeatedly recommended rx for her parkinsons but she has successfully resisted up to now when she is finally willing to at least try low dose rx She wants cardilogy to be aware of her starting this and we certainly will keep Dr Bishop in the loop but frankly do not see the need to actually have him clear her and we can watch for hypotension etc while she is here on monitoring I will check back tomorrow agree with the above plan Cristian Tucker MD
--- NOTE | 2016-07-24 17:41 | Family Medicine Progress Note ---
Progress Note Date of Service July 24, 2016. Subjective Pt evaluation today including: conversation w/ patient, physical exam, chart review, lab review Pain: continues to complain of sacral pain Voiding: no voiding problems 76-year-old female with past medical history of untreated Parkinson disease presented to the ER with after she fell while using her walker . She had denied any palpitations, dizziness or chest pain prior to the fall In the ER she had a XR of pelvis, lumbar spine, coccyx, CT head and c spine which showed no acute pathology. She was hypoxic to 85% on room air and therefore had a d-dimer > [address] for PE was negative for PE but does show moderate cardiomegaly, moderate bibasal atelectasis and several old rib fractures. Complains about pain in the sacral area but denies any confusion, chest pain, shortness of breath, palpitations. She was prescribed Sinemet by neurology but she refuses to take it before meeting with Dr. Tucker Constitutional: No chills, No fever Eyes: No worsening of vision Respiratory: No cough, No sputum Cardiovascular: No chest pain Abdomen: No nausea, No pain Musculoskeletal: + joint pain (sacral pain) Female : No dysuria Psychiatric: No depression symptoms Medications Current Inpatient Medications Medications (Trade) Dose Ordered Sig/Oscar Route Start Time Stop Time Status Last Admin Dose Admin Ioversol (Optiray 320) 111 ml UD PRN IV 07/22/16 22:15 07/26/16 22:14 Acetaminophen (Tylenol Tab) 650 mg Q4H PRN PO 07/22/16 22:15 08/21/16 22:14 Atorvastatin Calcium (Lipitor Tab) 10 mg Q2D PO 07/24/16 09:00 08/23/16 08:59 07/24/16 07:36 10 MG Clonidine HCl (Catapres Tab) 0.1 mg BID@0700,1600 PO 07/23/16 07:00 08/22/16 06:59 07/24/16 16:10 0.1 MG Docusate Sodium (coLACE CAP) 200 mg QAM PO 07/23/16 09:00 08/22/16 08:59 07/24/16 07:35 200 MG Magnesium Hydroxide (Milk Of Magnesia Susp) 30 ml UD PRN PO 07/22/16 22:45 08/21/16 22:44 Multivitamins (Multivitamin Tab) 1 tab DAILY PO 07/23/16 09:00 08/22/16 08:59 07/24/16 07:33 1 TAB Oxycodone HCl (Roxicodone Immediate Rel Tab) 5 mg Q6H PRN PO 07/22/16 22:45 08/05/16 22:44 07/23/16 14:44 5 MG Pantoprazole Sodium (Protonix Tab) 40 mg DAILY PO 07/23/16 09:00 08/22/16 08:59 07/24/16 07:36 40 MG Spironolactone (Aldactone Tab) 25 mg Q2D PO 07/24/16 09:00 08/23/16 08:59 07/24/16 07:34 25 MG Calcium/Vitamin D (Caltrate Plus Tab) 1 tab BID PO 07/23/16 09:00 08/22/16 08:59 07/24/16 07:32 1 TAB Clonidine HCl (Catapres Tab) 0.2 mg QPM PO 07/23/16 21:00 08/22/16 20:59 07/23/16 20:38 0.2 MG Metoprolol Succinate (Toprol Xl Tab) 100 mg BID PO 07/23/16 09:00 08/22/16 08:59 Future hold 07/24/16 07:32 100 MG Heparin Sodium (Porcine) (Heparin Sq 5000 Unit/0.5ml) 5,000 unit Q12 SQ 07/23/16 11:00 08/22/16 10:59 Ondansetron HCl (Zofran Inj) 4 mg Q8H PRN IV 07/23/16 17:00 08/22/16 16:59 Aspirin (Ecotrin Tab) 162 mg QAM PO 07/24/16 09:00 08/23/16 08:59 07/24/16 07:35 162 MG Lorazepam (Ativan Tab) 0.5 mg BID PO 07/23/16 21:00 08/22/16 20:59 07/24/16 07:42 0.5 MG Carbidopa/Levodopa (Sinemet 25/ 100MG Tab) 1 tab BIDM PO 07/23/16 19:30 08/22/16 19:29 Objective Vital Signs Date Time Temp Pulse Resp B/P Pulse Ox O2 Delivery O2 Flow Rate FiO2 07/24/16 16:36 Room Air 07/24/16 15:12 37.2 69 20 185/87 99 Nasal Cannula 2.0 07/24/16 12:00 Room Air 07/24/16 11:29 94 Room Air 07/24/16 11:21 37.0 60 18 95 2.0 07/24/16 08:00 93 Room Air 07/24/16 07:42 37.1 60 20 168/64 95 Nasal Cannula 2.0 07/24/16 04:10 92 Room Air 07/24/16 03:57 37.0 85 22 186/85 92 Nasal Cannula 2.0 07/24/16 00:00 100 Room Air 07/23/16 23:33 36.9 69 20 125/65 100 Nasal Cannula 2.0 07/23/16 20:00 Room Air 07/23/16 18:50 37.2 84 18 165/73 92 Nasal Cannula 2.0 Physical Exam General Appearance: WD/WN, no apparent distress Eyes: normal inspection ENT: normal ENT inspection, hearing grossly normal Neck: supple Respiratory/Chest: chest non-tender, lungs clear, normal breath sounds, no accessory muscle use Cardiovascular: regular rate, rhythm Abdomen: normal bowel sounds, soft Extremities: no pedal edema Neurologic/Psychiatric: alert, normal mood/affect, oriented x 3, + pertinent finding (tremors) Skin: normal color Laboratory Results 07/24/16 10:38 Test 07/24/16 10:38 Red Blood Count 4.27 M/uL (4.2-5.4) Mean Corpuscular Volume 90.2 fL (80-100) Mean Corpuscular Hemoglobin 28.8 pg (25-34) Mean Corpuscular Hemoglobin Concent 31.9 g/dl (32-36) RDW Standard Deviation 46.1 fL (36.4-46.3) RDW Coefficient of Variation 14.0 % (11.5-14.5) Mean Platelet Volume 10.2 fL (7.4-10.4) Troponin I 0.039 ng/ml (0-0.045) Assessment and Plan 76 year old female with untreated Parkinson's disease presents with fall. Fall - Likely secondary to untreated Parkinson's disease - Pelvis x-ray:IMPRESSION: Moderate degenerative change. No acute process. - Lumbar spine x-ray: : Degenerative change. Osteopenia. No acute process. - Coccyx x-ray: no acute changes - Chest x-ray: no acute changes - Head CT: Negative - Lumbar spine CT:No fractures within the cervical spine. Moderate degenerative change. - PT/OT - Neurology consult for untreated Parkinson's Hypoxia: - D-dimer elevated - Chest CTA: . No evidence for pulmonary embolus. 2. Mild bibasilar atelectasis. 3. Moderate cardiomegaly. - Speech consult - Video swallow done today- No aspiration or penetration identified. Disordered esophageal motility. Vallecular and piriform sinus retention Speech recommendations- 1.SLIPPERY mechanical soft diet 2.Aspiration precautions: Fully upright, straws okay, remain upright 15-30 minutes after meal completed, alternate solids with liquids 3.Consideration of f/u with WOOLING MACHINE OPERATOR services at the [facility] or SNF to which she is discharged for both dysphagia and voice therapies. These therapies will be a long-term process for the patient as she continues in this disease process. 4. If the patient were to initiate use of medications in treatment of the Parkinson's disease, this may affect her swallowing function. WOOLING MACHINE OPERATOR services at patient's residence should be notified of the initiation of medication and follow-up. Coronary artery disease: - Troponins trended overnight with downward trend - Continue aspirin, atorvastatin, metoprolol Uncontrolled hypertension - Continue home meds Parkinsons Disease - Consult neurology - Dr Tucker VTE Prophylaxis - heparin 5000 units Q12H DO NOT RESUSCITATE Disposition: Telemetry Reviewed: Pt Seen/Exam by Me History Resident Physician Supervision Note: I interviewed and examined the patient. Discussed with Dr. Wu and agree with findings and plan as documented in the note. Any exceptions or clarifications are listed here: Patient refuses to take Sinemet yesterday as prescribed by neurology, wants to speak to her primary neurologist today before starting. Telemetry and vitals reviewed No acute distress, thin elderly female Regular rate and rhythm, 1/6 systolic murmur heard best at the left lower sternal border Abdomen soft nontender positive bowel sounds Extremities no edema Neurology-resting tremor and with bradykinesia and masked facies 76-year-old female with history of Parkinson's disease, paroxysmal A. fib, pacemaker in situ, HTN, HL, CAD, chronic LBBB, osteoporosis, and GERD, who presented to the ED because of a fall and found to have acute hypoxemic respiratory failure in the ER. The fall is mechanical secondary to ambulatory dysfunction from Parkinson's disease. Parkinson's disease, multiple falls, ambulatory dysfunction- PT OT evaluations and SNF placement, appreciate neurology input as far as beginning treatment for Parkinson's -Hopeful to start Sinemet tomorrow and will watch for orthostatic hypotension Acute hypoxemic respiratory failure-brief, likely related to atelectasis with possible underlying lung disease although CT of the chest fairly unremarkable- resolved HTN, CAD, elevated troponin suspect demand ischemia, Chronic LBBB, h/o pacer, PAF, HL--> asymptomatic, Not on anticoagulation presumably for high fall risk. Blood pressure not well controlled but will not increase meds at this time as she is about to start Sinemet which can cause orthostatic hypotension -trended cardiac markers and mildly elevated but stable - ECHO is from May 2016 with preserved ejection fraction and no wall motion abnormalities - Continue Clonidine, metoprolol, spironolactone - Continue Atorvastatin 10 mg -continue ASA GERD: Continue Protonix daily Osteoporosis- Vit D 47 on 12/2015 -continue MVI H/o left partial nephrectomy for RCC, Chronic right mild-mod hydronephrosis, Nephrolithiasis- seen on recent CT scan as outpt -stable, follows with Urology routinely Pancreatic cyst/Sidebranch IPMN 7 mm-stable on recent CT Right ovarian solid mass 4.1 cm -stable from previous -Is followed by BOOK EDITOR Bronchiectasis in RML, lingula on recent CT abd/pel earlier this year- asymptomatic -Followed by pulmonary supposedly as an outpatient DVT prophylaxis: Heparin subcutaneous Dispo: SNF placement Documented By: Edie Haider
[2016-07-24] MEDS: OXYCODONE HCL IR 5 MG TAB (IMMEDIATE RELEASE) PO PRN (20:22)
[2016-07-25] MEDS: OXYCODONE HCL IR 5 MG TAB (IMMEDIATE RELEASE) PO PRN (06:10)
[2016-07-25] MEDS: CLONIDINE HCL 0.1 MG TAB PO SCH ×3 (06:12→20:29)
[2016-07-25 07:33] VITALS: BP 120/68; PULSE 69; TEMP 36.4; O2SAT 97
[2016-07-25] MEDS: ASPIRIN 81 MG ECTAB PO SCH (08:20)
[2016-07-25] MEDS: LORAZEPAM 0.5 MG TAB PO SCH ×2 (08:20→20:28)
[2016-07-25] MEDS: METOPROLOL SUCC 50MG EXT REL TAB PO SCH ×2 (08:20→20:29)
[2016-07-25] MEDS: HEPARIN SOD 5000 UNIT/0.5 ML CARP SQ SCH ×2 (08:21→20:30)
[2016-07-25] MEDS: PANTOprazole SOD 40 MG TAB PO SCH (08:21)
[2016-07-25] MEDS: MULTIVITAMIN TAB PO SCH (08:21)
[2016-07-25] MEDS: DOCUSATE SODIUM 100 MG CAP PO SCH (08:22)
[2016-07-25] MEDS: CALCIUM 600MG + VIT D 400 IU TAB PO SCH ×2 (08:22→20:30)
[2016-07-25] MEDS: CARBIDOPA/LEVODOPA 25/100MG TAB PO SCH ×2 (09:06→20:00)
--- NOTE | 2016-07-25 10:51 | Hospitalist Progress Note ---
Hospitalist Progress Note Date of Service July 25, 2016. Subjective Pt evaluation today including: conversation w/ patient Still with some coccyx pain. Is willing to start Sinemet 1/2 tab bid today as per d/w Neuro All Other Systems: Reviewed and Negative Objective Vital Signs Date Time Temp Pulse Resp B/P Pulse Ox O2 Delivery O2 Flow Rate FiO2 07/25/16 07:33 36.4 69 18 120/68 97 Nasal Cannula 2.0 07/24/16 23:41 36.2 69 18 155/77 98 Room Air 07/24/16 23:14 Nasal Cannula 2.0 07/24/16 18:20 37.2 66 20 99 2.0 07/24/16 18:15 36.7 78 18 147/73 98 Nasal Cannula 2.0 07/24/16 18:03 66 162/69 07/24/16 16:36 Room Air 07/24/16 15:12 37.2 69 20 185/87 99 Nasal Cannula 2.0 07/24/16 12:00 Room Air 07/24/16 11:29 94 Room Air 07/24/16 11:21 37.0 60 18 95 2.0 Physical Exam General Appearance: no apparent distress, + thin Eyes: normal inspection, sclerae normal ENT: hearing grossly normal Neck: trachea midline Respiratory/Chest: lungs clear, normal breath sounds, no respiratory distress, no accessory muscle use Cardiovascular: regular rate, rhythm, no edema, no murmur Abdomen: normal bowel sounds, non tender, soft, no organomegaly Extremities: no calf tenderness Neurologic/Psychiatric: alert, + pertinent finding (masked facies, resting tremor) Skin: normal color, warm/dry Assessment and Plan 76-year-old female with history of Parkinson's disease, paroxysmal A. fib, pacemaker in situ, HTN, HL, CAD, chronic LBBB, osteoporosis, and GERD, who presented to the ED because of a fall and found to have acute hypoxemic respiratory failure in the ER. The fall is mechanical secondary to ambulatory dysfunction from Parkinson's disease. Parkinson's disease, multiple falls, ambulatory dysfunction- Pelvis x-ray:IMPRESSION: Moderate degenerative change. No acute process. - Lumbar spine x-ray: : Degenerative change. Osteopenia. No acute process. - Coccyx x-ray: no acute changes - Chest x-ray: no acute changes - Head CT: Negative - Lumbar spine CT:No fractures within the cervical spine. Moderate degenerative change. PT OT evaluations and SNF placement, appreciate neurology input as far as beginning treatment for Parkinson's -starting Sinemet 1/2 tab bid today as per Neuro and pt agreeable--> increase very slowly as tolerated Acute hypoxemic respiratory failure-brief, likely related to atelectasis with possible underlying lung disease although CT of the chest fairly unremarkable despite elevated [id number] HTN, CAD, elevated troponin suspect demand ischemia, Chronic LBBB, h/o pacer, PAF, HL--> asymptomatic, Not on anticoagulation presumably for high fall risk. BP improved control today -trended cardiac markers and mildly elevated but stable - ECHO is from May 2016 with preserved ejection fraction and no wall motion abnormalities - Continue Clonidine, metoprolol, spironolactone - Continue Atorvastatin 10 mg -continue ASA GERD: Continue Protonix daily Osteoporosis- Vit D 47 on 12/2015 -continue MVI H/o left partial nephrectomy for RCC, Chronic right mild-mod hydronephrosis, Nephrolithiasis- seen on recent CT scan as outpt -stable, follows with Urology routinely Pancreatic cyst/Sidebranch IPMN 7 mm-stable on recent CT Right ovarian solid mass 4.1 cm -stable from previous -Is followed by SENIOR SOLUTIONS ARCHITECT Bronchiectasis in RML, lingula on recent CT abd/pel earlier this year- asymptomatic -Followed by pulmonary supposedly as an outpatient DVT prophylaxis: Heparin subcutaneous Dispo: SNF placement tomorrow
--- NOTE | 2016-07-25 11:28 | PROGRESS NOTE ---
DATE: 07/25/2016 DATE: 07/25/2016. Shakila has been moved up to room 412. There was a mixup apparently on her Sinemet orders. I had thought we were going to start her on half of 25/100 tablet twice a day, but apparently this did not occur and the original order for full tablet twice a day was given and she refused to take it. Today of course she looks about the same with a resting tremor, rigidity, some cogwheeling, all typical of advancing Parkinson's disease and she as usual is reluctant to accept these medications, so I think I am going to change the order back to half a tablet with breakfast and half a tablet with supper twice a day for a while to see how she tolerates it and I will check back with her tomorrow. It looks like discharge plans are still a little bit up in the air and we may have a few days here to at least get the medications started. Thus far, there have been no change in her blood pressure and her general health has been fine with the exception of the pain following the fall and she is going to need some rehabilitation time, I believe. I will check with her again tomorrow.
[2016-07-25 15:36] VITALS: BP 161/76; PULSE 72; TEMP 36.7; O2SAT 98
[2016-07-25 20:25] VITALS: BP 173/74; PULSE 72
[2016-07-25 23:23] VITALS: BP 114/70; PULSE 69; TEMP 36.9; O2SAT 99
[2016-07-26 05:46] LABS: HEMATOCRIT 33.1 % (37-47); MEAN CELL VOLUME 89.9 fL (80-100); MEAN CORPUSCULAR HEMOGLOBIN 28.3 pg (25-34); MEAN CORPUSCULAR HGB CONC 31.4 g/dl (32-36); MEAN PLATELET VOLUME 10.4 fL (7.4-10.4); PLATELET COUNT 268 K/uL (130-400); RED BLOOD COUNT 3.68 M/uL (4.2-5.4); WHITE BLOOD COUNT 8.23 K/uL (4.8-10.8)
[2016-07-26 07:32] VITALS: BP 132/65; PULSE 70; TEMP 36.6; O2SAT 100
[2016-07-26] MEDS: METOPROLOL SUCC 50MG EXT REL TAB PO SCH (07:35)
[2016-07-26] MEDS: ATORVASTATIN 10 MG TAB PO SCH (07:35)
[2016-07-26] MEDS: ASPIRIN 81 MG ECTAB PO SCH (07:35)
[2016-07-26] MEDS: CALCIUM 600MG + VIT D 400 IU TAB PO SCH (07:36)
[2016-07-26] MEDS: CARBIDOPA/LEVODOPA 25/100MG TAB PO SCH (07:36)
[2016-07-26] MEDS: CLONIDINE HCL 0.1 MG TAB PO SCH ×2 (07:36→15:23)
[2016-07-26] MEDS: DOCUSATE SODIUM 100 MG CAP PO SCH (07:36)
[2016-07-26] MEDS: MULTIVITAMIN TAB PO SCH (07:37)
[2016-07-26] MEDS: SPIRONOLACTONE 25 MG TAB PO SCH (07:37)
[2016-07-26] MEDS: PANTOprazole SOD 40 MG TAB PO SCH (07:37)
[2016-07-26] MEDS: HEPARIN SOD 5000 UNIT/0.5 ML CARP SQ SCH (07:37)
[2016-07-26] MEDS: LORAZEPAM 0.5 MG TAB PO SCH (07:41)
[2016-07-26] MEDS ORDERED: MAGNESIUM HYDROXIDE SUSP 30 ML UDC PO ONE (10:45)
--- NOTE | 2016-07-26 12:33 | PROGRESS NOTE ---
DATE: 07/26/2016August unfortunately refused her afternoon Sinemet yesterday, but finally took her half pill this morning, has not had any issues with that, is not nauseated. Her blood pressure has been stable, but of course it is too early to tell if it is going to have any positive effect on her tremor, bradykinesia and rigidity. Today, she is awake and alert. She is willing after some discussion to move the Sinemet dose up to a half tablet 3 times a day with meals in several weeks and I went over this plan with Edie Haider, her attending physician. She may well be able to be discharged to [facility] today if there a bed is available. information services vice president is working on it. She does have an appointment to see me in a month, which would be actually a great time to assess her response or lack thereof to a very low dose Sinemet and to discuss the potential if necessary moving the dose up. As usual, she is reluctant to consider a full tablet 3 times a day at this time and I think we will compromise on a half tablet 3 times a day, hope she has no side effects and can get some benefit from the drug.
[2016-07-26] MEDS ORDERED: SNM/25100 PO (13:24)
[2016-07-26] MEDS ORDERED: ATV5 PO (13:24)
[2016-07-26] MEDS ORDERED: OXYC1TAB3 PO (13:24)
--- NOTE | 2016-07-26 13:35 | Discharge Instructions ---
Discharge Instructions Date of Service July 26, 2016. Admission Reason for Admission: Fall, Hypoxia, Parkinson Disease Discharge Discharge Diagnosis / Problem: Fall, hypoxia, Parkinson's Disease Discharge Goals Goal(s): Improve disease control, Therapeutic intervention Activity Recommendations Activity Level: Assistance Required Therapies: Physical Therapy, Occupational Therapy, Speech Therapy Speech Therapy recommendations: This patient presents with moderate oral-pharyngeal dysphagia and s/s esophageal dysfunction. The following is recommended: 1.SLIPPERY mechanical soft diet 2.Aspiration precautions: Fully upright, straws okay, remain upright 15-30 minutes after meal completed, alternate solids with liquids 3.Consideration of f/u with FOREST FIRE FIGHTER services at the [facility] or SNF to which she is discharged for both dysphagia and voice therapies. These therapies will be a long-term process for the patient as she continues in this disease process. 4. If the patient were to initiate use of medications in treatment of the Parkinson's disease, this may affect her swallowing function. FOREST FIRE FIGHTER services at patient's residence should be notified of the initiation of medication and follow-up. . Additional Information Patient informed of condition: Yes Advance Directives: Yes DNR: Yes Level of Care: Skilled Communicable Disease: No Prognosis: Stable Oxygen at (LPM): NC 1-2L [place] Catheter: No Instructions / Follow-Up Instructions / Follow-Up 76-year-old female with history of Parkinson's disease, paroxysmal A. fib, pacemaker in situ, HTN, HL, CAD, chronic LBBB, osteoporosis, and GERD, who presented to the ED because of a fall and found to have acute hypoxemic respiratory failure in the ER. The fall is mechanical secondary to ambulatory dysfunction from Parkinson's disease. She has pain in her coccyx region. Parkinson's disease, multiple falls, ambulatory dysfunction, dysphagia- Pelvis x-ray:IMPRESSION: Moderate degenerative change. No acute process. - Lumbar spine x-ray: : Degenerative change. Osteopenia. No acute process. - Coccyx x-ray: no acute changes - Chest x-ray: no acute changes - Head CT: Negative - Lumbar spine CT:No fractures within the cervical spine. Moderate degenerative change. PT OT evaluations and SNF placement, appreciate neurology input as far as beginning treatment for Parkinson's -starting Sinemet 1/2 tab bid today as per Neuro and pt agreeable (has previously declined treatment for PD)--> increase very slowly as tolerated to 1/ 2 tab tid in 2 weeks -f/u with Neuro already scheduled for in 1 month Follow Speech Tx recommendations: This patient presents with moderate oral-pharyngeal dysphagia and s/s esophageal dysfunction. The following is recommended: 1.SLIPPERY mechanical soft diet 2.Aspiration precautions: Fully upright, straws okay, remain upright 15-30 minutes after meal completed, alternate solids with liquids 3.Consideration of f/u with FOREST FIRE FIGHTER services at the [facility] or SNF to which she is discharged for both dysphagia and voice therapies. These therapies will be a long-term process for the patient as she continues in this disease process. 4. If the patient were to initiate use of medications in treatment of the Parkinson's disease, this may affect her swallowing function. FOR[employer] FIRE FIGHTER services at patient's residence should be notified of the initiation of medication and follow-up. Acute hypoxemic respiratory failure-brief, likely related to atelectasis with possible underlying lung disease although CT of the chest fairly unremarkable despite elevated [id number] improved, requiring 1-2LNC at times, continue to wean off O2 HTN, CAD, elevated troponin suspect demand ischemia, Chronic LBBB, h/o pacer, PAF, HL--> asymptomatic, Not on anticoagulation presumably for high fall risk. BP improved control today -trended cardiac markers and mildly elevated and trended downward - ECHO is from May 2016 with preserved ejection fraction and no wall motion abnormalities - Continue Clonidine, metoprolol, spironolactone - Continue Atorvastatin 10 mg -continue ASA -f/u with Cardiology within 1 month GERD: Continue Protonix daily Osteoporosis- Vit D 47 on 12/2015 -continue MVI with Calcium and D H/o left partial nephrectomy for RCC, Chronic right mild-mod hydronephrosis, Nephrolithiasis- seen on recent CT scan as outpt -stable, follows with Urology routinely Pancreatic cyst/Sidebranch IPMN 7 mm-stable on recent CT Right ovarian solid mass 4.1 cm -stable from previous -Is followed by DRUG ABUSE PROGRAM COORDINATOR Bronchiectasis in RML, lingula on recent CT abd/pel earlier this year- asymptomatic -Followed by pulmonary supposedly as an outpatient DVT prophylaxis: Heparin subcutaneous Dispo: SNF placement today at [place] F/u with PCP upon discharge from [place] F/u with Cardiology within 1 month Follow up with Dr. Tucker/Neurology in 1 month Current Hospital Diet Patient's current hospital diet: AHA Diet (Heart Healthy) Discharge Diet Recommended Diet: AHA Diet (Heart Healthy) Procedures Procedures Performed: Xrays pelvis,coccyx, Lumbar spine, chest Chest CT angiogram Head CT Cervical spine CT Pending Studies Studies pending at discharge: no Physician Orders On Transfer Special Precautions: Fall risk Dressing Changes: None IV Therapy: None Vital Signs: Daily orthostatic BPs Weigh: Daily POLST Discussion: Not Applicable Laboratory Results Last 24 Hours Test 07/26/16 05:38 White Blood Count 8.23 K/uL Red Blood Count 3.68 M/uL Hemoglobin 10.4 g/dL Hematocrit 33.1 % Mean Corpuscular Volume 89.9 fL Mean Corpuscular Hemoglobin 28.3 pg Mean Corpuscular Hemoglobin Concent 31.4 g/dl RDW Standard Deviation 46.2 fL RDW Coefficient of Variation 13.8 % Platelet Count 268 K/uL Mean Platelet Volume 10.4 fL Medical Emergencies . Who to Call and When: Medical Emergencies: If at any time you feel your situation is an emergency, please call 911 immediately. . Non-Emergent Contact Non-Emergency issues call your: Primary Care Provider, Neurologist . . "Provider Documentation" section prepared by Edie Haider. . Core Measure Problem Core Measures: None [place] Drug Monitoring Program Search Results: patient reviewed within database, no issues identified
[2016-07-26 13:45] VITALS: BP 132/65; PULSE 70; TEMP 36.6; O2SAT 100
--- NOTE | 2016-07-27 10:23 | Discharge Summary ---
Discharge Summary Date of Service July 27, 2016. Discharge Summary Admission Date: July 22, 2016 at 22:33 Discharge Date: July 26, 2016 Discharge Disposition: retirement facility Principal Diagnosis: Fall, Parkinson's Disease, Acute hypoxemic respiratory failure Problems/Secondary Diagnoses: Paroxysmal Atrial fibrillation Pacemaker in situ HTN HL CAD Chronic LBBB Osteoporosis GERD, Coccygeal pain Ambulatory dysfunction Dysphagia Degenerative disc disease of the cervical, thoracic, and lumbar spine Demand ischemia H/o left partial nephrectomy for RCC Chronic right mild-mod hydronephrosis Nephrolithiasis Pancreatic cyst/Sidebranch IPMN 7 mm-stable on recent CT Right ovarian solid mass 4.1 cm -stable Anxiety disorder Immunizations: Have You Had Influenza Vaccine: Yes Influenza Vaccine Date: Nov 26, 2008 History of Tetanus Vaccine?: Yes Tetanus Immunization Date: Nov 27, 2007 History of Pneumococcal: Yes Pneumococcal Date: Nov 27, 2007 History of Hepatitis B Vaccine: No Procedures: Video swallow IMPRESSION: 1. No aspiration or penetration identified. Disordered esophageal motility. Vallecular and piriform sinus retention 2. Please see the speech pathologist report for detailed findings and recommendations. CHEST CTA for PULMONARY ARTERIES CT DOSE: 349.69 mGy.cm HISTORY: Chest pain dyspnea TECHNIQUE: Multiaxial CT images of the chest were performed following the intravenous administration of contrast to evaluate the pulmonary arteries. Maximal intensity projection images were also obtained. COMPARISON STUDY: 02/28/2009 FINDINGS: Moderate atherosclerotic change thoracic aorta. Pulmonary vasculature enhances appropriately. There are no significant filling defects. The peripheral pleura vessels are not well seen due to overlying respiratory artifact. Moderate bibasilar atelectatic change. Several old rib fractures. IMPRESSION: 1. No evidence for pulmonary embolus. 2. Mild bibasilar atelectasis. 3. Moderate cardiomegaly. 4. Moderate degenerative change thoracic spine. CERVICAL SPINE CT CT DOSE: 340.84 mGycm HISTORY: Trauma fall TECHNIQUE: Multiaxial CT images of the cervical spine were performed and reformatted in the sagittal and coronal plane without the use of contrast. COMPARISON: None. FINDINGS: No fractures. No subluxation. Prevertebral soft tissues and the C1-C2 interval are intact. No pneumothorax. IMPRESSION: No fractures within the cervical spine. Moderate degenerative change CHEST ONE VIEW PORTABLE CLINICAL HISTORY: fall trauma COMPARISON STUDY: 05/15/2016 FINDINGS: Bipolar cardiac pacemaker. Diaphragms smooth. Lungs are clear. Mild emphysematous change. IMPRESSION: Chronic change. No acute process. SACRUM COCCYX MIN 2 VIEWS CLINICAL HISTORY: fall trauma COMPARISON STUDY: None FINDINGS: No acute process IMPRESSION: No acute process HEAD CT NONCONTRAST CT DOSE: 638.56 mGycm HISTORY: Trauma fall TECHNIQUE: Multiaxial CT images of the head were performed without the use of intravenous contrast. Comparison: None. Findings: The paranasal sinuses and mastoid air cells are clear. The calvarium and skull base are intact. The ventricles and sulci are within normal limits. There is no mass, hematoma, midline shift, or acute infarct. Impression: No acute intracranial abnormality. LUMBAR SPINE 2 OR 3 VIEWS CLINICAL HISTORY: fall lower back pain trauma. Pain. COMPARISON STUDY: 12/06/2012 FINDINGS: Degenerative change. No acute compression deformity. Generalized osteopenia. IMPRESSION: Degenerative change. Osteopenia. No acute process. PELVIS 1 OR 2 VIEW ROUTINE CLINICAL HISTORY: fall trauma COMPARISON: None. DISCUSSION: The bones and joint spaces appear intact. There is no evidence of fracture, dislocation or bony disease. Moderate generalized degenerative change IMPRESSION: Moderate degenerative change. No acute process. Consultations: Neurology Medication Reconciliation New Medications: Levodopa/Carbidopa (Sinemet 25MG/100MG) 1 Ea Tab 0.5 TAB PO BID for 30 Days, TAB and increase to tid on 08/09/16 Continued Medications: Acetaminophen Tab (Tylenol) 325 Mg Tab 650 MG PO Q4H PRN for Pain, TAB Aspirin (Aspirin Chewable) 81 Mg Chew 162 MG PO DAILY, TAB Atorvastatin (Lipitor) 10 Mg Tab 10 MG PO Q2D, TAB Calcium Carbonate-Cholecalcife (Caltrate 600+D) 1 Tab Tab 1 TAB PO BID Clonidine HCl (Clonidine HCl) 0.1 Mg Tab 0.1 MG PO BID TAKE THIS MEDICATION AT 0700 AND 1600 HOURS Clonidine HCl (Clonidine HCl) 0.2 Mg Tab 0.2 MG PO HS Docusate Sodium (Docqlace) 100 Mg Cap 200 MG PO QAM Lorazepam (Lorazepam) 0.5 Mg Tab 0.5 MG PO BID, #6 (This prescription has been renewed) Magnesium Hydroxide (Milk Of Magnesia) 30 Ml Susp 30 ML PO UD PRN for Constipation, ML NEEDED FOR NO BOWEL MOVEMENT AFTER 3 DAYS Metoprolol Succinate (Metoprolol Succinate ER) 100 Mg Tabcr 100 MG PO BID Multiple Vitamin (Daily Lauro) 1 Tab Tab 1 TAB PO DAILY Oxycodone Immediate Rel Tab (Roxicodone Ir) 5 Mg Tab 5 MG PO Q6H PRN for Pain, #15 TAB (This prescription has been renewed) Pantoprazole (Protonix) 40 Mg Tab 40 MG PO DAILY Spironolactone (Spironolactone) 25 Mg Tab 25 MG PO Q2D Discharge Exam Doing well on the day of discharge. Started Sinemet this morning and has no side effects. Physical Exam General Appearance: no apparent distress, + thin Eyes: normal inspection, sclerae normal ENT: hearing grossly normal Neck: trachea midline Respiratory/Chest: lungs clear, normal breath sounds, no respiratory distress, no accessory muscle use Cardiovascular: regular rate, rhythm, no edema, no murmur Abdomen: normal bowel sounds, non tender, soft, no organomegaly Extremities: no calf tenderness Neurologic/Psychiatric: alert, + pertinent finding (masked facies, resting tremor) Skin: normal color, warm/dry Review of Systems: Constitutional: No fever Eyes: No problem reported Respiratory: No shortness of breath Cardiovascular: No chest pain Abdomen: No nausea, No pain, No vomiting Musculoskeletal: No problem reported Genitourinary - Female: No problem reported Neurologic: + balance problems Psychiatric: + anxiety Endocrine: No problem reported Hematologic / Lymphatic: No problem reported Integumentary: No problem reported Hospital Course 76-year-old female with history of Parkinson's disease, paroxysmal A. fib, pacemaker in situ, HTN, HL, CAD, chronic LBBB, osteoporosis, and GERD, who presented to the ED because of a fall and found to have acute hypoxemic respiratory failure in the ER. The fall is mechanical secondary to ambulatory dysfunction from Parkinson's disease. She has pain in her coccyx region. Parkinson's disease, multiple falls, ambulatory dysfunction, dysphagia- Pelvis x-ray:IMPRESSION: Moderate degenerative change. No acute process. - Lumbar spine x-ray: : Degenerative change. Osteopenia. No acute process. - Coccyx x-ray: no acute changes - Chest x-ray: no acute changes - Head CT: Negative - Lumbar spine CT:No fractures within the cervical spine. Moderate degenerative change. PT OT evaluations and SNF placement, appreciate neurology input as far as beginning treatment for Parkinson's -starting Sinemet 1/2 tab bid today as per Neuro and pt agreeable (has previously declined treatment for PD)--> increase very slowly as tolerated to 1/ 2 tab tid in 2 weeks -f/u with Neuro already scheduled for in 1 month Follow Speech Tx recommendations: This patient presents with moderate oral-pharyngeal dysphagia and s/s esophageal dysfunction. The following is recommended: 1.SLIPPERY mechanical soft diet 2.Aspiration precautions: Fully upright, straws okay, remain upright 15-30 minutes after meal completed, alternate solids with liquids 3.Consideration of f/u with SCIENTIFIC RESEARCH MANAGER services at the [facility] or SNF to which she is discharged for both dysphagia and voice therapies. These therapies will be a long-term process for the patient as she continues in this disease process. 4. If the patient were to initiate use of medications in treatment of the Parkinson's disease, this may affect her swallowing function. SCIENTIFIC RESEARCH MANAGER services at patient's residence should be notified of the initiation of medication and follow-up. Acute hypoxemic respiratory failure-brief, likely related to atelectasis with possible underlying lung disease although CT of the chest fairly unremarkable despite elevated [id number] improved, requiring 1-2LNC at times, continue to wean off O2 HTN, CAD, elevated troponin suspect demand ischemia, Chronic LBBB, h/o pacer, PAF, HL--> asymptomatic, Not on anticoagulation presumably for high fall risk. BP improved control today -trended cardiac markers and mildly elevated and trended downward - ECHO is from May 2016 with preserved ejection fraction and no wall motion abnormalities - Continue Clonidine, metoprolol, spironolactone - Continue Atorvastatin 10 mg -continue ASA -f/u with Cardiology within 1 month GERD: Continue Protonix daily Osteoporosis- Vit D 47 on 12/2015 -continue MVI with Calcium and D H/o left partial nephrectomy for RCC, Chronic right mild-mod hydronephrosis, Nephrolithiasis- seen on recent CT scan as outpt -stable, follows with Urology routinely Pancreatic cyst/Sidebranch IPMN 7 mm-stable on recent CT Right ovarian solid mass 4.1 cm -stable from previous -Is followed by EN[employer] LEVEL MARKETING REPRESENTATIVE Bronchiectasis in RML, lingula on recent CT abd/pel earlier this year- asymptomatic -Followed by pulmonary supposedly as an outpatient DVT prophylaxis: Heparin subcutaneous Dispo: SNF placement today at [place] F/u with PCP upon discharge from [place] F/u with Cardiology within 1 month Follow up with Dr. Tucker/Neurology in 1 month Total Time Spent: Greater than 30 minutes This includes examination of the patient, discharge planning, medication reconciliation, and communication with other providers. Discharge Instructions Please refer to the electronic Patient Visit Report (Discharge Instructions) for additional information. Follow-Up With PCP within one week after discharge from SNF With neurology in one month With cardiology within 1 month Additional Copies To Joby Mcneil M.D.; Cristian Tucker M.D. (MEDICINE)
== END 2016-07-26 16:29 | DRG 56 ==
LOC: ENRESERVTM → ENRESERVDT → C.EDB 18:10 → C.2T 22:33 → C.4E 07-24 18:26
PROVIDERS: ADMIT Hospitalist; ATTEND Family Medicine
DX: G20 Parkinson's disease (principal); J96.01 Acute respiratory failure with hypoxia; I24.8 Other forms of acute ischemic heart disease; I48.0 Paroxysmal atrial fibrillation; I44.7 Left bundle-branch block, unspecified; M81.0 Age-related osteoporosis without current pathological fracture; K21.9 Gastro-esophageal reflux disease without esophagitis; M53.3 Sacrococcygeal disorders, not elsewhere classified; R13.10 Dysphagia, unspecified; M50.33 Other cervical disc degeneration, cervicothoracic region; M51.86 Other intervertebral disc disorders, lumbar region; F41.9 Anxiety disorder, unspecified; N18.3 Chronic kidney disease, stage 3 (moderate); R29.6 Repeated falls; J47.9 Bronchiectasis, uncomplicated; I25.10 Atherosclerotic heart disease of native coronary artery without angina pectoris; Z66 Do not resuscitate; I12.9 Hypertensive chronic kidney disease with stage 1 through stage 4 chronic kidney disease, or unspecified chronic kidney disease; Z79.82 Long term (current) use of aspirin; Z85.528 Personal history of other malignant neoplasm of kidney; Z95.0 Presence of cardiac pacemaker; Z90.5 Acquired absence of kidney; W18.00XA Striking against unspecified object with subsequent fall, initial encounter

== ENCOUNTER → 2016-08-26 | Outpatient (CLI) | payer OTHER ==
[~2016-08-26] MED LIST changes: +ACET325T96 PO; -AMLO2.5T PO; +ASPCH81X PO; -ASPI-435 PO; -DOCU-94 PO; +DOCU100C22 PO; -METO50TA16 PO; +MOML PO; +MULT-411 PO; -MULTTAB5 PO; -OMEG10007 PO; +OXYC1TAB3 PO; +SNM/25100 PO
== END | disposition home or self-care (01) ==
LOC: C.LABSPEC 13:26
PROVIDERS: ATTEND Obstetrics & Gynecology
DX: Z87.898 Personal history of other specified conditions (principal)

== ENCOUNTER → 2016-08-31 | Outpatient (CLI) | payer OTHER | END | disposition home or self-care (01) | LOC: C.LAB1850 14:00 | PROVIDERS: ATTEND Obstetrics & Gynecology | DX: Z87.898 Personal history of other specified conditions (principal) ==

== ENCOUNTER → 2016-12-31 | Outpatient (CLI) | payer OTHER | END | disposition home or self-care (01) | LOC: C.PAPS 14:06 | PROVIDERS: ATTEND Obstetrics & Gynecology | DX: Z12.4 Encounter for screening for malignant neoplasm of cervix (principal) ==

== ENCOUNTER → 2017-01-28 | Outpatient (CLI) | payer OTHER, BC ==
--- NOTE | 2017-01-28 15:30 | MAMMOGRAPHY REPORT ---
BILATERAL DIGITAL SCREENING MAMMOGRAM TOMOSYNTHESIS WITH CAD: 01/28/2017 TECHNIQUE: Breast tomosynthesis in addition to standard 2D mammography was performed. Current study was also evaluated with a Computer Aided Detection (CAD) system. COMPARISON: Comparison is made to exams dated: 02/03/2016 ultrasound, 02/03/2016 mammogram, 01/28/20 16 mammogram, 01/23/2015 mammogram, 01/22/2014 mammogram, and 01/19/2013 mammogram - [facility]. BREAST COMPOSITION: The tissue of both breasts is extremely dense, which lowers the sensitivity of m ammography. FINDINGS: No suspicious masses, calcifications, or areas of architectural distortion are noted in ei ther breast. There has been no significant interval change compared to prior exams. Bilateral benign -appearing calcifications are not significantly changed. A linear scar marked denotes a scar on the left lateral breast. Note that the left MLO view is suboptimal due to difficulties with positioning due to a pacemaker; the left pectoralis muscle is not visualized on the MLO view. IMPRESSION: ACR BI-RADS CATEGORY 2: BENIGN There is no mammographic evidence of malignancy. A 1 year screening mammogram is recommended. The pa tient will receive written notification of the results. Approximately 10% of breast cancers are not detected with mammography. A negative mammographic report should not delay biopsy if a clinically suggestive mass is present. Stephanie Norwood M.D. /:01/28/2017 14:19:33 Attending Technologist: Lindy Calabrese RT(R)(M), [facility] [employer] Assessment Specialist: Angelia Gomez RT(R)(M), [facility] letter sent: Normal 1/2 BI-RADS Code: ACR BI-RADS Category 2: Benign
== END | disposition home or self-care (01) ==
LOC: C.MAMM 11:24
PROVIDERS: ATTEND Obstetrics & Gynecology
DX: Z12.31 Encounter for screening mammogram for malignant neoplasm of breast (principal)

== ENCOUNTER → 2017-03-10 | Outpatient (CLI) | payer OTHER, BC ==
[~2017-03-10] MED LIST changes: +ACET-1693 PO; -ACET325T96 PO; +OXYC-737 PO; -OXYC1TAB3 PO; +SPIR25TA6 PO; -SPR25 PO
== END | disposition home or self-care (01) ==
LOC: C.LABSPEC 13:34
PROVIDERS: ATTEND Obstetrics & Gynecology
DX: N76.0 Acute vaginitis (principal)

== ENCOUNTER → 2017-05-14 | Outpatient (CLI) | payer OTHER, BC ==
[~2017-05-14] MED LIST changes: -OXYC-737 PO; +OXYC1TAB3 PO; -SPIR25TA6 PO; +SPR25 PO
== END | disposition home or self-care (01) ==
LOC: C.LABSPEC 15:54
PROVIDERS: ATTEND Obstetrics & Gynecology
DX: N76.0 Acute vaginitis (principal)

== ENCOUNTER → 2017-06-14 | Outpatient (CLI) | payer OTHER, BC ==
[2017-06-14 13:06] LABS: HEMATOCRIT 39.4 % (37-47); HEMOGLOBIN 12.8 g/dL (12.0-16.0); MEAN CELL VOLUME 91.4 fL (80-100); MEAN CORPUSCULAR HEMOGLOBIN 29.7 pg (25-34); MEAN CORPUSCULAR HGB CONC 32.5 g/dl (32-36); PLATELET COUNT 271 K/uL (130-400); RED CELL DISTRIBUTION WIDTH CV 14.7 % (11.5-14.5); RED CELL DISTRIBUTION WIDTH SD 49.9 fL (36.4-46.3); WHITE BLOOD COUNT 6.63 K/uL (4.8-10.8)
[2017-06-14 13:19] LABS: PTT PATIENT 25.9 SECONDS (21.0-31.0)
[2017-06-14 14:49] LABS: BLOOD UREA NITROGEN 17 mg/dl (7-18); CALCIUM 9.2 mg/dl (8.5-10.1); CARBON DIOXIDE 30 mmol/L (21-32); CREATININE 1.34 mg/dl (0.60-1.20); GLUCOSE 104 mg/dl (70-99); POTASSIUM 4.1 mmol/L (3.5-5.1); SODIUM 140 mmol/L (136-145)
== END | disposition home or self-care (01) ==
LOC: C.LABBC 09:50
PROVIDERS: ATTEND Internal Medicine Cardiovascular Disease
DX: Z01.818 Encounter for other preprocedural examination (principal)

== ENCOUNTER → 2017-06-24 | Day surgery (SDC) | payer OTHER, BC ==
[~2017-06-24] VITALS: Ht 162.6 cm; Wt 54.0 kg
[~2017-06-24] MED LIST changes: +ACETAMINOPHEN 325 MG TAB PO PRN; +BACITRACIN 50000 UNIT VIAL ONE; +BACITRACIN OINT 0.9 GM PKT ONE; +CEFAZOLIN 1000MG IV PUSH 7.5 ML IV SCH; +FENTANYL CITRATE INJ 50 MCG/1 ML 2 ML VIAL ONE; +KETOROLAC TROMETHAMINE 10 MG TAB PO PRN; +LACTATED RINGER'S 1000ML 1,000 ML IV SCH; +LIDOCAINE HCL 1% 20 ML VIAL ONE; +MIDAZOLAM HCL 5 MG/ML 1 ML VIAL ONE
[2017-06-24 12:36] VITALS: BP 194/75; PULSE 69; TEMP 37.1; O2SAT 93; Ht 162.6 cm; Wt 54.0 kg
--- NOTE | 2017-06-24 12:45 | Pre Sedation Assessment ---
Pre Sedation Assessment General Date of Sedation: Jun 24, 2017. Review Cardiovascular: regular rate, rhythm, no edema, no gallop, no murmur Lungs: chest non-tender, lungs clear, normal breath sounds, no respiratory distress, no accessory muscle use Pre-Sedation Airway Assessment Smoking Status: Never Smoker Hx of Sleep Apnea: No Hx of difficult intubation: No Short Thick Neck: No Thyro-mental Distance: > 3 Finger Breadths Mallampati Classification: Class II ASA Classification: Class II NPO Status Date of Last Intake of Fluids: Jun 23, 2017 Date of Last Intake of Solids: Jun 23, 2017 Procedure Planning Contraindications for Sedation: None Current Medications Reviewed: Yes Notes The planned sedation has been discussed with the patient. Informed Consent was obtained. I have identified the patient, determined the appropriateness of sedation and have assessed the patient immediately prior to the procedure. All medicine(s) and interventions are by my order.
--- NOTE | 2017-06-24 13:51 | [facility] Operative Report ---
Operative Report Operative Date Jun 24, 2017. Pre-Operative Diagnosis Pacemaker ARNEL Post-Operative Diagnosis Same Procedure(s) Performed Dual-chamber pacemaker replacement Surgeon Dr. Justice Fire Extinguisher Repairer Surgeon(s) None Estimated Blood Loss 5 cc Findings Stable atrial and ventricular measurements, device replaced utilizing old leads Specimens Old pacemaker, return to [employer] Anesthesia Local with sedation Complication(s) None Disposition Same day surgery Description of Procedure After obtaining informed consent for the procedure, the patient was brought to the laboratory being NPO after midnight. After identification in the laboratory the patient was prepped and draped in the standard sterile manner for a left- sided device replacement. The left prepectoral region was anesthetized with 1% lidocaine local anesthetic and once adequate anesthesia was obtained a 5 cm incision was made through the old implant scar and carried down to the pacemaker generator. The generator was dissected free of tissue and explanted. A bacitracin-soaked sponge(50,000 units in 50 cc normal saline solution) was placed in the pocket. The pacemaker was removed from the leads and connected to an external pacing system. Pacing and sensing characteristics were evaluated in both the atrial and ventricular leads as noted on the implant data sheet. A new pacemaker was attached to the leads and found to be functioning normally. The bacitracin- soaked sponge was removed from the pocket, the pacemaker was placed in the pocket with the leads coiled beneath it. The incision was closed with a running double subcutaneous closure of 3-0 V-lock absorbable suture followed by a running subcuticular skin closure of 4-0 V lock absorbable suture. The patient tolerated the procedure well, there were no complications and the patient was transferred to the same-day surgery unit for observation and subsequent discharge. I attest to the content of the Intraoperative Record and any orders documented therein. Any exceptions are noted below.
[2017-06-24 13:55] VITALS: BP 146/88; PULSE 79; TEMP 37; O2SAT 93
--- NOTE | 2017-06-24 13:56 | Post Sedation Assessment ---
Post Sedation Assessment General Date of Sedation Jun 24, 2017. Vital Signs: Vital Signs Past 12 Hours Date Time Temp Pulse Resp B/P (MAP) Pulse Ox O2 Delivery O2 Flow Rate FiO2 06/24/17 12:36 37.1 69 18 194/75 (114) 93 Room Air Post Procedure Recovery Score Activity: (2) Moves 4 extremities * Respiration: (2) Deep breath/cough Circulation: (2) +/-20% PreAnes Value Consciousness: (2) Fully Awake Oxygen Saturation: (2) > 92% On Room Air Post Anesthesia Score: 10 Discharge Sedation Level of Care: Fast Track Phase II Post Sedation Plan On clinical assessment, the patient appears to have tolerated the sedation without complications. Patient is recovering as anticipated. Patient will continue to be monitored by nursing and may be discharged when sedation discharge criteria are met per below protocol. Upon Completions of procedure and additional 15 minutes continue every 5 minute vital signs and the P.A.R. score; then discharge to a Phase I or Fast Track to Phase II per the following guidelines: * Discharge Patient to appropriate Phase II area if PAR is 8 or greater or return to pre- procedure baseline. The post - procedure orders will be as directed. * If PAR score is less than 8 or not return to pre-procedure baseline then patient will follow Phase I monitoring till PAR is reached for Phase II. The Phase I may be done in procedure room or may call to secure a Phase I area. * If naloxone or flumazenil are used for reversal, hold in Phase I for an additional 60 -120 minutes before discharge to Phase II. Please call the Sedation Physician to re-evaluate and complete post-note for discharge to Phase II area. Do NOT discharge from procedure sedation or Phase 1 until post- sedation evaluation note is complete by procedure /sedation MD Sedation Discharge Instructions to be given to the patient at discharge to home.
[2017-06-24 14:10] VITALS: BP 135/82; PULSE 70; O2SAT 94
[2017-06-24 14:40] VITALS: BP 127/74; PULSE 85; O2SAT 96
[2017-06-24 15:10] VITALS: BP 132/73; PULSE 75; O2SAT 96
--- NOTE | 2017-06-24 15:20 | Discharge Instructions ---
Discharge Instructions Date of Service Jun 24, 2017. Admission Reason for Admission: Pacemaker End of Service Discharge Discharge Diagnosis / Problem: Pacemaker replacement Discharge Goals Goal(s): Improve disease control Activity Recommendations Activity Limitations: resume your previous activity . Instructions / Follow-Up Instructions / Follow-Up ACTIVITY RECOMMENDATIONS: * Do not raise affected arm over head for 2 weeks. SPECIAL CARE INSTRUCTIONS: * If bleeding occurs, apply direct pressure to area for 5 minutes. * Call your doctor if you have severe pain, fever, drainage or bleeding at site. * Keep dressing on and dry. * Keep any scheduled doctor's appointment. * Implant Card - hand held device with website information given. SKIN IRRITATION: * You may experience some redness and/or swelling in the area where radiation was administered. If any skin irritation occurs, please contact your family physician. FOLLOW UP VISIT: Dr. Justice Sunday, June 25, 2017, 2:00 PM. Current Hospital Diet Patient's current hospital diet: AHA Diet (Heart Healthy) Discharge Diet Recommended Diet: AHA Diet (Heart Healthy) Pending Studies Studies pending at discharge: no Medical Emergencies . Who to Call and When: Medical Emergencies: If at any time you feel your situation is an emergency, please call 911 immediately. . Non-Emergent Contact Non-Emergency issues call your: Primary Care Provider . . "Provider Documentation" section prepared by Adair Justice. .
[2017-06-24 15:40] VITALS: BP 139/82; PULSE 80; O2SAT 98
== END | disposition home or self-care (01) ==
LOC: C.ACU 11:12
PROVIDERS: ATTEND Internal Medicine Cardiovascular Disease
DX: Z45.010 Encounter for checking and testing of cardiac pacemaker pulse generator [battery] (principal); I25.10 Atherosclerotic heart disease of native coronary artery without angina pectoris; E78.5 Hyperlipidemia, unspecified; I12.9 Hypertensive chronic kidney disease with stage 1 through stage 4 chronic kidney disease, or unspecified chronic kidney disease; I44.7 Left bundle-branch block, unspecified; I73.9 Peripheral vascular disease, unspecified; G20 Parkinson's disease; I48.0 Paroxysmal atrial fibrillation; I49.5 Sick sinus syndrome; N18.3 Chronic kidney disease, stage 3 (moderate); K21.9 Gastro-esophageal reflux disease without esophagitis; Z90.89 Acquired absence of other organs; Z90.5 Acquired absence of kidney; Z79.82 Long term (current) use of aspirin; Z79.899 Other long term (current) drug therapy; Z88.1 Allergy status to other antibiotic agents; Z82.3 Family history of stroke; Z82.49 Family history of ischemic heart disease and other diseases of the circulatory system

== ENCOUNTER → 2017-07-28 | Outpatient (CLI) | payer OTHER, BC ==
[~2017-07-28] MED LIST changes: -ACETAMINOPHEN 325 MG TAB PO PRN; -BACITRACIN 50000 UNIT VIAL ONE; -BACITRACIN OINT 0.9 GM PKT ONE; -CEFAZOLIN 1000MG IV PUSH 7.5 ML IV SCH; -FENTANYL CITRATE INJ 50 MCG/1 ML 2 ML VIAL ONE; -KETOROLAC TROMETHAMINE 10 MG TAB PO PRN; -LACTATED RINGER'S 1000ML 1,000 ML IV SCH; -LIDOCAINE HCL 1% 20 ML VIAL ONE; -MIDAZOLAM HCL 5 MG/ML 1 ML VIAL ONE
[2017-07-28 15:46] LABS: ALBUMIN 3.8 gm/dl (3.4-5.0); ALKALINE PHOSPHATASE 96 U/L (45-117); ALT/SGPT 19 U/L (12-78); AST/SGOT 21 U/L (15-37); BLOOD UREA NITROGEN 15 mg/dl (7-18); CALCIUM 9.4 mg/dl (8.5-10.1); CARBON DIOXIDE 34 mmol/L (21-32); CHOLESTEROL 145 mg/dl (0-200); CREATININE 1.26 mg/dl (0.60-1.20); GLUCOSE 93 mg/dl (70-99); LDL CHOLESTEROL CALCULATED 79 mg/dl; POTASSIUM 3.9 mmol/L (3.5-5.1); SODIUM 140 mmol/L (136-145); TOTAL PROTEIN 7.9 gm/dl (6.4-8.2)
== END | disposition home or self-care (01) ==
LOC: C.LAB1850 13:15
PROVIDERS: ATTEND Internal Medicine
DX: E78.5 Hyperlipidemia, unspecified (principal); I10 Essential (primary) hypertension; E04.2 Nontoxic multinodular goiter; M81.0 Age-related osteoporosis without current pathological fracture

== ENCOUNTER → 2017-11-01 | Outpatient (CLI) | payer OTHER, BC ==
[~2017-11-01] MED LIST changes: +OXYC-737 PO; -OXYC1TAB3 PO; +SPIR25TA6 PO; -SPR25 PO
== END | disposition home or self-care (01) ==
LOC: C.LABSPEC 15:54
PROVIDERS: ATTEND Obstetrics & Gynecology
DX: N76.0 Acute vaginitis (principal)

== ENCOUNTER 2022-03-27 13:38 | Inpatient (IN) ==
--- NOTE | 2022-03-27 15:42 | CT Scan Report ---
CT OF THE HEAD WITHOUT CONTRAST CLINICAL HISTORY: Fall. COMPARISON STUDY: Head CTs November 05, 2021 and March 26, 2022. CT DOSE: 638.56 mGycm TECHNIQUE: Helical axial images of the head were obtained without IV contrast. Automated exposure con trol was utilized for the study. A dose lowering technique was utilized adhering to the principles o f ALARA. FINDINGS: No acute intracranial hemorrhage, midline shift or mass effect is present. The ventricular system is unremarkable. The basal cisterns are patent. No extra-axial collections are present. There are no findings to suggest acute dural sinus thrombosis or acute territorial infarct. A right posteri or scalp contusion is present. There is no acute calvarial fracture. The appearance of the brain is u nchanged. IMPRESSION: 1. No acute intracranial findings. 2. Right posterior scalp contusion. No acute calvarial fracture. ACT 112: Negative or not required by law. Electronically signed by: Akil Cervantes M.D. 03/27/2022 3:41 PM
--- NOTE | 2022-03-27 15:52 | CT Scan Report ---
CT cervical spine wo con CLINICAL HISTORY: fall TECHNIQUE: Multidetector row helical CT of the cervical spine was performed without administration of intravenous contrast. Coronal and sagittal reformations were obtained. Automated dose lowering techn iques and/or adjustment according to patient size were utilized for this exam. Comparison: Comparison is made to CT cervical spine 03/26/2022 FINDINGS: No acute fractures or subluxations are identified. Degenerative changes are seen in the visualized sp ine most prominent at C5-C6. The alignment is normal. Calcified nodules are seen in the thyroid gland . Biapical scarring is seen in the lungs. IMPRESSION: Degenerative changes without evidence of acute bony injury. ACT 112: Negative or not required by law. Electronically signed by: Fabricio Marks M.D. 03/27/2022 3:50 PM
[2022-03-27 16:13] LABS: Appearance Urine Turbid (Clear); Bacteria Urine Automated Negative (Negative); Bilirubin Urine Negative (Negative); Blood Urine Trace (Negative); Cast Urine Automated 0 /lpf (0-5); Color Urine Yellow; Epithelial Cell Urine Auto >30 /lpf (0-5); Glucose Urine UA Negative (Negative); Ketones Urine Negative (Negative); Leukocyte Esterase Urine 3+ (Negative); Nitrite Urine Negative (Negative); Protein Urine 1+ (Negative); RBC Urine Automated 0-4 /hpf (0-4); Specific Gravity Urine 1.014 (1.000-1.030); Urobilinogen Urine Negative (Negative); WBC Urine Automated >30 /hpf (0-5)
--- NOTE | 2022-03-27 16:42 | XRay Report ---
XR humerus RT 2V CLINICAL HISTORY: fall TECHNIQUE: 2 radiographic views of the right humerus were obtained. Comparison: Comparison is made to right humerus radiographs 12/24/2014 FINDINGS: Old deformity of the right humerus is unchanged. The visualized portion of the shoulder and elbow radha nts are unremarkable. Mild osteopenia is seen. The overlying soft tissues are unremarkable. IMPRESSION: Old deformity of the right humerus is unchanged. No evidence of acute abnormality. ACT 112: Negative or not required by law. Electronically signed by: Fabricio Marks M.D. 03/27/2022 4:41 PM
[2022-03-27 17:30] LABS: Basophils # (auto) 0.05 K/uL (0-0.2); Basophils % (auto) 0.3 %; Eosinophils # (auto) 0.02 K/uL (0-0.50); Eosinophils % (auto) 0.1 %; Hematocrit (blood only) 36.9 % (34.1-44.9); Hemoglobin 12.6 g/dl (12.0-16.0); Immature Granulocytes # (auto) 0.08 K/uL (0.00-0.02); Immature Granulocytes % (auto) 0.5 %; Lymphocytes # (auto) 1.06 K/uL (1.2-3.4); Lymphocytes % (auto) 6.3 %; Mean Corpuscular Hemoglobin 30.3 pg (25.0-34.0); Mean Corpuscular Hgb Conc 34.1 g/dL (32.0-36.0); Mean Corpuscular Volume 88.7 fL (80.0-100.0); Mean Platelet Volume 9.9 fL (9.4-12.3); Monocytes # (auto) 1.39 K/uL (0.24-0.82); Monocytes % (auto) 8.3 %; Neutrophils # (auto) 14.11 K/uL (1.4-6.5); Neutrophils % (auto) 84.5 %; Platelet Count 354 K/uL (130-400); RDW Coefficient of Variation 12.8 % (11.5-14.5); RDW Standard Deviation 41.6 fL (36.4-46.3); Red Blood Count 4.16 M/uL (3.93-5.22); White Blood Count 16.71 K/ul (4.8-10.8)
--- NOTE | 2022-03-27 17:33 | Emergency Department Note ---
Impression & Plan Recurrent falls, Ambulatory dysfunction, UTI (urinary tract infection) ED Provider Note HISTORY OF PRESENT ILLNESS: Patient is an 81-year-old female presenting with recurrent falls. Son provides history. Reports that the patient was seen earlier today after falling and found to have a urinary tract infection. She was discharged back to her assisted living facility and has had 4 falls in the last 6 hours. She reportedly loses her footing and falls backwards. No loss of consciousness. She has been having recurrent falls in the last few weeks. No reported changes in medication. No cough or fevers. She was diagnosed with UTI earlier today and started on cefdinir. Patient denies any chest pain, shortness of breath or lightheadedness prior to the fall. ROS: as above PHYSICAL EXAM: Constitutional: Patient appears in no acute distress. HENT: Head: Normocephalic. Contusion to posterior scalp. Eyes: EOMI, PERRL Mouth/Throat: Mucous membranes moist. Neck: Trachea midline. Neck supple. No midline cervical spine TTP. Old- appearing ecchymosis to left lateral neck. Cardiovascular: RRR, No murmurs, rubs or gallops. Intact distal pulses. Pulmonary/Chest: No respiratory distress. Breath sounds clear and equal bilaterally. No wheezes or rales. No chest wall tenderness to palpation. Abdominal: BS +. Abdomen soft, no tenderness, rebound or guarding. Back: No midline spinal tenderness, no paraspinal tenderness, no CVA tenderness. Musculoskeletal: No edema, tenderness or deformity noted. Skin: Warm and dry. No rash, erythema, pallor or cyanosis Psychiatric: Appropriate mood and affect for situation. Neurological: Alert and keenly responsive. CN II-XII grossly intact, moving all extremities equally and fully. MDM: - Vitals signs showed hypertension. - History obtained via patient and patient's son and daughter (JOE). Patient has been having recurrent falls. She fell earlier today and was seen in the e mergency department and discharged back to her facility. However, in the few hours that she has been home she has had multiple witnessed falls. No reported changes in medications, other than starting cefdinir earlier today. - Chronic conditions affecting care: Parkinson's - Differential diagnoses include, but are not limited to: Intracranial hemorrhage; pneumonia; UTI; ACS - External medical records reviewed. Patient was seen in the emergency department a few hours ago and diagnosed with urinary tract infection. She was discharged on cefdinir. - EKG reviewed by myself showed normal sinus rhythm. Poor baseline. Rate 84 bpm. LBBB present, but also noted on EKG from 11/05/2021. - Laboratory workup interpreted by myself showed leukocytosis (WBC 16.71); hyponatremia (Na 130) - UA shows evidence of infection. - CT head wo contrast shows posterior scalp contusion. CT cervical spine negat [place] for acute injury. - Patient's children express concern for patient to go home, given her recurrent falls. - Discussion was had with psychiatric social worker supervisor about patient's case and need for admission. - Hospitalist consulted for admission. - Patient admitted [facility] for further evaluation and management. ASSESSMENT AND PLAN: Diagnosis: recurrent falls; ambulatory dysfunction; UTI Plan: admit Past Med/Surg History Medical History Acid reflux disease Allergic rhinitis Bronchiectasis CAD (coronary artery disease) Cancer of left kidney (2003) Cardiac pacemaker (2009) Chronic constipation Closed fracture of left proximal humerus Cystocele Cystocele, midline Ear pain, left History of basal cell carcinoma History of squamous cell carcinoma in situ of skin Hyperlipidemia Hypertension Left bundle branch block Nephrolithiasis (2011) Nontoxic multinodular goiter (2011) Osteoporosis (2012) PAD (peripheral artery disease) Pancreatic cyst Parkinson disease Paroxysmal A-fib Postmenopausal status Premature ventricular contractions Rectocele Reflux Right ovarian cyst Sick sinus syndrome Stage III chronic kidney disease (2006) Surgical History Elective replacement indicated for cardiac pacemaker battery at end of lifespan (2018) H/O partial nephrectomy (2003) S/P breast lumpectomy S/P cardiac pacemaker procedure (2009) S/P Mohs surgery for basal cell carcinoma Family History Brother Diabetes Grandfather (Maternal) Myocardial infarction Father Lung cancer Mother Stroke Hypertension Denies family history of Ovarian cancer Prostate cancer Breast cancer Colorectal cancer Social History Smoking Status: Former smoker Second Hand Exposure: Yes; Hx Alcohol Use: No Hx Substance Use: No Preferred Language: Irish Visual Impairment: No Limitations Hearing Ability: Hard of Hearing marital status: / Current Living Situation: Shelter current occupational status: retired Feels Safe at Home: Yes Childhood Exposure to Second-Hand Smoke: Yes Dental Care, Regularly: Yes Physical Activity Frequency: 1-2 Times per Week Seatbelt Use: always Sunscreen Use: Yes Allergies Allergies Allergy/AdvReac Type Severity Reaction Status Date / Time diclofenac Allergy Verified 12/15/21 13:28 Cipro AdvReac Unknown "i get Verified 06/24/17 12:25 irregular heartbeat." ciprofloxacin AdvReac Unknown "i get Verified 12/15/21 13:28 irregular heartbeat." Penicillins AdvReac Unknown Verified 12/15/21 13:28 Home Meds Home Medications Medication Instructions Recorded Confirmed metoprolol succinate 100 mg 100 mg PO BID 09/29/18 12/15/21 tablet,extended release 24 hr acetaminophen 325 mg tablet 650 mg PO Q4H PRN fever or pain 11/07/18 12/15/21 calcium carbonate 600 mg-vitamin 1 tab PO BID 11/07/18 12/15/21 D3 10 mcg (400 unit) tablet (Calcium 600 + D(3)) docusate sodium 100 mg capsule 200 mg PO DAILY 11/07/18 12/15/21 miscellaneous medical supply #1 ea 11/07/18 10/08/21 polyethylene glycol 3350 17 gram 17 gm PO DAILY PRN constipation 11/07/18 12/15/21 oral powder packet multivitamin 1 tab PO DAILY 08/13/19 12/15/21 carbidopa 25 mg-levodopa 100 mg 1 tab PO BID 10/23/19 12/15/21 tablet carbidopa 25 mg-levodopa 100 0.5 tab PO HS 10/23/19 12/15/21 mg-entacapone 200 mg tablet Previous Rx's Medication Instructions Recorded ondansetron 4 mg disintegrating 4 mg PO Q6H PRN nausea and 08/13/19 tablet vomiting #14 tabs nystatin 100,000 unit/gram topical 1 applic topical TID 10 days #30 10/17/20 cream grams lidocaine 5 % topical ointment See Rx Instructions topical 03/20/21 .COMPLEX #30 grams amlodipine 5 mg tablet 5 mg PO DAILY #90 tabs 07/11/21 pantoprazole 20 mg tablet,delayed 20 mg PO DAILY #90 tabs 09/18/21 release spironolactone 25 mg tablet 25 mg PO Q OTHER DAY #45 tabs 10/14/21 atorvastatin 10 mg tablet 10 mg PO Q2D #45 tabs 10/27/21 oxycodone 5 mg tablet 5 mg PO Q6H PRN pain #10 tabs 11/05/21 lisinopril 5 mg tablet 5 mg PO DAILY #90 tabs 12/23/21 apixaban 2.5 mg tablet 2.5 mg PO BID #180 tabs 01/20/22 clonidine HCl 0.1 mg tablet See Rx Instructions .Route 01/21/22 .COMPLEX #56 tabs clonidine HCl 0.2 mg tablet See Rx Instructions .Route 01/21/22 .COMPLEX #28 tabs cefdinir 300 mg capsule 300 mg PO BID 7 days #14 caps 03/26/22 lorazepam 0.5 mg tablet 0.5 mg PO BID anxiety #60 tabs 03/27/22 Results & Data (ED) Vital Signs Vital Signs - 24 hr 03/27/22 14:14 Temperature 36.4 C L Temperature Source Temporal Artery Scan Pulse Rate 81 Respiratory Rate 18 Respiratory Effort / Characteristics Non-Labored Spontaneous Respiratory Depth Normal Respiratory Pattern Regular Blood Pressure 184/79 H Blood Pressure Mean 114 Blood Pressure Position Sitting Pulse Oximetry 100 Oxygen Delivery Method Room Air Sepsis Recent Fever Within 48 Hours No Sepsis New/Unexplained Change in Mental Status No Sepsis Action Taken by Nursing No Action Required Laboratory Data 03/27/22 17:05 03/27/22 17:05 Lab Results 03/27/22 03/27/22 03/27/22 Range/Units 15:40 17:05 17:05 WBC 16.71 H (4.8-10.8) K/ul RBC 4.16 (3.93-5.22) M/uL Hgb 12.6 (12.0-16.0) g/dl Hct 36.9 (34.1-44.9) % MCV 88.7 (80.0-100.0) fL MCH 30.3 (25.0-34.0) pg MCHC 34.1 (32.0-36.0) g/dL RDW Std Deviation 41.6 (36.4-46.3) fL RDW Coeff of Kiersten 12.8 (11.5-14.5) % Plt Count 354 (130-400) K/uL MPV 9.9 (9.4-12.3) fL Immature Gran % (Auto) 0.5 % Neut % (Auto) 84.5 % Lymph % (Auto) 6.3 % [place] % (Auto) 8.3 % Eos % (Auto) 0.1 % Baso % (Auto) 0.3 % Neut # (Auto) 14.11 H (1.4-6.5) K/uL Lymph # (Auto) 1.06 L (1.2-3.4) K/uL [place] # (Auto) 1.39 H (0.24-0.82) K/uL Eos # (Auto) 0.02 (0-0.50) K/uL Baso # (Auto) 0.05 (0-0.2) K/uL Immature Gran # (Auto) 0.08 H (0.00-0.02) K/uL Sodium 130 L (136-145) mmol/L Potassium 4.7 (3.5-5.1) mmol/L Chloride 93 L (98-107) mmol/L Carbon Dioxide 31 (21-32) mmol/L Anion Gap 6 (3-11) BUN 18 (6-23) mg/dl Creatinine 1.18 (0.6-1.2) mg/dl Est Cr Clr Drug Dosing Not Reportable Est GFR ( Amer) 49.4 ml/min Est GFR (Non-Af Amer) 42.6 ml/min BUN/Creatinine Ratio 15.3 (10-20) Glucose 113 H (70-99(Fasting)) mg/dl Calcium 9.6 (8.5-10.1) mg/dl Total Bilirubin 0.5 (0.2-1.0) mg/dl AST 38 (13-39) U/L ALT 19 (7-52) U/L Alkaline Phosphatase 95 (34-104) U/L Total Protein 7.7 (6.0-8.3) gm/dl Albumin 4.1 (3.4-5.0) gm/dl Globulin 3.6 (2.5-4.0) gm/dl Albumin/Globulin Ratio 1.1 (0.9-2) Urine Color Yellow Urine Appearance Turbid A (Clear) Urine pH 7.0 (4.5-7.5) Ur Specific [place] 1.014 (1.000-1.030) Urine Protein 1+ H (Negative) Urine Glucose (UA) Negative (Negative) Urine Ketones Negative (Negative) Urine Blood Trace H (Negative) Urine Nitrite Negative (Negative) Urine Bilirubin Negative (Negative) Urine Urobilinogen Negative (Negative) Ur Leukocyte Esterase 3+ H (Negative) Urine WBC (Auto) >30 H (0-5) /hpf Urine RBC (Auto) 0-4 (0-4) /hpf U Hyaline Cast (Auto) 0 (0-5) /lpf U Epithel Cells (Auto) >30 H (0-5) /lpf Urine Bacteria (Auto) Negative (Negative) Imaging Data Radiologist's Impression: Head CT 03/27/22 14:18 CT OF THE HEAD WITHOUT CONTRAST CLINICAL HISTORY: Fall. COMPARISON STUDY: Head CTs November 05, 2021 and March 26, 2022. CT DOSE: 638.56 mGycm TECHNIQUE: Helical axial images of the head were obtained without IV contrast. Automated exposure control was utilized for the study. A dose lowering technique was utilized adhering to the principles of ALARA. FINDINGS: No acute intracranial hemorrhage, midline shift or mass effect is present. The ventricular system is unremarkable. The basal cisterns are patent. No extra-axial collections are present. There are no findings to suggest acute dural sinus thrombosis or acute territorial infarct. A right posterior scalp contusion is present. There is no acute calvarial fracture. The appearance of the brain is unchanged. IMPRESSION: 1. No acute intracranial findings. 2. Right posterior scalp contusion. No acute calvarial fracture. ACT 112: Negative or not required by law. Electronically signed by: Akil Cervantes M.D. 03/27/2022 3:[address] 03/27/22 14:19 CT cervical spine wo con CLINICAL HISTORY: fall TECHNIQUE: Multidetector row helical CT of the cervical spine was performed without administration of intravenous contrast. Coronal and sagittal reformations were obtained. Automated dose lowering techniques and/or adjustment according to patient size were utilized for this exam. Comparison: Comparison is made to CT cervical spine 03/26/2022 FINDINGS: No acute fractures or subluxations are identified. Degenerative changes are seen in the visualized spine most prominent at C5-C6. The alignment is normal. Calcified nodules are seen in the thyroid gland. Biapical scarring is seen in the lungs. IMPRESSION: Degenerative changes without evidence of acute bony injury. ACT 112: Negative or not required by law. Electronically signed by: Fabricio Marks M.D. 03/27/2022 3:50 PM Humerus X-Ray 03/27/22 14:20 XR humerus RT 2V CLINICAL HISTORY: fall TECHNIQUE: 2 radiographic views of the right humerus were obtained. Comparison: Comparison is made to right humerus radiographs 12/24/2014 FINDINGS: Old deformity of the right humerus is unchanged. The visualized portion of the shoulder and elbow joints are unremarkable. Mild osteopenia is seen. The overlying soft tissues are unremarkable. IMPRESSION: Old deformity of the right humerus is unchanged. No evidence of acute ab normality. ACT 112: Negative or not required by law. Electronically signed by: Fabricio Marks M.D. 03/27/2022 4:41 PM Chest X-Ray 03/27/22 17:46 XR chest 1V portable HISTORY: 81 years-old Female recurrent falls acute chest trauma status post fall COMPARISON: Chest radiograph March 26, 2019 TECHNIQUE: AP view of the chest FINDINGS: Cardiomediastinal and hilar silhouettes are unchanged. Left subclavian pacer. Unchanged pleural thickening of the lung apices. No pneumothorax, pleural effusion, airspace consolidation or overt pulmonary edema. Ovoid calcifications project over the abdominal right upper quadrant. Degenerative changes of the shoulders and spine. IMPRESSION: No acute process of the chest. ACT 112: Negative or not required by law. The above report was generated using voice recognition software. It may contain grammatical, syntax or spelling errors. Electronically signed by: Maurilio Patricio M.D. 03/27/2022 6:08 PM Discharge Plan Visit Data Chief Complaint: Fall Stated Complaint: patient keeps falling, hit her head, L arm injured ED Provider: Liz Rodriguez Discharge Problem: Recurrent falls, Ambulatory dysfunction, UTI (urinary tract infection) Forms Stand Alone Forms: CITTIO Prescriptions Prescriptions: No Action amlodipine 5 mg tablet 5 mg PO DAILY Qty: 90 3RF pantoprazole 20 mg tablet,delayed release (DR/EC) 20 mg PO DAILY Qty: 90 3RF spironolactone 25 mg tablet 25 mg PO Q OTHER DAY Qty: 45 3RF atorvastatin 10 mg tablet 10 mg PO Q2D Qty: 45 3RF lisinopril 5 mg tablet 5 mg PO DAILY Qty: 90 3RF apixaban 2.5 mg tablet 2.5 mg PO BID Qty: 180 3RF clonidine HCl 0.2 mg tablet See Rx Instructions .ROUTE .COMPLEX Qty: 28 11RF Dose Instruction: TAKE 1 TABLET BY MOUTH AT BEDTIME*HYPERTENSION* Rx Instructions: TAKE 1 TABLET BY MOUTH AT BEDTIME*HYPERTENSION* clonidine HCl 0.1 mg tablet See Rx Instructions .ROUTE .COMPLEX Qty: 56 11RF Dose Instruction: TAKE 1 TABLET BY MOUTH TWICE DAILY*HYPERTENSION* Rx Instructions: TAKE 1 TABLET BY MOUTH TWICE DAILY*HYPERTENSION* lorazepam 0.5 mg tablet 0.5 mg PO BID Qty: 60 5RF lidocaine 5 % ointment See Rx Instructions TOP .COMPLEX Qty: 30 0RF Rx Instructions: topical; Apply topically to affected area prn metoprolol succinate 100 mg tablet extended release 24 hr 100 mg PO BID calcium carbonate-vitamin D3 [Calcium 600 + D(3)] 600 mg(1,500mg) -400 unit tablet 1 tab PO BID docusate sodium 100 mg capsule 200 mg PO DAILY acetaminophen 325 mg tablet 650 mg PO Q4H PRN (Reason: fever or pain) polyethylene glycol 3350 17 gram powder in packet 17 gm PO DAILY PRN (Reason: constipation) (DME) miscellaneous medical supply misc See Dose Instructions .ROUTE .MEDSUPPLY Qty: 1 Rx Instructions: As directed carbidopa-levodopa 25-100 mg tablet 1 tab PO BID [id number] 25-100-200 mg tablet 0.5 tab PO HS nystatin 100,000 unit/gram cream 1 applic topical TID 10 Days Qty: 30 2RF Rx Instructions: Use under breast for 7-10 days multivitamin Tablet 1 tab PO DAILY ondansetron 4 mg tablet,disintegrating 4 mg PO Q6H PRN (Reason: nausea and vomiting) Qty: 14 0RF oxycodone 5 mg tablet 5 mg PO Q6H PRN (Reason: pain) Qty: 10 0RF cefdinir 300 mg capsule 300 mg PO BID 7 Days Qty: 14 0RF Referrals Referrals: Shanta Olivares MD [Primary Care Provider] -
--- NOTE | 2022-03-27 17:44 | History & Physical Report ---
Date of Service March 27, 2022 Assessment & Plan (1) Recurrent falls: Plan: No significant reversible etiology Patient does not want to reduce her lorazepam - continue to encourage reduction of this B12 level with AM labs PT/OT Case management to discuss rehab placement with family and patient (2) Parkinson disease: Plan: Continue her usual Sinemet (3) Acute UTI: Plan: Questionable diagnosis made yesterday Urine culture with mixed genesis Refused straight cath Suspected elevated WBC from stress of falls rather than acute infection as was not present yesterday Will continue cefdinir to complete her previous course of 7 days (4) Atrial fibrillation: Plan: Continue apixaban 2.5mg PO BID - consider stopping if she continues to be such a high falls risk Continue metoprolol succinate 100mg PO BID (5) Acid reflux disease: Plan: Continue pantoprazole 20 mg p.o. daily (6) Hypertension: Plan: Continue her usual medications: Amlodipine 5 mg p.o. daily, clonidine 0.1 mg p.o. twice daily, 0.2 mg p.o. at bedtime, lisinopril 5 mg p.o. daily, metoprolol succinate 100 mg p.o. twice daily, spironolactone 25 mg p.o. every other day. Plan VTE prophylaxis - Eliquis Diet - regular Disposition - admit to [facility] Admission and Anticipated Discharge Date Admission Date: March 27, 2022 History of Present Illness Chief Complaint: Recurrent falls Primary Care Provider: Shanta Olivares MD Shakila Manzo is an 81 year old female with Parkinson's and dementia who presents to the ER with recurrent falls. The patient was here yesterday for a fall and was for discharged back to assisted living. Reportedly fell a further 3 times today. No chest pain, shortness of breath or dizziness prior to falling. Falls due to being unsteady on her feet. Unable to get herself back up. Family understandably concerned with her returning to assisted living. She denies any injuries from the fall and is mostly concerned about getting her dinner. Diagnosis of UTI made yesterday although she denies any dysuria, change in urine color, smell or frequency. No back tenderness. No fever or chills. She wishes to stay on the same antibiotic she is on despite urine culture contaminated showing mixed genesis. She declines straight cath urine collection. Allergies Allergy/AdvReac Type Severity Reaction Status Date / Time diclofenac Allergy Unknown Unknown Verified 03/27/22 18:23 ciprofloxacin AdvReac Unknown "i get Verified 03/27/22 18:23 irregular heartbeat." Penicillins AdvReac Unknown Unknown Verified 03/27/22 18:23 Home Medications Medication Instructions Recorded Confirmed Type metoprolol succinate 100 mg 100 mg PO BID 09/29/18 03/27/22 History tablet,extended release 24 hr calcium carbonate 600 mg-vitamin 1 tab PO BID 11/07/18 03/27/22 History D3 10 mcg (400 unit) tablet (Calcium 600 + D(3)) docusate sodium 100 mg capsule 200 mg PO DAILY 11/07/18 03/27/22 History miscellaneous medical supply #1 ea 11/07/18 10/08/21 History polyethylene glycol 3350 17 gram 17 gm PO DAILY PRN constipation 11/07/18 03/27/22 History oral powder packet multivitamin 1 tab PO DAILY 08/13/19 03/27/22 History carbidopa 25 mg-levodopa 100 mg 1 tab PO TID 10/23/19 03/27/22 History tablet lidocaine 5 % topical ointment See Rx Instructions topical 03/20/21 03/27/22 Rx .COMPLEX #30 grams amlodipine 5 mg tablet 5 mg PO DAILY #90 tabs 07/11/21 03/27/22 Rx pantoprazole 20 mg tablet,delayed 20 mg PO DAILY #90 tabs 09/18/21 03/27/22 Rx release spironolactone 25 mg tablet 25 mg PO Q OTHER DAY #45 tabs 10/14/21 03/27/22 Rx atorvastatin 10 mg tablet 10 mg PO Q2D #45 tabs 10/27/21 03/27/22 Rx lisinopril 5 mg tablet 5 mg PO DAILY #90 tabs 12/23/21 03/27/22 Rx apixaban 2.5 mg tablet 2.5 mg PO BID #180 tabs 01/20/22 03/27/22 Rx cefdinir 300 mg capsule 300 mg PO BID 7 days #14 caps 03/26/22 03/27/22 Rx acetaminophen 500 mg tablet 1,000 mg PO QAM 03/27/22 03/27/22 History (Tylenol Extra Strength) acetaminophen 500 mg tablet 1,000 mg PO TID PRN Pain 03/27/22 03/27/22 History (Tylenol Extra Strength) clonidine HCl 0.1 mg tablet 0.1 mg PO BID 03/27/22 03/27/22 History clonidine HCl 0.2 mg tablet 0.2 mg PO HS 03/27/22 03/27/22 History lorazepam 0.5 mg tablet 0.5 mg PO BID PRN Anxiety 03/27/22 03/27/22 History lorazepam 0.5 mg tablet 0.5 mg PO BID anxiety #60 tabs 03/27/22 03/27/22 Rx Past Med/Surg History Medical History Acid reflux disease Allergic rhinitis Bronchiectasis CAD (coronary artery disease) Cancer of left kidney (2003) Cardiac pacemaker (2009) Chronic constipation Closed fracture of left proximal humerus Cystocele Cystocele, midline Ear pain, left History of basal cell carcinoma History of squamous cell carcinoma in situ of skin Hyperlipidemia Hypertension Left bundle branch block Nephrolithiasis (2011) Nontoxic multinodular goiter (2011) Osteoporosis (2012) PAD (peripheral artery disease) Pancreatic cyst Parkinson disease Paroxysmal A-fib Postmenopausal status Premature ventricular contractions Rectocele Reflux Right ovarian cyst Sick sinus syndrome Stage III chronic kidney disease (2006) Surgical History Elective replacement indicated for cardiac pacemaker battery at end of lifespan (2018) H/O partial nephrectomy (2003) S/P breast lumpectomy S/P cardiac pacemaker procedure (2009) S/P Mohs surgery for basal cell carcinoma Family History Brother Diabetes Grandfather (Maternal) Myocardial infarction Father Lung cancer Mother Stroke Hypertension Denies family history of Ovarian cancer Prostate cancer Breast cancer Colorectal cancer Social History Smoking Status: Unknown if ever smoked Second Hand Exposure: Yes; Hx Alcohol Use: No Hx Substance Use: No Preferred Language: Bolivian Communication Ability: Effective Visual Impairment: No Limitations Hearing Ability: Hard of Hearing Hook Up Driver Required: No Beliefs That Will Affect Care: None marital status: / Current Living Situation: Personal Care Facility Current Living Situation Comment: [facility] current occupational status: retired Other Information That Helps Us Care for You: No Feels Safe at Home: Yes Safety Concerns: Feels Safe At This Time Childhood Exposure to Second-Hand Smoke: Yes Dental Care, Regularly: Yes Physical Activity Frequency: 1-2 Times per Week Seatbelt Use: always Sunscreen Use: Yes Assistive Devices: Glasses Review of Systems Review of Systems: All systems reviewed & are unremarkable except as noted in HPI & below Physical Exam Constitutional: well developed; + not well nourished and no acute distress Respiratory: normal respiratory effort, lungs clear to auscultation Cardiovascular: Rate/Rhythm: regular rate and + irregularly irregular Gastrointestinal (Abdomen): normal bowel sounds, soft, nontender, no hepatosplenomegaly Musculoskeletal: no cyanosis or clubbing, extremities motor strength 5/5 Skin: no rashes, warm and dry Neurologic: moves all extremities and awake; no focal motor deficits and not confused Speech / Cognition: normal speech Motor/Sensory: + tremor (resting b/l) Coordination: + abnormal avorfx-up-ukim test (b/l equal) Psychiatric: Orientation: alert and oriented x 3 Results & Data Results & Data ([facility]) Vital Signs (Past 12 Hours) Vital Signs Temp Pulse Resp BP Pulse Ox O2 Del Method 03/27/22 14:14 36.4 C L 81 18 184/79 H 100 Room Air Laboratory Results Abnormal lab results 03/27/22 03/27/22 Range/Units 15:40 17:05 WBC 16.71 H (4.8-10.8) K/ul Neut # (Auto) 14.11 H (1.4-6.5) K/uL Lymph # (Auto) 1.06 L (1.2-3.4) K/uL Tripp # (Auto) 1.39 H (0.24-0.82) K/uL Immature Gran # (Auto) 0.08 H (0.00-0.02) K/uL Urine Appearance Turbid A (Clear) Urine Protein 1+ H (Negative) Urine Blood Trace H (Negative) Ur Leukocyte Esterase 3+ H (Negative) Urine WBC (Auto) >30 H (0-5) /hpf U Epithel Cells (Auto) >30 H (0-5) /lpf Diagnostic Findings CT OF THE HEAD WITHOUT CONTRAST CLINICAL HISTORY: Fall. COMPARISON STUDY: Head CTs November 05, 2021 and March 26, 2022. CT DOSE: 638.56 mGycm TECHNIQUE: Helical axial images of the head were obtained without IV contrast. Automated exposure control was utilized for the study. A dose lowering technique was utilized adhering to the principles of ALARA. FINDINGS: No acute intracranial hemorrhage, midline shift or mass effect is present. The ventricular system is unremarkable. The basal cisterns are patent. No extra-axial collections are present. There are no findings to suggest acute dural sinus thrombosis or acute territorial infarct. A right posterior scalp contusion is present. There is no acute calvarial fracture. The appearance of the brain is unchanged. IMPRESSION: 1. No acute intracranial findings. 2. Right posterior scalp contusion. No acute calvarial fracture. CT cervical spine wo con CLINICAL HISTORY: fall TECHNIQUE: Multidetector row helical CT of the cervical spine was performed without administration of intravenous contrast. Coronal and sagittal reformations were obtained. Automated dose lowering techniques and/or adjustment according to patient size were utilized for this exam. Comparison: Comparison is made to CT cervical spine 03/26/2022 FINDINGS: No acute fractures or subluxations are identified. Degenerative changes are seen in the visualized spine most prominent at C5-C6. The alignment is normal. Calcified nodules are seen in the thyroid gland. Biapical scarring is seen in the lungs. IMPRESSION: Degenerative changes without evidence of acute bony injury. XR humerus RT 2V CLINICAL HISTORY: fall TECHNIQUE: 2 radiographic views of the right humerus were obtained. Comparison: Comparison is made to right humerus radiographs 12/24/2014 FINDINGS: Old deformity of the right humerus is unchanged. The visualized portion of the shoulder and elbow joints are unremarkable. Mild osteopenia is seen. The overlying soft tissues are unremarkable. IMPRESSION: Old deformity of the right humerus is unchanged. No evidence of acute abnormality. Medications Administered ER medications given: None ECG Indication: other (Falls) Rate (beats per minute): 84 Rhythm: normal sinus (possible, poor quality makes intepretation difficult) Findings: no acute ischemic change Comparison ECG Date: from (Mar 26, 2022) Code Status & VTE Plan Code Status Full VTE Prophylaxis Plan VTE Prophylaxis will be ordered: Yes PG Care Time/CCT Total # of Minutes Spent Total Time Spent with Patient: Total time spent is greater than 50% in coordination of care (as documented) at patient's floor/unit and/or counseling patient: Coding Level of Care Code 53654 INT INP/OBS CARE Diagnoses Recurrent falls R29.6 Parkinson disease G20 Acute UTI N39.0 Atrial fibrillation I48.11 Atrial fibrillation type: longstanding persistent Acid reflux disease K21.9 Hypertension I10 (1) Atrial fibrillation Atrial fibrillation type: longstanding persistent Qualified Code(s): I48.11 - Longstanding persistent atrial fibrillation
[2022-03-27 17:52] LABS: Alanine Aminotransferase 19 U/L (7-52); Albumin Globulin Ratio 1.1 (0.9-2); Albumin Level 4.1 gm/dl (3.4-5.0); Alkaline Phosphatase 95 U/L (34-104); Anion Gap 6 (3-11); Aspartate Aminotransferase 38 U/L (13-39); BUN Creatinine Ratio 15.3 (10-20); Bilirubin,Total 0.5 mg/dl (0.2-1.0); Blood Urea Nitrogen 18 mg/dl (6-23); Calcium 9.6 mg/dl (8.5-10.1); Carbon Dioxide 31 mmol/L (21-32); Chloride 93 mmol/L (98-107); Est GFR (African American) 49.4 ml/min; Est GFR (Non-African American) 42.6 ml/min; Globulin 3.6 gm/dl (2.5-4.0); Glucose 113 mg/dl (70-99(Fasting)); Potassium 4.7 mmol/L (3.5-5.1); Sodium 130 mmol/L (136-145); Total Protein 7.7 gm/dl (6.0-8.3)
--- NOTE | 2022-03-27 18:10 | XRay Report ---
XR chest 1V portable HISTORY: 81 years-old Female recurrent falls acute chest trauma status post fall COMPARISON: Chest radiograph March 26, 2019 TECHNIQUE: AP view of the chest FINDINGS: Cardiomediastinal and hilar silhouettes are unchanged. Left subclavian pacer. Unchanged pleural thick ening of the lung apices. No pneumothorax, pleural effusion, airspace consolidation or overt pulmonar y edema. Ovoid calcifications project over the abdominal right upper quadrant. Degenerative changes o f the shoulders and spine. IMPRESSION: No acute process of the chest. ACT 112: Negative or not required by law. The above report was generated using voice recognition software. It may contain grammatical, syntax o r spelling errors. Electronically signed by: Maurilio Patricio M.D. 03/27/2022 6:08 PM
[2022-03-27] MEDS ORDERED: CARBIDOPA/LEVODOPA 25/100MG TAB PO STA (18:30)
[2022-03-27] MEDS ORDERED: cloNIDine HCL 0.1 MG TAB PO STA (19:33)
[2022-03-27] MEDS ORDERED: ACETAMINOPHEN 500 MG TAB PO PRN (22:41)
[2022-03-27] MEDS ORDERED: POLYETHYLENE (MIRALAX) 17 GM PACK PO PRN (22:41)
[2022-03-27] MEDS ORDERED: cloNIDine HCL 0.1 MG TAB PO SCH (22:41)
[2022-03-27] MEDS: CARBIDOPA/LEVODOPA 25/100MG TAB PO SCH (23:00)
[2022-03-27] MEDS: LORazepam 0.5 MG TAB PO SCH (23:24)
[2022-03-27] MEDS: ACETAMINOPHEN 325 MG TAB PO PRN (23:24)
[2022-03-27] MEDS: APIXABAN 2.5 MG TAB PO SCH (23:25)
[2022-03-27] MEDS: cloNIDine HCL 0.1 MG TAB PO SCH (23:25)
[2022-03-27] MEDS: CEFDINIR 300 MG CAP PO SCH (23:25)
[2022-03-27] MEDS: METOPROLOL SUCC 50MG EXT REL TAB PO SCH (23:25)
[2022-03-27] MEDS: ATORVASTATIN 10 MG TAB PO SCH (23:25)
[2022-03-28] MEDS: ACETAMINOPHEN 325 MG TAB PO PRN (06:13)
[2022-03-28 07:27] LABS: Basophils # (auto) 0.04 K/uL (0-0.2); Basophils % (auto) 0.4 %; Eosinophils # (auto) 0.03 K/uL (0-0.50); Eosinophils % (auto) 0.3 %; Hematocrit (blood only) 34.9 % (34.1-44.9); Hemoglobin 11.8 g/dl (12.0-16.0); Immature Granulocytes # (auto) 0.03 K/uL (0.00-0.02); Immature Granulocytes % (auto) 0.3 %; Lymphocytes # (auto) 1.37 K/uL (1.2-3.4); Lymphocytes % (auto) 14.9 %; Mean Corpuscular Hgb Conc 33.8 g/dL (32.0-36.0); Mean Corpuscular Volume 88.8 fL (80.0-100.0); Mean Platelet Volume 10.1 fL (9.4-12.3); Monocytes # (auto) 0.93 K/uL (0.24-0.82); Monocytes % (auto) 10.1 %; Neutrophils # (auto) 6.78 K/uL (1.4-6.5); Platelet Count 330 K/uL (130-400); RDW Coefficient of Variation 12.6 % (11.5-14.5); RDW Standard Deviation 41.4 fL (36.4-46.3); Red Blood Count 3.93 M/uL (3.93-5.22); White Blood Count 9.18 K/ul (4.8-10.8)
--- NOTE | 2022-03-28 07:39 | Hospitalist Progress Note ---
Date of Service March 28, 2022 Assessment & Plan (1) Recurrent falls: Plan: No significant reversible etiology Patient does not want to reduce her lorazepam - continue to encourage reduction of this B12 level was normal at 797 PT/OT evaluation ordered Patient with bilateral foot/heel pain may be contributing to her falls Case management to discuss rehab placement with family and patient (2) Parkinson disease: Plan: Continue her usual Sinemet (3) Acute UTI: Plan: Questionable diagnosis made yesterday Urine culture with mixed genesis and pin point growth - Reincubating WBC improved today - likely was elevated yesterday due to acute phase reactant due to falls Will continue cefdinir to complete her previous course of 7 days (4) Atrial fibrillation: Plan: Continue apixaban 2.5mg PO BID - consider stopping if she continues to be such a high falls risk Continue metoprolol succinate 100mg PO BID (5) Acid reflux disease: Plan: Continue pantoprazole 20 mg p.o. daily (6) Hypertension: Plan: Continue her usual medications: Amlodipine 5 mg p.o. daily, clonidine 0.1 mg p.o. twice daily, 0.2 mg p.o. at bedtime, lisinopril 5 mg p.o. daily, metoprolol succinate 100 mg p.o. twice daily, spironolactone 25 mg p.o. every other day. (7) Heel pain, bilateral: Plan: May be contributing to her falls will await PT evaluation of her gait Plan VTE prophylaxis - Eliquis Diet - regular Disposition - admit to [facility] Awaiting PT/OT evaluations (patient refused OT today) CM is working with patient's son regarding possible LTC with [place] Admission and Anticipated Discharge Date Admission Date: March 27, 2022 Subjective Patient was awake sitting up in bed taking her morning pills. She tells me that she was having multiple falls and that is why she was brought back to the ER. She tells me that she fell about 4 times and she attributes the falls to the fact that she was using her cane and not her walker. She denies any LOC but did hit her left scalp and left ear with one fall and her right skull with the other fall. She states those areas hurt when touched. She deneis any LOC, nausea or vomiting. She also tells me that she was diagnosed with a UTI and is on antibiotics. Review of Systems Constitutional: + fatigue and + weakness; no fever and no chills Respiratory: no cough, no chest congestion and no dyspnea Cardiovascular: no chest pain, no dyspnea, no lightheadedness and no calf pain Gastrointestinal: no abdominal pain, no nausea and no vomiting Integumentary: contusion left ear, and left and right head Neurologic: + gait abnormality, + falls, + localized weakness and + tremor(s); no paralysis, no numbness, no seizure-like activity and no headache(s) Psychiatric: no depression, no irritability, no suicidal ideation and no panic attacks Physical Exam Constitutional: + thin, + frail appearing, cooperative and comfortable Neck: trachea midline, no thyromegaly Respiratory: normal respiratory effort, lungs clear to auscultation Cardiovascular: Rate/Rhythm: regular rate and regular rhythm Heart Sounds: + murmur (apical holosystolic murmur) DP, PT and popliteal pulses +2 and symmetric Musculoskeletal: bilateral feet pain, arthritis changes noted, onychomycosis toe nails, tender to palpation heels, no pressure ulcers/sores Skin: contusion/hematoma left and right head, left ear contusion, left neck ecchymoses Neurologic: patellar DTR's 2+ bilat, sensation intact and PERRL, EOMI, accom modation nl, no face palsy, no dysarthria Results & Data Results & [facility] ([facility]) Vital Signs (Past 12 Hours) Vital Signs Temp Pulse Pulse Pulse Resp BP BP 03/28/22 01:20 67 155/62 H 03/27/22 22:30 37.3 C 89 16 200/80 H 03/27/22 21:46 85 18 147/77 H Pulse Ox O2 Del Method 03/28/22 01:20 03/27/22 22:30 93 Room Air 03/27/22 21:46 96 Room Air PG Care Time/CCT Total # of Minutes Spent Total Time Spent with Patient: Total time spent is greater than 50% in coordination of care (as documented) at patient's floor/unit and/or counseling patient: Coding Level of Care Code 33114 SUB INP/OBS CARE 04/08MIN Diagnoses Recurrent falls R29.6 Parkinson disease G20 Acute UTI N39.0 Atrial fibrillation I48.11 Atrial fibrillation type: longstanding persistent Acid reflux disease K21.9 Hypertension I10 Heel pain, bilateral M79.671; M79.672 (1) Atrial fibrillation Atrial fibrillation type: longstanding persistent Qualified Code(s): I48.11 - Longstanding persistent atrial fibrillation
[2022-03-28 07:48] LABS: Calcium 8.9 mg/dl (8.5-10.1); Creatinine Clr Calc Pharmacy 31.3 ml/min; Est GFR (African American) 60.3 ml/min; Est GFR (Non-African American) 52.1 ml/min
[2022-03-28] MEDS: APIXABAN 2.5 MG TAB PO SCH ×2 (08:21→16:43)
[2022-03-28] MEDS: amLODIPine BESYLATE 5 MG TAB PO SCH (08:22)
[2022-03-28] MEDS: cloNIDine HCL 0.1 MG TAB PO SCH ×3 (08:22→20:15)
[2022-03-28] MEDS: lisinopril 5 MG TAB PO SCH (08:22)
[2022-03-28] MEDS: CEFDINIR 300 MG CAP PO SCH ×2 (08:22→20:15)
[2022-03-28] MEDS: METOPROLOL SUCC 50MG EXT REL TAB PO SCH ×2 (08:22→20:15)
[2022-03-28] MEDS: CALCIUM 600MG + VIT D 400 IU TAB PO SCH ×2 (08:23→20:15)
[2022-03-28] MEDS: PANTOprazole 40 MG TAB PO SCH (08:23)
[2022-03-28] MEDS: CARBIDOPA/LEVODOPA 25/100MG TAB PO SCH ×3 (08:23→20:15)
[2022-03-28] MEDS: ACETAMINOPHEN 500 MG TAB PO SCH (08:23)
[2022-03-28] MEDS: MULTIVITAMIN TAB PO SCH (08:24)
[2022-03-28] MEDS: DOCUSATE SODIUM 100 MG CAP PO SCH (08:24)
[2022-03-28] MEDS: SPIRONOLACTONE 25 MG TAB PO SCH (08:24)
[2022-03-28] MEDS: LORazepam 0.5 MG TAB PO SCH ×2 (10:18→20:14)
[2022-03-29] MEDS: ACETAMINOPHEN 500 MG TAB PO SCH (06:37)
--- NOTE | 2022-03-29 07:53 | Hospitalist Progress Note ---
Date of Service March 29, 2022 Assessment & Plan (1) Recurrent falls: Plan: No significant reversible etiology Patient does not want to reduce her lorazepam - continue to encourage reduction of this B12 level was normal at 797 Patient with bilateral foot/heel pain may be contributing to her falls Case management to discuss rehab placement with family and patient Family considering rehab vs termite control servicer care Awaiting PT/OT evaluation (2) Parkinson disease: Plan: Continue her usual Sinemet (3) Acute UTI: Plan: Questionable diagnosis made Urine culture with mixed probable skin genesis WBC improved - likely was elevated on admission due to acute phase reactant due to falls Will stop Cefdinir (urine culture negative) (4) Atrial fibrillation: Plan: Continue apixaban 2.5mg PO BID - consider stopping if she continues to be such a high falls risk Continue metoprolol succinate 100mg PO BID (5) Acid reflux disease: Plan: Continue pantoprazole 20 mg p.o. daily (6) Hypertension: Plan: Continue her usual medications: Amlodipine 5 mg p.o. daily, clonidine 0.1 mg p.o. twice daily, 0.2 mg p.o. at bedtime, lisinopril 5 mg p.o. daily, metoprolol succinate 100 mg p.o. twice daily, spironolactone 25 mg p.o. every other day. (7) Heel pain, bilateral: Plan: May be contributing to her falls will await PT evaluation of her gait Plan VTE prophylaxis - Eliquis Diet - regular Disposition - admit to [facility] Awaiting PT/OT evaluations (patient refused OT today) CM is working with patient's son regarding possible LTC with [place] Admission and Anticipated Discharge Date Admission Date: March 27, 2022 Subjective Patient was awake in bed. She had no complaints except that she was mad that she doesn't get her AM medications until 9 AM here in the hospital. She tells me that her feet feel better today than yesterday. Review of Systems Constitutional: + fatigue and + weakness; no fever and no chills Respiratory: no cough, no chest congestion and no dyspnea Cardiovascular: no chest pain, no dyspnea, no lightheadedness and no calf pain Gastrointestinal: no abdominal pain, no nausea and no vomiting Integumentary: contusion left ear, and left and right head Neurologic: + gait abnormality, + falls, + localized weakness and + tremor(s); no paralysis, no numbness, no seizure-like activity and no headache(s) Psychiatric: no depression, no irritability, no suicidal ideation and no panic attacks Physical Exam Constitutional: + thin, + frail appearing, cooperative and comfortable Neck: trachea midline, no thyromegaly Respiratory: normal respiratory effort, lungs clear to auscultation Cardiovascular: Rate/Rhythm: regular rate and regular rhythm Heart Sounds: + murmur (apical holosystolic murmur) Gastrointestinal (Abdomen): normal bowel sounds, soft, nontender, no hepatosplenomegaly Neurologic: patellar DTR's 2+ bilat, sensation intact and PERRL, EOMI, accommodation nl, no face palsy, no dysarthria Psychiatric: Orientation: alert, oriented to person and oriented to place Results & Data Results & Data ([facility]) Vital Signs (Past 12 Hours) Vital Signs Temp Pulse Pulse Resp BP BP Pulse Ox 03/29/22 07:26 36.8 C 66 16 187/65 H 183/69 H 92 03/28/22 20:13 37 C 67 16 151/66 H 96 O2 Del Method 03/29/22 07:26 Room Air 03/28/22 20:13 Room Air PG Care Time/CCT Total # of Minutes Spent Total Time Spent with Patient: Total time spent is greater than 50% in coordination of care (as documented) at patient's floor/unit and/or counseling patient: Coding Level of Care Code 71845 SUB INP/OBS CARE 1/25MIN Diagnoses Recurrent falls R29.6 Parkinson disease G20 Acute UTI N39.0 Atrial fibrillation I48.11 Atrial fibrillation type: longstanding persistent Acid reflux disease K21.9 Hypertension I10 Heel pain, bilateral M79.671; M79.672 (1) Atrial fibrillation Atrial fibrillation type: longstanding persistent Qualified Code(s): I48.11 - Longstanding persistent atrial fibrillation
[2022-03-29] MEDS: cloNIDine HCL 0.1 MG TAB PO SCH ×3 (07:56→20:24)
[2022-03-29] MEDS: amLODIPine BESYLATE 5 MG TAB PO SCH (09:46)
[2022-03-29] MEDS: lisinopril 5 MG TAB PO SCH (09:46)
[2022-03-29] MEDS: CARBIDOPA/LEVODOPA 25/100MG TAB PO SCH ×3 (09:47→20:23)
[2022-03-29] MEDS: METOPROLOL SUCC 50MG EXT REL TAB PO SCH ×2 (09:47→20:23)
[2022-03-29] MEDS: CEFDINIR 300 MG CAP PO SCH (09:47)
[2022-03-29] MEDS: CALCIUM 600MG + VIT D 400 IU TAB PO SCH ×2 (09:47→20:23)
[2022-03-29] MEDS: PANTOprazole 40 MG TAB PO SCH (09:48)
[2022-03-29] MEDS: DOCUSATE SODIUM 100 MG CAP PO SCH (09:48)
[2022-03-29] MEDS: APIXABAN 2.5 MG TAB PO SCH ×2 (09:48→16:06)
[2022-03-29] MEDS: MULTIVITAMIN TAB PO SCH (09:48)
[2022-03-29] MEDS: LORazepam 0.5 MG TAB PO SCH ×2 (09:59→20:23)
--- NOTE | 2022-03-29 21:01 | Electrocardiogram Report ---
Test Reason : Blood Pressure : / mmHG Vent. Rate : 084 BPM Atrial Rate : 084 BPM P-R Int : 164 ms QRS Dur : 148 ms QT Int : 460 ms P-R-T Axes : 010 -60 106 degrees QTc Int : 543 ms Poor data quality, interpretation may be adversely affected Normal sinus rhythm Left axis deviation Left bundle branch block Abnormal ECG When compared with ECG of 26-MAR-2022 07:18, Sinus rhythm has replaced Atrial fibrillation Left bundle branch block has replaced Right bundle branch block Confirmed by Adair Justice ([id number] on 03/29/2022 9:00:38 PM Referred By: REFERRED SELF Confirmed By:Adair Justice
[2022-03-29] MEDS: ATORVASTATIN 10 MG TAB PO SCH ×2 (23:38→23:40)
[2022-03-30 07:59] LABS: Hematocrit (blood only) 32.1 % (34.1-44.9); Hemoglobin 10.9 g/dl (12.0-16.0); Mean Corpuscular Hemoglobin 29.9 pg (25.0-34.0); Mean Corpuscular Volume 87.9 fL (80.0-100.0); Platelet Count 300 K/uL (130-400); RDW Coefficient of Variation 12.5 % (11.5-14.5); RDW Standard Deviation 40.5 fL (36.4-46.3); Red Blood Count 3.65 M/uL (3.93-5.22); White Blood Count 8.45 K/ul (4.8-10.8)
[2022-03-30 08:24] LABS: BUN Creatinine Ratio 15.6 (10-20); Creatinine Clr Calc Pharmacy 32.6 ml/min; Est GFR (African American) 63.4 ml/min; Est GFR (Non-African American) 54.7 ml/min; Potassium 4.2 mmol/L (3.5-5.1)
[2022-03-30] MEDS: SPIRONOLACTONE 25 MG TAB PO SCH (08:32)
[2022-03-30] MEDS: LORazepam 0.5 MG TAB PO SCH ×2 (08:32→20:06)
[2022-03-30] MEDS: PANTOprazole 40 MG TAB PO SCH (08:32)
[2022-03-30] MEDS: DOCUSATE SODIUM 100 MG CAP PO SCH (08:33)
[2022-03-30] MEDS: ACETAMINOPHEN 500 MG TAB PO SCH (08:33)
[2022-03-30] MEDS: MULTIVITAMIN TAB PO SCH (08:33)
[2022-03-30] MEDS: CALCIUM 600MG + VIT D 400 IU TAB PO SCH ×2 (08:33→20:07)
[2022-03-30] MEDS: METOPROLOL SUCC 50MG EXT REL TAB PO SCH ×2 (08:33→20:06)
[2022-03-30] MEDS: amLODIPine BESYLATE 5 MG TAB PO SCH (08:33)
[2022-03-30] MEDS: lisinopril 5 MG TAB PO SCH (08:33)
[2022-03-30] MEDS: CARBIDOPA/LEVODOPA 25/100MG TAB PO SCH ×3 (08:33→20:07)
[2022-03-30] MEDS: cloNIDine HCL 0.1 MG TAB PO SCH ×3 (08:34→20:07)
[2022-03-30] MEDS: APIXABAN 2.5 MG TAB PO SCH ×2 (08:34→16:04)
--- NOTE | 2022-03-30 15:21 | Hospitalist Progress Note ---
Date of Service March 30, 2022 Assessment & Plan (1) Recurrent falls: Plan: No significant reversible etiology Patient does not want to reduce her lorazepam - continue to encourage reduction of this B12 level was normal at 797 Patient with bilateral foot/heel pain may be contributing to her falls Case management to discuss rehab placement with family and patient Family wihes to have patient placed at [facility] , AMINATA working on placement Continue PT/OT (2) Parkinson disease: Plan: Continue her usual Sinemet (3) Acute UTI: Plan: Questionable diagnosis made Urine culture with mixed probable skin genesis WBC improved - likely was elevated on admission due to acute phase reactant due to falls Will stop Cefdinir (urine culture negative) (4) Atrial fibrillation: Plan: Continue apixaban 2.5mg PO BID - consider stopping if she continues to be such a high falls risk Continue metoprolol succinate 100mg PO BID (5) Acid reflux disease: Plan: Continue pantoprazole 20 mg p.o. daily (6) Hypertension: Plan: Continue her usual medications: Amlodipine 5 mg p.o. daily, clonidine 0.1 mg p.o. twice daily, 0.2 mg p.o. at bedtime, lisinopril 5 mg p.o. daily, metoprolol succinate 100 mg p.o. twice daily, spironolactone 25 mg p.o. every other day. (7) Heel pain, bilateral: Plan: May be contributing to her falls will await PT evaluation of her gait Plan VTE prophylaxis - Eliquis Diet - regular Disposition - admit to [facility] Awaiting PT/OT evaluations (patient refused OT today) AMINATA is working with patient's son regarding possible LTC with [facility] Admission and Anticipated Discharge Date Admission Date: March 27, 2022 Subjective Patient was awake in bed. Her son and DIL were at bedside. I discussed in length with them regarding patient's health and the need for SNF. They were in agreeance and wanted her to go to [facility]. they stated she was there in the past and loved it. AMINATA is working on placement. Patient has no complaints currently. she was having bilateral heel pain and was given Tylenol and this since has resolved. Review of Systems Constitutional: + fatigue and + weakness; no fever and no chills Respiratory: no cough, no chest congestion and no dyspnea Cardiovascular: no chest pain, no dyspnea, no lightheadedness and no calf pain Gastrointestinal: no abdominal pain, no nausea and no vomiting Musculoskeletal: bilateral heel pain Integumentary: contusion left ear, and left and right head Neurologic: + gait abnormality, + falls, + localized weakness and + tremor(s); no paralysis, no numbness, no seizure-like activity and no headache(s) Psychiatric: no depression, no irritability, no suicidal ideation and no panic attacks Physical Exam Constitutional: + thin, + frail appearing, cooperative and comfortable Neck: trachea midline, no thyromegaly Respiratory: normal respiratory effort, lungs clear to auscultation Cardiovascular: Rate/Rhythm: regular rate and regular rhythm Heart Sounds: + murmur (apical holosystolic murmur) Gastrointestinal (Abdomen): normal bowel sounds, soft, nontender, no hepatosplenomegaly Skin: feet examined, iliana cracking of the skin right toe and left heel. + onychomycosis toes no other wounds or lesions, arthritic changes noted Neurologic: patellar DTR's 2+ bilat, sensation intact and PERRL, EOMI, accommodation nl, no face palsy, no dysarthria Psychiatric: Orientation: alert, oriented to person and oriented to place Results & Data Results & Data ([facility]) Vital Signs (Past 12 Hours) Vital Signs Temp Pulse Pulse Resp BP Pulse Ox O2 Del Method 03/30/22 15:02 36.8 C 65 18 125/68 96 Room Air 03/30/22 08:01 36.8 C 66 18 207/65 H 96 Room Air 03/30/22 05:10 60 171/69 H Laboratory Results Abnormal lab results 03/30/22 03/30/22 Range/Units 07:32 07:32 RBC 3.65 L (3.93-5.22) M/uL Hgb 10.9 L (12.0-16.0) g/dl Hct 32.1 L (34.1-44.9) % Sodium 128 L (136-145) mmol/L Chloride 94 L (98-107) mmol/L Glucose 100 H (70-99(Fasting)) mg/dl PG Care Time/CCT Total # of Minutes Spent Total Time Spent with Patient: Total time spent is greater than 50% in coordination of care (as documented) at patient's floor/unit and/or counseling patient: Coding Level of Care Code 12277 SUB INP/OBS CARE Diagnoses Recurrent falls R29.6 Parkinson disease G20 Acute UTI N39.0 Atrial fibrillation I48.11 Atrial fibrillation type: longstanding persistent Acid reflux disease K21.9 Hypertension I10 Heel pain, bilateral M79.671; M79.672 (1) Atrial fibrillation Atrial fibrillation type: longstanding persistent Qualified Code(s): I48.11 - Longstanding persistent atrial fibrillation
[2022-03-30] MEDS: ACETAMINOPHEN 325 MG TAB PO PRN (21:05)
[2022-03-31] MEDS: ACETAMINOPHEN 325 MG TAB PO PRN ×2 (02:50→06:21)
[2022-03-31 07:34] LABS: Hematocrit (blood only) 32.2 % (34.1-44.9); Mean Corpuscular Hemoglobin 30.1 pg (25.0-34.0); Mean Corpuscular Hgb Conc 34.2 g/dL (32.0-36.0); Mean Corpuscular Volume 88.2 fL (80.0-100.0); Mean Platelet Volume 9.9 fL (9.4-12.3); Platelet Count 319 K/uL (130-400); RDW Coefficient of Variation 12.5 % (11.5-14.5); RDW Standard Deviation 40.3 fL (36.4-46.3); Red Blood Count 3.65 M/uL (3.93-5.22); White Blood Count 7.39 K/ul (4.8-10.8)
[2022-03-31 08:00] LABS: BUN Creatinine Ratio 18.1 (10-20); Calcium 8.9 mg/dl (8.5-10.1); Creatinine Clr Calc Pharmacy 29.8 ml/min; Est GFR (African American) 56.9 ml/min; Est GFR (Non-African American) 49.1 ml/min; Potassium 4.2 mmol/L (3.5-5.1)
[2022-03-31] MEDS: DOCUSATE SODIUM 100 MG CAP PO SCH (08:37)
[2022-03-31] MEDS: METOPROLOL SUCC 50MG EXT REL TAB PO SCH ×2 (08:37→19:36)
[2022-03-31] MEDS: CALCIUM 600MG + VIT D 400 IU TAB PO SCH ×2 (08:38→19:36)
[2022-03-31] MEDS: MULTIVITAMIN TAB PO SCH (08:38)
[2022-03-31] MEDS: lisinopril 5 MG TAB PO SCH (08:38)
[2022-03-31] MEDS: amLODIPine BESYLATE 5 MG TAB PO SCH (08:38)
[2022-03-31] MEDS: CARBIDOPA/LEVODOPA 25/100MG TAB PO SCH ×3 (08:38→19:36)
[2022-03-31] MEDS: PANTOprazole 40 MG TAB PO SCH (08:38)
[2022-03-31] MEDS: APIXABAN 2.5 MG TAB PO SCH ×2 (08:38→16:05)
[2022-03-31] MEDS: cloNIDine HCL 0.1 MG TAB PO SCH ×3 (08:38→19:36)
[2022-03-31] MEDS: ACETAMINOPHEN 500 MG TAB PO SCH (08:38)
[2022-03-31] MEDS: LORazepam 0.5 MG TAB PO SCH ×2 (08:39→19:43)
--- NOTE | 2022-03-31 13:49 | Hospitalist Progress Note ---
Date of Service March 31, 2022 Assessment & Plan (1) Recurrent falls: Plan: No significant reversible etiology Patient does not want to reduce her lorazepam - continue to encourage reduction of this B12 level was normal at 797 Patient with bilateral foot/heel pain may be contributing to her falls Decreased dital pulses Check RYLEE bilaterally Also likely that patient's Parkinsons may also be affecting her gait and causing falls Case management to discuss rehab placement with family and patient Family wishes to have patient placed at [place] , AMINATA working on placement Continue PT/OT (2) Parkinson disease: Plan: Continue her usual Sinemet (3) Acute UTI: Plan: Questionable diagnosis made Urine culture with mixed probable skin genesis WBC improved - likely was elevated on admission due to acute phase reactant due to falls Will stop Cefdinir (urine culture negative) (4) Atrial fibrillation: Plan: Continue apixaban 2.5mg PO BID - consider stopping if she continues to be such a high falls risk Continue metoprolol succinate 100mg PO BID (5) Acid reflux disease: Plan: Continue pantoprazole 20 mg p.o. daily (6) Hypertension: Plan: Continue her usual medications: Amlodipine 5 mg p.o. daily, clonidine 0.1 mg p.o. twice daily, 0.2 mg p.o. at bedtime, lisinopril 5 mg p.o. daily, metoprolol succinate 100 mg p.o. twice daily, spironolactone 25 mg p.o. every other day. (7) Heel pain, bilateral: Plan: May be contributing to her falls will await PT evaluation of her gait Check Ankle Brachial Index (decreased distal pulses) (8) Severe protein-calorie malnutrition: Plan: Continue protein supplements with meals Continue to monitor May need to consider Megace in the future Plan VTE prophylaxis - Eliquis Diet - regular Disposition - admit to [facility] Awaiting PT/OT evaluations (patient refused OT today) AMINATA is working with patient's son regarding possible LTC with [facility] Admission and Anticipated Discharge Date Admission Date: March 27, 2022 Subjective Patient was awake sitting up in chair. She had no complaints. AMINATA is working on placement Per nursing patient continued to complain of feet pain, was given Tylenol and some improvement. Review of Systems Constitutional: + fatigue and + weakness; no fever and no chills Respiratory: no cough, no chest congestion and no dyspnea Cardiovascular: no chest pain, no dyspnea, no lightheadedness and no calf pain Gastrointestinal: no abdominal pain, no nausea and no vomiting Musculoskeletal: bilateral heel pain Integumentary: contusion left ear, and left and right head Neurologic: + gait abnormality, + falls, + localized weakness and + tremor(s); no paralysis, no numbness, no seizure-like activity and no headache(s) Psychiatric: no depression, no irritability, no suicidal ideation and no panic attacks Physical Exam Constitutional: + thin, + frail appearing, cooperative and comfortable Neck: trachea midline, no thyromegaly Respiratory: normal respiratory effort, lungs clear to auscultation Cardiovascular: Rate/Rhythm: regular rate and regular rhythm Heart Sounds: + murmur (apical holosystolic murmur) Hard to palpate DP and PT pulses bilaterally. Faint pulse bilateral possibly left >right Popliteal pulses palpated bilaterally but decreased as well. Gastrointestinal (Abdomen): normal bowel sounds, soft, nontender, no hepatosplenomegaly Neurologic: patellar DTR's 2+ bilat, sensation intact and PERRL, EOMI, accommodation nl, no face palsy, no dysarthria parkinsons tremor Psychiatric: Orientation: alert, oriented to person and oriented to place Results & Data Results & Data ([facility]) Vital Signs (Past 12 Hours) Vital Signs Temp Pulse Resp BP BP Pulse Ox O2 Del Method 03/31/22 07:54 36.7 C 62 18 204/70 H 212/71 H 94 Room Air Laboratory Results Abnormal lab results 03/31/22 03/31/22 Range/Units 07:14 07:14 RBC 3.65 L (3.93-5.22) M/uL Hgb 11.0 L (12.0-16.0) g/dl Hct 32.2 L (34.1-44.9) % Sodium 128 L (136-145) mmol/L Chloride 94 L (98-107) mmol/L PG Care Time/CCT Total # of Minutes Spent Total Time Spent with Patient: Total time spent is greater than 50% in coordination of care (as documented) at patient's floor/unit and/or counseling patient: Coding Level of Care Code 79380 SUB INP/OBS CARE 2/35MIN Diagnoses Recurrent falls R29.6 Parkinson disease G20 Acute UTI N39.0 Atrial fibrillation I48.11 Atrial fibrillation type: longstanding persistent Acid reflux disease K21.9 Hypertension I10 Heel pain, bilateral M79.671; M79.672 Severe protein-calorie malnutrition E43 (1) Atrial fibrillation Atrial fibrillation type: longstanding persistent Qualified Code(s): I48.11 - Longstanding persistent atrial fibrillation
[2022-03-31] MEDS: ATORVASTATIN 10 MG TAB PO SCH (19:36)
[2022-04-01] MEDS: amLODIPine BESYLATE 5 MG TAB PO SCH (07:17)
[2022-04-01] MEDS: METOPROLOL SUCC 50MG EXT REL TAB PO SCH ×2 (07:17→21:50)
[2022-04-01] MEDS: lisinopril 5 MG TAB PO SCH (07:17)
[2022-04-01] MEDS: SPIRONOLACTONE 25 MG TAB PO SCH (07:18)
[2022-04-01] MEDS: cloNIDine HCL 0.1 MG TAB PO SCH ×3 (07:18→21:50)
[2022-04-01] MEDS: CALCIUM 600MG + VIT D 400 IU TAB PO SCH ×2 (08:33→21:50)
[2022-04-01] MEDS: DOCUSATE SODIUM 100 MG CAP PO SCH (08:33)
[2022-04-01] MEDS: MULTIVITAMIN TAB PO SCH (08:33)
[2022-04-01] MEDS: PANTOprazole 40 MG TAB PO SCH (08:33)
[2022-04-01] MEDS: CARBIDOPA/LEVODOPA 25/100MG TAB PO SCH ×3 (08:34→21:50)
[2022-04-01] MEDS: ACETAMINOPHEN 500 MG TAB PO SCH (08:34)
[2022-04-01] MEDS: APIXABAN 2.5 MG TAB PO SCH ×2 (08:34→15:34)
[2022-04-01] MEDS: LORazepam 0.5 MG TAB PO SCH ×2 (08:36→21:52)
[2022-04-01 09:44] LABS: BUN Creatinine Ratio 18.3 (10-20); Calcium 9.4 mg/dl (8.5-10.1); Creatinine Clr Calc Pharmacy 27.2 ml/min; Potassium 4.6 mmol/L (3.5-5.1)
--- NOTE | 2022-04-01 13:40 | Hospitalist Progress Note ---
Date of Service April 01, 2022 Assessment & Plan (1) Recurrent falls: Plan: Parkinson's disease likely contributing to increased falls No significant reversible etiology Patient does not want to reduce her lorazepam - continue to encourage reduction of this B12 level was normal at 797 Patient with bilateral foot/heel pain may be contributing to her falls Decreased dital pulses Check RYLEE bilaterally (was scheduled yesterday and patient refused to go) Also likely that patient's Parkinsons may also be affecting her gait and causing falls Case management to discuss rehab placement with family and patient [facility] has a bed available and transportation is for tomorrow at 10 AM Continue PT/OT (2) Parkinson disease: Plan: Continue her usual Sinemet (3) Acute UTI: Plan: Questionable diagnosis made Urine culture with mixed probable skin genesis WBC improved - likely was elevated on admission due to acute phase reactant due to falls Will stop Cefdinir (urine culture negative) (4) Atrial fibrillation: Plan: Continue apixaban 2.5mg PO BID - consider stopping if she continues to be such a high falls risk Continue metoprolol succinate 100mg PO BID (5) Acid reflux disease: Plan: Continue pantoprazole 20 mg p.o. daily (6) Hypertension: Plan: Continue her usual medications: Amlodipine 5 mg p.o. daily, clonidine 0.1 mg p.o. twice daily, 0.2 mg p.o. at bedtime, lisinopril 5 mg p.o. daily, metoprolol succinate 100 mg p.o. twice daily, spironolactone 25 mg p.o. every other day. BP today 119/70 (7) Heel pain, bilateral: Plan: May be contributing to her falls Continue OT PT evaluation Check Ankle Brachial Index (decreased distal pulses) (8) Severe protein-calorie malnutrition: Plan: hyponatremia trending sodium. Continue protein supplements with meals Continue to monitor May need to consider Megace in the future Plan VTE prophylaxis - Eliquis Diet - regular Disposition - admit to [facility] Bed available to [facility] for 04/02/22 Admission and Anticipated Discharge Date Admission Date: March 27, 2022 Subjective Patient is awake sitting up in the chair. She was working with OT today. She was to have RYLEE yesterday and refused to go because she wanted to eat her lunch. Patient has placement to [facility] and is scheduled to go tomorrow at 10:00 AM. Patient denies any new complaints today. Review of Systems Constitutional: + fatigue and + weakness; no fever and no chills Respiratory: no cough, no chest congestion and no dyspnea Cardiovascular: no chest pain, no dyspnea, no lightheadedness and no calf pain Gastrointestinal: no abdominal pain, no nausea and no vomiting Musculoskeletal: bilateral heel pain Integumentary: contusion left ear, and left and right head Neurologic: + gait abnormality, + falls, + localized weakness and + tremor(s); no paralysis, no numbness, no seizure-like activity and no headache(s) Psychiatric: no depression, no irritability, no suicidal ideation and no panic attacks Physical Exam Constitutional: + thin, + frail appearing, cooperative and comfortable Neck: trachea midline, no thyromegaly Respiratory: normal respiratory effort, lungs clear to auscultation Cardiovascular: Rate/Rhythm: regular rate and regular rhythm Heart Sounds: + murmur (apical holosystolic murmur) DP, PT pulses thready and weak R>L Popliteal pulse palpable bilaterally Gastrointestinal (Abdomen): normal bowel sounds, soft, nontender, no hepatosplenomegaly Neurologic: patellar DTR's 2+ bilat, sensation intact and PERRL, EOMI, accommodation nl, no face palsy, no dysarthria Psychiatric: Orientation: alert, oriented to person and oriented to place Results & Data Results & Data ([facility]) Vital Signs (Past 12 Hours) Vital Signs Temp Pulse Resp BP Pulse Ox O2 Del Method 04/01/22 08:32 68 119/70 94 Room Air 04/01/22 07:11 37.3 C 78 16 234/99 H 94 Room Air 04/01/22 07:16 60 208/62 H Laboratory Results Abnormal lab results 04/01/22 Range/Units 08:45 Sodium 128 L (136-145) mmol/L Chloride 93 L (98-107) mmol/L Glucose 113 H (70-99(Fasting)) mg/dl PG Care Time/CCT Total # of Minutes Spent Total Time Spent with Patient: Total time spent is greater than 50% in coordination of care (as documented) at patient's floor/unit and/or counseling patient: Coding Level of Care Code 68109 SUB INP/OBS CARE 1/25MIN Diagnoses Recurrent falls R29.6 Parkinson disease G20 Acute UTI N39.0 Atrial fibrillation I48.11 Atrial fibrillation type: longstanding persistent Acid reflux disease K21.9 Hypertension I10 Heel pain, bilateral M79.671; M79.672 Severe protein-calorie malnutrition E43 (1) Atrial fibrillation Atrial fibrillation type: longstanding persistent Qualified Code(s): I48.11 - Longstanding persistent atrial fibrillation
--- NOTE | 2022-04-01 14:34 | Ultrasound Report ---
US ankle/brachial index ltd HISTORY: 81 years-old Female decreased pedal pulses bilaterally peripheral arterial disease COMPARISON: None TECHNIQUE: Segmental pressures of the lower extremities FINDINGS: Limited exam secondary to patient inability to hold still throughout the study. The right brachial, d orsalis pedis and posterior tibial pressures were unable to be obtained. Left brachial is 120, dorsalis pedis unable to be measured. The posterior tibial pressure is 43 corre lating with RYLEE of 0.36. IMPRESSION: Limited study as above. Decreased RYLEE on the left left suggestive of severe peripheral ar terial disease. ACT 112: Negative or not required by law. The above report was generated using voice recognition software. It may contain grammatical, syntax o r spelling errors. Electronically signed by: Maurilio Patricio M.D. 04/01/2022 2:32 PM
[2022-04-02] MEDS: amLODIPine BESYLATE 5 MG TAB PO SCH (07:32)
[2022-04-02] MEDS: cloNIDine HCL 0.1 MG TAB PO SCH (07:32)
[2022-04-02] MEDS: lisinopril 5 MG TAB PO SCH (07:33)
[2022-04-02] MEDS: METOPROLOL SUCC 50MG EXT REL TAB PO SCH (07:33)
[2022-04-02] MEDS: APIXABAN 2.5 MG TAB PO SCH (07:34)
[2022-04-02] MEDS: ACETAMINOPHEN 500 MG TAB PO SCH (08:48)
[2022-04-02] MEDS: DOCUSATE SODIUM 100 MG CAP PO SCH (08:49)
[2022-04-02] MEDS: PANTOprazole 40 MG TAB PO SCH (08:49)
[2022-04-02] MEDS: CALCIUM 600MG + VIT D 400 IU TAB PO SCH (08:49)
[2022-04-02] MEDS: CARBIDOPA/LEVODOPA 25/100MG TAB PO SCH (08:49)
[2022-04-02] MEDS: MULTIVITAMIN TAB PO SCH (08:50)
[2022-04-02] MEDS: LORazepam 0.5 MG TAB PO SCH (08:51)
[2022-04-02 11:28] LABS: BUN Creatinine Ratio 20.6 (10-20); Calcium 9.4 mg/dl (8.5-10.1); Creatinine Clr Calc Pharmacy 29.2 ml/min; Est GFR (African American) 55.6 ml/min; Potassium 4.4 mmol/L (3.5-5.1)
--- NOTE | 2022-04-02 17:04 | Discharge Summary ---
Date of Service April 02, 2022 Admission HPI Per Admitting Provider Shakila Manzo is an 81 year old female with Parkinson's and dementia who presents to the ER with recurrent falls. The patient was here yesterday for a fall and was for discharged back to assisted living. Reportedly fell a further 3 times today. No chest pain, shortness of breath or dizziness prior to falling. Falls due to being unsteady on her feet. Unable to get herself back up. Family understandably concerned with her returning to assisted living. She denies any injuries from the fall and is mostly concerned about getting her dinner. Diagnosis of UTI made yesterday although she denies any dysuria, change in urine color, smell or frequency. No back tenderness. No fever or chills. She wishes to stay on the same antibiotic she is on despite urine culture contaminated showing mixed genesis. She declines straight cath urine collection. Principal Diagnosis Recurrent falls due to Parkinson's disease Atrial fibrillation chronic stable Hypertension chronic stable Severe p Discharge Exam Patient was seen in company of her daughter she is in no acute distress respiratory status was stable Discharge Data Allergies Allergy/AdvReac Type Severity Reaction Status Date / Time diclofenac Allergy Unknown Unknown Verified 03/27/22 18:23 ciprofloxacin AdvReac Unknown "i get Verified 03/27/22 18:23 irregular heartbeat." Penicillins AdvReac Unknown Unknown Verified 03/27/22 18:23 Consultations 03/27/22 17:50 ED Decision to Admit Stat Ordered Studies 03/27/22 14:[address] [CT head/brain wo con] Stat 03/27/22 14:19 CT cervical spine wo con Stat 04/01/22 US ankle/brachial index ltd Routine Hospital Course (1) Recurrent falls: Chronic and unstable. Parkinson's disease contributing to increased falls No significant reversible etiology Patient does not want to reduce her lorazepam - continue to encourage reduction of this B12 level was normal at 797 Encouraged follow-up with neurologist Dr. Tucker for alternative treatments of her Parkinson's disease [facility] for subacute rehab (2) Parkinson disease: Continue her usual Sinemet (3) Acute UTI: Questionable diagnosis made Urine culture with mixed probable skin genesis WBC improved - likely was elevated on admission due to acute phase reactant due to falls Urine culture negative and antibiotics stopped without complete course (4) Atrial fibrillation: Chronic and stable continue apixaban 2.5mg PO BID - Continue metoprolol succinate 100mg PO BID (5) Acid reflux disease: Continue pantoprazole 20 mg p.o. daily (6) Hypertension: Chronic and stable, continue her usual medications: Amlodipine 5 mg p.o. daily, clonidine 0.1 mg p.o. twice daily, 0.2 mg p.o. at bedtime, lisinopril 5 mg p.o. daily, metoprolol succinate 100 mg p.o. twice daily, spironolactone 25 mg p.o. every other day. (7) Heel pain, bilateral: (8) Severe protein-calorie malnutrition: hyponatremiaacute on chronic improving Recommend continue trending sodium. Plan Patient DNR/DNI on presentation Total Time Total Time Spent Total Time Spent (In Minutes): It required greater than 30 minutes to prepare this patient for discharge Discharge Plan Discharge Items Patient Disposition: Transfer Residential Fac Reason For Visit: RECURRENT FALLS Discharge Diagnosis: Recurrent falls due to Parkinson's disease Atrial fibrillation chronic stable Hypertension chronic stable Severe protein calorie malnutrition Activity: Per Instructions section Activity Comment: As per PT OT Non-emergency contact: Primary Care Provider Call non-emergency contact if: your symptoms worsen Follow-up/Referrals: Shanta Olivares MD [Primary Care Provider] - Diet: Regular Addtl Attending Provider Instructions: Patient's falls are felt to be secondary to her Parkinson's disease with continued physical occupational therapy During her stay she did have some issues with low sodium recommending checking this on intervals during her stay at [facility] facility Initial concerns for UTI were unfounded but patient did receive antibiotic therapy of cefdinir waiting for culture results Pending Studies at Discharge: No Stand-Alone Forms: My [facility] Skilled Items Patient informed of condition?: Yes DNR: Yes Discharge Level of Care: Skilled Communicable Disease: No Discharge Prognosis: Stable Lines: None Urinary Catheter: No Medications and DC Order Prescriptions: Continued amlodipine 5 mg tablet 5 mg PO DAILY Qty: 90 3RF pantoprazole 20 mg tablet,delayed release (DR/EC) 20 mg PO DAILY Qty: 90 3RF spironolactone 25 mg tablet 25 mg PO Q OTHER DAY Qty: 45 3RF atorvastatin 10 mg tablet 10 mg PO Q2D Qty: 45 3RF lisinopril 5 mg tablet 5 mg PO DAILY Qty: 90 3RF apixaban 2.5 mg tablet 2.5 mg PO BID Qty: 180 3RF Rx Instructions: TAKES 0800 & 1600 lorazepam 0.5 mg tablet 0.5 mg PO BID Qty: 60 5RF metoprolol succinate 100 mg tablet extended release 24 hr 100 mg PO BID calcium carbonate-vitamin D3 [Calcium 600 + D(3)] 600 mg(1,500mg) -400 unit tablet 1 tab PO BID docusate sodium 100 mg capsule 200 mg PO DAILY polyethylene glycol 3350 17 gram powder in packet 17 gm PO DAILY PRN (Reason: constipation) carbidopa-levodopa 25-100 mg tablet 1 tab PO TID Rx Instructions: TAKES AT 0800, 1400 & 2000 multivitamin Tablet 1 tab PO DAILY acetaminophen [Tylenol Extra Strength] 500 mg Tablet 1,000 mg PO QAM MDD 3 GRAMS/24 HOURS acetaminophen [Tylenol Extra Strength] 500 mg Tablet 1,000 mg PO TID MDD 3 GRAMS/24 HOURS PRN (Reason: Pain) clonidine HCl 0.1 mg tablet 0.1 mg PO BID Rx Instructions: TAKES AT 0800 & 1600 clonidine HCl 0.2 mg tablet 0.2 mg PO HS Rx Instructions: TAKE 1 TABLET BY MOUTH AT BEDTIME*HYPERTENSION* Discontinued lidocaine 5 % ointment See Rx Instructions TOP .COMPLEX Qty: 30 0RF Rx Instructions: topical; Apply topically for vaginal exams (DME) miscellaneous medical supply misc See Dose Instructions .ROUTE .MEDSUPPLY Qty: 1 Rx Instructions: As directed cefdinir 300 mg capsule 300 mg PO BID 7 Days Qty: 14 0RF Rx Instructions: STARTED 03/26/22 FOR 7 DAYS lorazepam 0.5 mg Tablet 0.5 mg PO BID PRN (Reason: Anxiety) Discharge Orders: Discharge Order (Routine); Ordered 04/02/22 Ordered By: Remigio Fernandez Admission Data Admit Date/Time: 03/27/22 18:10 Attending Provider: Remigio Fernandez Admit Provider: Aditya Gregg Primary Care Provider: Shanta Olivares V. Other Providers: Aditya Gregg ; Neha Fountain [place] ; [facility] ; [facility] Other Interventions: Discharge Summary Assessment (RN) Last Done: 04/02/22 09:59 Coding Level of Care Code HOSP INP/OBS DISCH >30 MIN Diagnoses Recurrent falls R29.6 Parkinson disease G20 Acute UTI N39.0 Atrial fibrillation I48.11 Atrial fibrillation type: longstanding persistent Acid reflux disease K21.9 Hypertension I10 Heel pain, bilateral M79.671; M79.672 Severe protein-calorie malnutrition E43
== END 2022-04-02 11:02 | DRG 56 ==
LOC: ED 13:38 → SUATTDRO 18:10 → 3N 18:10